=== PATIENT | female | born 1995 | race Caucasian/White ===

== ENCOUNTER 2022-08-26 11:41 | Outpatient (CLI) | payer OTHER, SELFPAY | END 2022-08-26 11:42 | disposition home or self-care (01) | LOC: ANHLAB 11:48 | PROVIDERS: PCP Internal Medicine; Visit Provider Obstetrics & Gynecology | DX: O20.0 Threatened abortion (principal) | CPT/HCPCS: 36415; 84702 ==

== ENCOUNTER 2022-08-27 05:43 | Emergency (ER) | payer OTHER, SELFPAY ==
--- NOTE | ~2022-08-27 | US_ITS ---
Pelvic ultrasound. Clinical History: First trimester , abdominal pain Technique: Realtime transabdominal and transvaginal scanning of the pelvis was performed. Color flow Doppler and Doppler spectral analysis were performed. Findings: The uterus is anteverted. There is an irregular gestational sac. Average sac diameter of 2 cm corresponds to an estimated gestational age of 6 weeks 6 days, but no distinct pole or yolk sac identified. The right ovary measures 2.6 x 3.1 x 2.1 cm. No significant right ovarian or adnexal mass is seen. The left ovary is not visualized. No significant left ovarian or adnexal mass is seen. There is no evidence of free fluid in the cul de sac. Impression: Irregular intrauterine gestational sac with estimated gestational age of 6 weeks 6 days by average sa c diameter, but no visible pole or yolk sac. Findings are suspicious for blighted ovum versus m issed /spontaneous in progress. Reviewed, dictated and finalized at location [facility]. Impression: Irregular intrauterine gestational sac with estimated gestational age of 6 week s 6 days by average sac diameter, but no visible pole or yolk sac. Findin gs are suspicious for blighted ovum versus missed /spontaneous in progress.
[2022-08-27 05:45] VITALS: BP 121/74; PULSE 51; RESP 18; TEMP 36.9; O2SAT 98
--- NOTE | 2022-08-27 06:53 | PC.NURSE ---
Pt states she is 7 weeks . Yesterday morning she had some vaginal bleeding that lessened throughout the day. She called her OB's office and went in and had blood drawn and has an ultrasound scheduled for this morning. She denies any current vaginal bleeding. States she came in this morning because she woke up around 0500 with lower abdominal cramping. States cramping comes in waves. Denies nausea/vomiting.
[2022-08-27 07:12] LABS: Basophils Percent Auto 0.5 % (0.2-1.2); Eosinophils Absolute Auto 0.1 K/mm3 (0-0.3); Eosinophils Percent Auto 0.6 % (0-4.4); Hematocrit 45.7 % (37.0-47.0); Hemoglobin 15.4 g/dL (12.0-15.0); Immature Granulocyte Absolute 0.03 K/mm3 (0.00-0.031); Immature Granulocyte Percent A 0.4 % (0-0.5); Lymphocytes Absolute Auto 2.47 K/mm3 (0.9-3.2); Lymphocytes Percent Auto 28.9 % (18.3-44.2); Mean Corpuscular HGB Conc 33.7 g/dl (32-36); Mean Corpuscular Hemoglobin 30.2 pg (26-34); Mean Corpuscular Volume 89.6 fl (80-100); Mean Platelet Volume 9.2 fl (7.4-10.4); Monocytes Absolute Auto 0.7 K/mm3 (0.1-0.6); Monocytes Percent Auto 8.2 % (2.6-8.5); Neutrophils Absolute Auto 5.3 K/mm3 (1.3-6.7); Neutrophils Percent Auto 61.4 % (45.5-73.1); Platelet Count Result 327 k/mm3 (150-375); Red Cell Distribution Width 13.8 % (11.5-14.5); White Blood Count 8.6 K/mm3 (4.5-10.0)
[2022-08-27 07:22] LABS: Lipase 43 U/L (23-300)
[2022-08-27 07:23] LABS: Alanine Aminotransferase 22 U/L (6-35); Albumin Level 3.9 g/dL (3.5-5.1); Alkaline Phosphatase 51 U/L (38-126); Anion Gap 7 mmol/L (8-16); Aspartate Amino Transferase 20 U/L (14-36); Bilirubin,Total 0.7 mg/dL (0.2-1.3); Blood Urea Nitrogen 12 mg/dL (7-17); Calcium 8.9 mg/dL (8.4-10.2); Carbon Dioxide 23 mmol/L (22-30); Chloride 107 mmol/L (98-107); Estimated CRCL calculation 112 ml/min; Estimated Glomerular Filt Rate > 60; Glucose 87 mg/dL (65-110); Potassium 3.8 mmol/L (3.4-5.0); Sodium 137 mmol/L (137-145)
--- NOTE | 2022-08-27 07:39 | ED.ABDPAIN ---
HPI - Abdominal Pain General Chief Complaint: Abdominal Pain Stated Complaint: abd pain Time Seen by Provider: 08/27/22 07:39 Source: patient and family Mode of arrival: ambulatory Limitations: no limitations History of Present Illness HPI narrative: Patient is 6, para 0, 3 presented to the ED with lower abdominal cramps that started at 5 AM. Intermittent. Patient been having vaginal spotting for over 1 week, was seen by her family physician 4 days ago for vaginal spotting, had pelvic ultrasound at that time. Patient believes that she is 7 weeks . She denies any fever, chills, nausea, vomiting. Review of Systems Review of Systems: All systems reviewed & are unremarkable except as noted in HPI and below Exam Narrative: General appearance: Well-developed, well-nourished Skin: Normal color Head: Normocephalic, nontraumatic Eyes: Clear conjunctiva ENT: Oropharynx normal, ears normal, nose normal Neck: Supple, nontender Chest and respiratory: Airway patent, no respiratory distress, no accessory muscle use Heart: Regular rate/rhythm Abdomen: Soft, nontender, no organomegaly, quiet bowel sounds Vascular: Normal peripheral pulses, normal capillary refill. Musculoskeletal: Normal range of motion, nontender back Neurologic: Alert and oriented ?3, CLINICAL UNIT COORDINATOR is normal as tested, no gross motor deficit Course Vital Signs Vital signs: Vital Signs Temperature 36.9 C 08/27/22 05:45 Pulse Rate 51 L 08/27/22 05:45 Respiratory Rate 18 08/27/22 05:45 Blood Pressure 121/74 08/27/22 05:45 Pulse Oximetry 98 08/27/22 05:45 Oxygen Delivery Room Air 08/27/22 05:45 Temperature 36.9 C 08/27/22 05:45 Pulse Rate 51 L 08/27/22 05:45 Respiratory Rate 18 08/27/22 05:45 Blood Pressure 121/74 08/27/22 05:45 Pulse Oximetry 98 08/27/22 05:45 Oxygen Delivery Room Air 08/27/22 05:45 MDM - Abdominal Pain Lab Data 08/27/22 07:05 08/27/22 07:05 Labs: Lab Results 08/27/22 08/27/22 Range/Units 07:05 08:25 WBC 8.6 (4.5-10.0) K/mm3 RBC 5.10 (4.2-5.4) M/mm3 Hgb 15.4 H (12.0-15.0) g/dL Hct 45.7 (37.0-47.0) % MCV 89.6 (80-100) fl MCH 30.2 (26-34) pg MCHC 33.7 (32-36) g/dl RDW 13.8 (11.5-14.5) % Plt Count 327 (150-375) k/mm3 MPV 9.2 (7.4-10.4) fl Immature Gran % (Auto) 0.4 (0-0.5) % Neut % (Auto) 61.4 (45.5-73.1) % Lymph % (Auto) 28.9 (18.3-44.2) % Hale % (Auto) 8.2 (2.6-8.5) % Eos % (Auto) 0.6 (0-4.4) % Baso % (Auto) 0.5 (0.2-1.2) % Lymph # (Auto) 2.47 (0.9-3.2) K/mm3 Hale # (Auto) 0.7 H (0.1-0.6) K/mm3 Eos # (Auto) 0.1 (0-0.3) K/mm3 Baso # (Auto) 0.0 (0.0-0.1) K/mm3 Abs Immat Gran (auto) 0.03 (0.00-0.031) K/mm3 Absolute Neuts (auto) 5.3 (1.3-6.7) K/mm3 Absolute Nucleated RBC 0.0 (0.0-0.012) K/mm3 Nucleated RBC % 0.0 (0.0-0.2) % Sodium 137 (137-145) mmol/L Potassium 3.8 (3.4-5.0) mmol/L Chloride 107 (98-107) mmol/L Carbon Dioxide 23 (22-30) mmol/L Anion Gap 7 L (8-16) mmol/L BUN 12 (7-17) mg/dL Creatinine 0.70 (0.7-1.0) mg/dL Estim Creat Clear Calc 112 ml/min Estimated GFR > 60 (59 - ) Glucose 87 (65-110) mg/dL Calcium 8.9 (8.4-10.2) mg/dL Total Bilirubin 0.7 (0.2-1.3) mg/dL AST 20 (14-36) U/L ALT 22 (6-35) U/L Alkaline Phosphatase 51 (38-126) U/L Total Protein 7.0 (6.3-8.2) g/dL Albumin 3.9 (3.5-5.1) g/dL Lipase 43 (23-300) U/L Beta HCG, Quant 92529.00 mIU/ML Urine Color Pending Urine Appearance Pending Urine pH Pending Ur Specific Honeydew Pending Urine Protein Pending Urine
[2022-08-27 08:55] VITALS: BP 118/84; PULSE 80; RESP 16; O2SAT 100
[2022-08-27 08:56] LABS: Bacteria Urine 4+ /hpf; Bilirubin Urine Negative (Negative); Blood Urine Trace (Negative); Color Urine Yellow (Yellow); Glucose Urine UA Negative (Negative); Ketones Urine Negative (Negative); Leukocyte Esterase Ur Trace LEU/UL (Negative); Nitrate Urine Positive (Negative); Non Pathogenic Casts 0-2; Protein Urine Negative (Negative); RBC Urine 0-2 /hpf (0-2); Specific Grav Ur 1.012 (1.001-1.035); Squamous Epithelial Cell Urine Few /hpf (Few); Urobilinogen Urine 0.2 mg/dL (<2.0); pH Urine 7.5 (5.0-9.0)
[2022-08-27 09:01] LABS: Add Urine Microscopic? YES; Appearance Urine Clear (Clear)
== END 2022-08-27 08:55 | disposition home or self-care (01) ==
PROVIDERS: Emergency Medicine; Emergency Provider Emergency Medicine; PCP Internal Medicine
DX: O20.0 Threatened abortion (principal); Z3A.01 Less than 8 weeks gestation of pregnancy
CPT/HCPCS: 36415; 76801; 76817; 80053; 81001; 83690; 84702; 85025; 85461; 86850; 86900; 86901; 87077; 87086; 87186; 99284

== ENCOUNTER 2022-10-01 02:19 | Day surgery (SDC) | payer OTHER, SELFPAY ==
[2022-09-28 09:13] VITALS: BMI 41.0
--- NOTE | 2022-09-28 09:16 | PC.NURSE ---
Report to the Outpatient Waiting Room, entrance under the green pavilion located off [facility], at time 0700 on date 10/01/22. Planned Procedure Time: 0900. Time changes happen often and if your time is changed the preop area will call you the afternoon before. - You and your visitor will be asked to self-screen and do not enter if you have any COVID symptoms. - A mask is optional within the hospital at this time. Patients may have clear liquids (water, carbonated beverages, clear teas, apple juice) until 3 hours prior to surgery with a maximum of 20 ounces. - No food from midnight until time of surgery Take the following medications with a SIP of water the morning of surgery: N/A DO NOT STOP ANY OF YOUR OTHER PRESCRIPTION MEDICATIONS PRIOR TO SURGERY ?EXCEPT THE FOLLOWING Medications to discontinue per physician: N/A Date to take last dose: N/A Please no make-up, nail armenian, hairspray, perfume, deodorant, or body powder the day of surgery. No jewelry (including any body piercings) or valuables the day of surgery, leave them at home. Please take a shower or bath the night before, or the morning of, surgery with an antibacterial soap. Wear comfortable, loose fitting clothing. - Jewelry must be removed prior to entering the operating room. Rings and piercings that are not removed may be cut off. - The hospital will not accept responsibility for valuables. - Please leave all valuables, including medications, at home the day of surgery. If you are going home after surgery, a licensed double bottom driver must drive you home. - NO public transportation without another adult if you receive anesthesia. - We recommend that an adult stay with you for 24 hours following discharge. - We also recommend that you do not drive, make important decision, drink alcoholic beverages, or take any drugs that were not prescribed by your health care provider for at least 24 hours after your discharge time. Follow any additional instructions given to you from your surgeon. If you or anyone in your household have experienced Covid symptoms in the past week, please notify your surgeon or the nurse liaison at the phone number below for possible testing. Telephone instructions given to PT - ENRIQUE MI and asked if any additional questions and then verbalized understanding. Patient advised to call surgeon office or pre surgery nurse liaison [phone] if any additional questions.
[2022-10-01] MEDS: LACTATED RINGERS 1,000 ML 30 ML IV CONT ×2 (07:26→10:06)
[2022-10-01] MEDS: ONDANSETRON INJ 4 MG/2 ML VIAL IV PUSH (07:32)
[2022-10-01] MEDS: FAMOTIDINE 20 MG/2 ML VIAL IV PUSH (07:32)
[2022-10-01] MEDS: ACETAMINOPHEN 500 MG TABLET 1000 MG PO (07:33)
--- NOTE | 2022-10-01 07:39 | WPDANESEPPF ---
Anes - Initial Pre Proc Eval Procedure: Operation Date: 10/01/22 09:00 Proposed Procedures p Suction Dilation and Curettage - Pamela Rosales MD Date/Time: 10/01/22 07:39 Surgeon: Pamela Rosales MD Pre Op Diagnosis: Missed Ab Patient Data Age: 26 Gender: F Height: 1.52 m Weight: 95.25 kg Allergies Allergy/AdvReac Type Severity Reaction Status Date / Time No Known Allergies Allergy Verified 10/01/22 07:39 Home Medications Medication Instructions Recorded Confirmed Type No Home Medications 09/28/22 09/28/22 History Patient hx anesthesia problems: none Family hx anesthesia problems: none Results Review: All pre-operative results and documents have been reviewed as part of the pre-operative evaluation. FORMERLY [facility], [facility] Past Medical History Medical History (Updated 10/01/22 @ 07:39 by Marcio Garcia MD) Morbid obesity Social History Social History Smoking status: Never smoker Alcohol intake: current Drinks per week: 3 Alcohol use details: WHEN NOT Substance use: never Substance use type: does not use Living arrangements: with family Spiritual care concerns: No Anes - Eval Final PreProcedure Day of Procedure 10/01/22 07:39 Patient weight: morbidly obese Heart: regular rate and rhythm Lungs: clear to auscultation Airway: Mallampati scale class II Neurological: alert and oriented Last oral intake: >/= 8 hours ASA classification: II Emergent: no Anesthetic plan: proceed Anesthesia type and monitoring: general GIVS Results Review: All pre-operative results and documents have been reviewed as part of the pre-operative evaluation. Informed Consent: The patient's anesthetic plan and its attendant risks and benefits were discussed with the patient/family/POA. Questions were solicited and answers provided to the satisfaction of the patient/family/POA.
[2022-10-01 07:41] VITALS: BP 114/72; PULSE 75; RESP 18; TEMP 36.6; O2SAT 100
--- NOTE | 2022-10-01 09:17 | WPDHPUPDATE1 ---
History and Physical Update Update Date/Time: 10/01/22 09:17 History and Physical has been reviewed, including an updated exam of the patient. There are NO changes in the patient's condition. Risks, benefits, and alternatives have been discussed and questions answered. Patient agrees to proceed with procedure.
[2022-10-01] MEDS: LIDOCAINE HCL 1% LOCAL INJ 20 ML VIAL INFILTRATE (09:57)
[2022-10-01] MEDS: KETOROLAC 30 MG/ML VIAL (*BKC) IV PUSH (09:57)
--- NOTE | 2022-10-01 10:00 | SUR.OPER ---
x2 specimens sent One specimen was labeled products of conception for chromosomal analysis and another specimen was labeled products of conception and placed formalin for possible molar . Surgeon out specimen himself. Formalin specimen placed in path room per circulating nurse and chromosome analysis specimen sent to lab per PCT.
[2022-10-01 10:06] VITALS: BP 99/64; PULSE 95; RESP 16; O2SAT 96
--- NOTE | 2022-10-01 10:18 | W.PM.PROC2 ---
Procedure Note - Detailed Date of Procedure 10/01/22 Pre-op Diagnosis Missed Ab Post-op Diagnosis Same Procedure Performed Suction D&C Surgeon Pamela Rosales MD Anesthesia MAC Indications missed Findings normal-appearing vulva vagina and cervix to. Moderate amount of products conception within the uterus. 8 cm uterus Description of Procedure the patient was taken the operating room. She was prepped and draped in dorsal lithotomy position after induction of mac anesthesia. A speculum was placed in the vagina. Cervix grasped with tenaculum. The cervix was dilated to about 1 cm Using Bain dilators. A 8. Hebrew curved curette was used to perform suction D&C. The curette was introduced and vacuum was applied. The curette was removed over all surfaces of the intrauterine cavity multiple times. This was done until all the surfaces were clear and had the familiar grainy texture they can be felt through the instrument. A sharp curette was then used to curettage all the surfaces. The suction cup was then reapplied 1 more time to remove any debris. The instruments were removed. The speculum and tenaculum were removed. The patient tolerated the procedure well. She was taken recovery room stable condition. Estimated Blood Loss -200.0 Drains No Packing No Pathology Yes Complications No immediate complications Condition Stable Disposition PACU
[2022-10-01 10:30] VITALS: BP 108/69; PULSE 69; RESP 16; O2SAT 100
[2022-10-01 11:00] VITALS: BP 121/71; PULSE 68; RESP 16
== END 2022-10-01 11:10 | disposition home or self-care (01) ==
PROVIDERS: PCP Internal Medicine; Visit Provider Obstetrics & Gynecology
PROC: (CPT 59820; principal; 2022-10-01 09:00)
DX: O02.1 Missed abortion (principal)
CPT/HCPCS: 59820; 88264; 88305; A9270; J1100; J1885; J2250; J2405; J2704; J3010; J7120

== ENCOUNTER 2022-11-10 12:59 | Outpatient (CLI) | payer OTHER, SELFPAY ==
[2022-11-10 14:01] LABS: Beta HCG Quantitative 13.22 mIU/ML
== END 2022-11-10 13:00 | disposition home or self-care (01) ==
PROVIDERS: PCP Internal Medicine; Visit Provider Obstetrics & Gynecology
DX: N91.2 Amenorrhea, unspecified (principal)
CPT/HCPCS: 36415; 84702

== ENCOUNTER 2022-11-16 12:22 | Outpatient (CLI) | payer OTHER, SELFPAY ==
[2022-11-16 14:43] LABS: Beta HCG Quantitative 6.92 mIU/ML
== END 2022-11-16 12:23 | disposition home or self-care (01) ==
PROVIDERS: PCP Internal Medicine; Visit Provider Obstetrics & Gynecology
DX: O03.9 Complete or unspecified spontaneous abortion without complication (principal)
CPT/HCPCS: 36415; 84702

== ENCOUNTER 2022-12-16 12:32 | Outpatient (RCR) | payer OTHER, SELFPAY ==
[2022-12-19 10:25] LABS: Progesterone 26.1 ng/mL (***)
== END 2023-03-16 23:59 | disposition home or self-care (01) ==
LOC: ANHLAB 12:32
PROVIDERS: PCP Internal Medicine; Visit Provider Obstetrics & Gynecology
DX: Z87.59 Personal history of other complications of pregnancy, childbirth and the puerperium (principal)
CPT/HCPCS: 36415; 84144; 84702

== ENCOUNTER 2022-12-18 12:23 | Outpatient (RCR) | payer OTHER, SELFPAY ==
[2022-11-08 17:58] LABS: Beta HCG Quantitative 22.87 mIU/ML
[2022-11-26 13:17] LABS: Basophils Percent Auto 0.5 % (0.2-1.2); Eosinophils Absolute Auto 0.1 K/mm3 (0-0.3); Eosinophils Percent Auto 1.1 % (0-4.4); Hematocrit 46.7 % (37.0-47.0); Hemoglobin 15.5 g/dL (12.0-15.0); Immature Granulocyte Absolute 0.01 K/mm3 (0.00-0.031); Immature Granulocyte Percent A 0.1 % (0-0.5); Lymphocytes Absolute Auto 2.81 K/mm3 (0.9-3.2); Mean Corpuscular HGB Conc 33.2 g/dl (32-36); Mean Corpuscular Hemoglobin 30.5 pg (26-34); Mean Corpuscular Volume 91.9 fl (80-100); Mean Platelet Volume 9.3 fl (7.4-10.4); Monocytes Absolute Auto 0.6 K/mm3 (0.1-0.6); Monocytes Percent Auto 6.9 % (2.6-8.5); Neutrophils Percent Auto 58.4 % (45.5-73.1); Platelet Count Result 328 k/mm3 (150-375); Red Blood Count 5.08 M/mm3 (4.2-5.4); Red Cell Distribution Width 13.5 % (11.5-14.5); White Blood Count 8.5 K/mm3 (4.5-10.0)
[2022-11-26 13:41] LABS: Alanine Aminotransferase 24 U/L (6-35); Albumin Level 4.2 g/dL (3.5-5.1); Alkaline Phosphatase 59 U/L (38-126); Anion Gap 10 mmol/L (8-16); Aspartate Amino Transferase 25 U/L (14-36); Bilirubin,Total 0.8 mg/dL (0.2-1.3); Blood Urea Nitrogen 14 mg/dL (7-17); Calcium 8.8 mg/dL (8.4-10.2); Carbon Dioxide 22 mmol/L (22-30); Chloride 104 mmol/L (98-107); Cholesterol 180 mg/dL (0-200); Estimated Glomerular Filt Rate > 60; Glucose 87 mg/dL (65-110); HDL Direct 46 mg/dL; Potassium 4.4 mmol/L (3.4-5.0); Sodium 136 mmol/L (137-145); Triglycerides 120 mg/dL (<150)
[2022-11-26 13:52] LABS: LDL Cholesterol Direct 103 mg/dL
[2022-11-26 13:56] LABS: Beta HCG Quantitative < 2.39 mIU/ML
[2022-11-26 18:00] LABS: Vitamin D 25 Hydroxy 37.8 ng/mL
== END 2023-02-04 23:59 | disposition home or self-care (01) ==
LOC: ANHLAB 12:23
PROVIDERS: PCP Internal Medicine; Visit Provider Obstetrics & Gynecology
DX: Z32.01 Encounter for pregnancy test, result positive (principal); E55.9 Vitamin D deficiency, unspecified
CPT/HCPCS: 36415; 80053; 80061; 82306; 84702; 85025

== ENCOUNTER 2023-02-08 16:14 | Emergency (ER) | payer OTHER, SELFPAY ==
[2023-02-08 16:50] VITALS: BP 104/75; PULSE 89; RESP 16; TEMP 36.8; O2SAT 96
--- NOTE | 2023-02-08 17:25 | ED.URI ---
HPI - URI/Sore Throat General Chief Complaint: Upper Respiratory Infection Stated Complaint: Sinus Pressure Time Seen by Provider: 02/08/23 17:25 Source: patient Mode of arrival: ambulatory Limitations: no limitations History of Present Illness HPI Narrative: 27-year-old female presents with complaint of left-sided sinus pressure, postnasal drainage, nasal congestion for 5 days. Afebrile. Taking OTC mucinex, nasal spray, antihistamine and sudafed. Pt is 13 wks . Taking . Checked with soda fountain clerk before starting OTC meds. All systems reviewed and negative except as noted above. Related Data Home Medications Medication Instructions Recorded Confirmed ondansetron 4 mg disintegrating 4 mg PO Q8-10H PRN Nausea 02/08/23 02/08/23 tablet progesterone micronized 200 mg 200 mg PO DAILY 02/08/23 02/08/23 capsule Allergies Allergy/AdvReac Type Severity Reaction Status Date / Time No Known Allergies Allergy Verified 02/08/23 16:56 Review of Systems Review of Systems: CONSTITUTIONAL: Denies fever, chills, or sweats. Reports fatigue. EYES: Denies visual changes, redness, or discharge. ENT: Reports rhinorrhea, congestion, sinus pressure. Denies sore throat, or otalgia. CARDIOVASCULAR: Denies chest pain, palpitations, or edema. RESPIRATORY: Denies cough or dyspnea. GASTROINTESTINAL: Denies abdominal pain, nausea, vomiting, or diarrhea. GENITOURINARY: Denies dysuria or hematuria. SKIN: Denies rash or itching. MUSCULOSKELETAL: Denies back pain, joint pain, or myalgia. NEUROLOGIC: Denies headache, numbness, or weakness. PSYCHIATRIC: Denies anxiety or depression. All other systems reviewed are negative, except as documented in HPI. [facility] Past Medical History Medical History (Updated 02/08/23 @ 17:32 by Stephany Anderson NP) Morbid obesity Social History Social History Smoking status: Never smoker Alcohol intake: current Drinks per week: 3 Alcohol use details: WHEN NOT Substance use: never Substance use type: does not use Living arrangements: with family Spiritual care concerns: No Comments At time of signature, agree with nursing past medical, surgical, social and family history. There is no relevant family history pertinent to the presenting complaint. Exam Narrative: GENERAL: This is a well-nourished, well-developed patient, in no apparent distress. HEAD: normocephalic, atraumatic. EYES: PERRL. Sclera clear/white. Vision is grossly intact. EARS: External ears normal, auditory canals clear and without drainage, erythema, purulence fluid, retracted to left TM without perforation. Right TM is normal. Hearing grossly intact. NOSE: External nose normal with purulent nasal drainage, erythema and swelling to bilateral nares. Left-sided frontal and maxillary sinus tenderness on palpation. THROAT: Mucous membranes moist, clear postnasal drainage. NECK: Neck supple, non-tender without lymphadenopathy, masses or thyromegaly. CARDIOVASCULAR: Regular rate and rhythm without murmurs, gallops, or rubs. RESPIRATORY: Clear to auscultation. Breath sounds equal bilaterally. No wheezes, rales, or rhonchi. SKIN: warm, Dry, intact with no suspicious lesions or rash, good texture and turgor. NEURO: awake, alert, and oriented to person, place and time. There were no obvious focal neurologic abnormalities. EXTREMITIES: No joint tenderness, effusion, or edema noted. Course Course Level of Care: Express Care Visit Vital Signs Vital signs: Vital Signs Temperature 36.8 C 02/08/23 16:50 Pulse Rate 89 02/08/23 16:50 Respiratory Rate 16 02/08/23 16:50 Blood Pressure 104/75 02/08/23 16:50 Pulse Oximetry 96 02/08/23 16:50 Oxygen Delivery Room Air 02/08/23 16:50 Temperature 36.8 C 02/08/23 16:50 Pulse Rate 89 02/08/23 16:50 Respiratory Rate 16 02/08/23 16:50 Blood Pressure 104/75 02/08/23 16
== END 2023-02-08 17:40 | disposition home or self-care (01) ==
PROVIDERS: Emergency Provider Nurse Practitioner Family; PCP Internal Medicine
DX: H66.92 Otitis media, unspecified, left ear (principal); J01.90 Acute sinusitis, unspecified; Z79.899 Other long term (current) drug therapy
CPT/HCPCS: 99213; G0463

== ENCOUNTER 2023-06-26 06:15 | Observation (INO) | payer OTHER, SELFPAY ==
[2023-06-26] VITALS (25 sets, daily range): BP systolic 109–121; BP diastolic 66–72; PULSE 82–116; O2SAT 96–99
--- NOTE | ~2023-06-26 | US_ITS ---
US OB limited, US OB transvaginal DATE: 06/26/2023 08:01 (accession [id number]), 06/26/2023 08:02 (accession [id number]) INDICATION: Vaginal bleeding TECHNIQUE: Real-time imaging via transabdominal and transvaginal approaches COMPARISON: 08/27/2022 obstetrical ultrasound FINDINGS: Live bailey intrauterine gestation, fetus in longitudinal lie, vertex presentation with heart rate of 129 bpm. The placenta is situated posteriorly on the left. Amniotic fluid index measures 19.7 cm, normal. (5th percentile CARLOS: 8.6 cm; 95th percentile CARLOS: 24.2 cm The cervix measures approximately 3 cm length, with mild funneling and mild fluid in the cervical can al. IMPRESSION: Uterine cervix measures approximately 3 cm length, with mild funneling Vertex presentation Amniotic fluid index measures 19.7 cm, normal Reviewed, dictated and finalized at [facility]. Reviewed, dictated and finalized at location A. IMPRESSION: Uterine cervix measures approximately 3 cm length, with mild funnel ing Vertex presentation Amniotic fluid index measures 19.7 cm, normal
[2023-06-26 07:13] LABS: Basophils Percent Auto 0.3 % (0.2-1.2); Eosinophils Absolute Auto 0.1 K/mm3 (0-0.3); Eosinophils Percent Auto 0.8 % (0-4.4); Hematocrit 36.2 % (37.0-47.0); Hemoglobin 12.1 g/dL (12.0-15.0); Immature Granulocyte Absolute 0.05 K/mm3 (0.00-0.031); Immature Granulocyte Percent A 0.4 % (0-0.5); Lymphocytes Absolute Auto 1.79 K/mm3 (0.9-3.2); Lymphocytes Percent Auto 15.2 % (18.3-44.2); Mean Corpuscular HGB Conc 33.4 g/dl (32-36); Mean Corpuscular Hemoglobin 29.9 pg (26-34); Mean Corpuscular Volume 89.4 fl (80-100); Mean Platelet Volume 10.1 fl (7.4-10.4); Monocytes Absolute Auto 0.8 K/mm3 (0.1-0.6); Monocytes Percent Auto 6.9 % (2.6-8.5); Neutrophils Percent Auto 76.4 % (45.5-73.1); Platelet Count Result 309 k/mm3 (150-375); Red Blood Count 4.05 M/mm3 (4.2-5.4); Red Cell Distribution Width 13.4 % (11.5-14.5); White Blood Count 11.8 K/mm3 (4.5-10.0)
[2023-06-26 07:23] LABS: Alanine Aminotransferase 13 U/L (6-35); Albumin Level 3.5 g/dL (3.5-5.1); Alkaline Phosphatase 90 U/L (38-126); Anion Gap 7 mmol/L (4-12); Aspartate Amino Transferase 15 U/L (14-36); Bilirubin,Total 0.5 mg/dL (0.2-1.3); Blood Urea Nitrogen 7 mg/dL (7-17); Calcium 10.3 mg/dL (8.4-10.2); Carbon Dioxide 21 mmol/L (22-30); Chloride 107 mmol/L (98-107); Estimated Glomerular Filt Rate > 60; Glucose 103 mg/dL (65-110); Potassium 3.5 mmol/L (3.4-5.0); Sodium 135 mmol/L (137-145)
[2023-06-26] MEDS: NIFEdipine 10 MG CAPSULE PO ×3 (07:29→08:29)
[2023-06-26] MEDS: TERBUTALINE SULFATE 1 MG/ML VIAL 0.25 MG SUB-Q (08:53)
--- NOTE | 2023-06-26 10:50 | PM.IMHP ---
H&P: HPI History of Present Illness Date/Time: 06/26/23 10:50 Chief Complaint: vaginal bleeding Narrative: 27-year-old multipara at 31 weeks who presented with vaginal bleeding. She denies any contractions or loss of fluid. She reports good movement. She denies any nausea, vomiting, fever, chills. She denies any chest pain shortness of breath. She denies any headache, blurry vision, epigastric pain. Patient was evaluated. Speculum exam revealed a closed cervix. Additional spot cervical exam with a closed cervix. Cervical length on ultrasound was 3 cm. No evidence of abruption on ultrasound. Small amount of bright red blood initially turned dark blood. She was observed and given tocolytics for contractions that she could not feel. She is given nifedipine than terbutaline. Really resolved her contractions. She had reassuring heart rate tracing for gestational age. We agreed to discharge. She was given strict , detailed precautions. Review of Systems Review of Systems: All systems reviewed & are unremarkable except as noted in HPI and below Constitutional: Constitutional: Denies chills, Denies fatigue, Denies fever(s) and Denies weakness Eyes: Eyes: Denies blurry vision, Denies change in vision, Denies loss of peripheral vision, Denies loss of vision, Denies other visual disturbances and Denies eye pain ENT: Denies vertigo, Denies dizziness, Denies hearing loss, Denies mouth pain, Denies nasal obstruction, Denies neck mass and Denies neck pain Cardiovascular: Cardiovascular: Denies chest pain, Denies diaphoresis, Denies syncope, Denies leg edema and Denies dyspnea Respiratory: Respiratory: Denies chest congestion, Denies cough, Denies hemoptysis, Denies dyspnea and Denies wheezing Gastrointestinal: Gastrointestinal: Denies abdominal pain, Denies constipation, Denies diarrhea, Denies nausea and Denies vomiting Genitourinary: Genitourinary: Denies hematuria, Denies change in libido, Denies nocturia, Denies genital lesions, Denies flank pain and Denies urinary urgency Musculoskeletal: Musculoskeletal: Denies abnormal gait, Denies back pain, Denies myalgias, Denies arthralgias, Denies joint swelling, Denies muscle weakness and Denies neck pain Integumentary/Breasts: Skin/Breast: Denies swelling, Denies breast pain, Denies breast mass, Denies dry skin, Denies nipple discharge, Denies unusual bruising and Denies jaundice Neurologic: Denies Neuro-related abnormal movements, Denies Abnormal speech present, Denies abnormal gait, Denies behavioral changes, Denies confusion, Denies vertigo, Denies dizziness, Denies syncope, Denies loss of vision, Denies memory loss, Denies convulsions and Denies weakness Psychiatric: Psychiatric: Denies abnormal sleep pattern, Denies behavioral changes, Denies change in libido, Denies confusion, Denies depression, Denies anhedonia and Denies memory loss Endocrine: Endocrine: Reports no additional endocrine complaints, Denies change in libido and Denies fatigue Hematologic/Lymphatic: Hematologic/Lymphatic: Reports no additional hematologic/lymphatic complaints Allergic/Immunologic: Allergic/Immunologic: Reports no additional allergic/immunologic complaints and Denies wheezing PMFSH Past Medical History Medical History (Updated 06/26/23 @ 10:53 by Pamela Rosales MD) Morbid obesity Social History Social History Smoking status: Never smoker Alcohol intake: current Drinks per week: 3 Alcohol use details: WHEN NOT Substance use: never Substance use type: does not use Living arrangements: with family Spiritual care concerns: No Meds Home Medications and Allergies Home Medications Medication Instructions Recorded Confirmed Type ondansetron 4 mg disintegrating 4 mg PO Q8-10H PRN Nausea 02/08/23 06/26/23 History tablet vit no.133-ferrous 1 tablet PO DAILY 06/26/23 06/26/23 History fum
--- NOTE | 2023-07-20 07:42 | PM.OBTRLD ---
OB - Triage/Final Diagnosis Visit Information Comments/Additional reasons for admission: I have assessed the risk for this patient, Edilma Moon, and determined that she would benefit from observation care. Evaluation Laboratory results: Laboratory Tests 06/26/23 07:04 WBC 11.8 H RBC 4.05 L Hgb 12.1 D Hct 36.2 L MCV 89.4 MCH 29.9 MCHC 33.4 RDW 13.4 Plt Count 309 MPV 10.1 Immature Gran % (Auto) 0.4 Neut % (Auto) 76.4 H Lymph % (Auto) 15.2 L [place] % (Auto) 6.9 Eos % (Auto) 0.8 Baso % (Auto) 0.3 Lymph # (Auto) 1.79 [place] # (Auto) 0.8 H Eos # (Auto) 0.1 Baso # (Auto) 0.0 Abs Immat Gran (auto) 0.05 H Absolute Neuts (auto) 9.0 H Absolute Nucleated RBC 0.000 Nucleated RBC % 0.0 Sodium 135 L Potassium 3.5 Chloride 107 Carbon Dioxide 21 L Anion Gap 7 BUN 7 D Creatinine 0.70 Estim Creat Clear Calc Not Reportable Estimated GFR > 60 Glucose 103 Calcium 10.3 H Total Bilirubin 0.5 AST 15 ALT 13 Alkaline Phosphatase 90 Total Protein 7.0 Albumin 3.5 Blood Type O Positive Antibody Screen Negative Final Diagnosis (1) Other antepartum hemorrhage, third trimester: Code(s): O46.8X3 - Other antepartum hemorrhage, third trimester Status: Acute
--- NOTE | 2023-07-20 08:10 | PM.OBTRLD ---
OB - Triage/Final Diagnosis Visit Information Comments/Additional reasons for admission: I have assessed the risk for this patient, Edilma Moon, and determined that she would benefit from observation care. Evaluation Laboratory results: Laboratory Tests 06/26/23 07:04 WBC 11.8 H RBC 4.05 L Hgb 12.1 D Hct 36.2 L MCV 89.4 MCH 29.9 MCHC 33.4 RDW 13.4 Plt Count 309 MPV 10.1 Immature Gran % (Auto) 0.4 Neut % (Auto) 76.4 H Lymph % (Auto) 15.2 L [place] % (Auto) 6.9 Eos % (Auto) 0.8 Baso % (Auto) 0.3 Lymph # (Auto) 1.79 [place] # (Auto) 0.8 H Eos # (Auto) 0.1 Baso # (Auto) 0.0 Abs Immat Gran (auto) 0.05 H Absolute Neuts (auto) 9.0 H Absolute Nucleated RBC 0.000 Nucleated RBC % 0.0 Sodium 135 L Potassium 3.5 Chloride 107 Carbon Dioxide 21 L Anion Gap 7 BUN 7 D Creatinine 0.70 Estim Creat Clear Calc Not Reportable Estimated GFR > 60 Glucose 103 Calcium 10.3 H Total Bilirubin 0.5 AST 15 ALT 13 Alkaline Phosphatase 90 Total Protein 7.0 Albumin 3.5 Blood Type O Positive Antibody Screen Negative Final Diagnosis (1) Other antepartum hemorrhage, third trimester: Code(s): O46.8X3 - Other antepartum hemorrhage, third trimester Status: Acute
== END 2023-06-26 10:30 | disposition home or self-care (01) ==
PROVIDERS: Admitting Provider Obstetrics & Gynecology; PCP Internal Medicine; Visit Provider Obstetrics & Gynecology
DX: O46.93 Antepartum hemorrhage, unspecified, third trimester (principal); Z3A.31 31 weeks gestation of pregnancy; Z79.899 Other long term (current) drug therapy
CPT/HCPCS: 36415; 76815; 76817; 80053; 85025; 86850; 86900; 86901; 96372; A9270; G0378; G0379; J3105

== ENCOUNTER 2023-06-27 23:42 | Observation (INO) | payer OTHER, SELFPAY ==
--- NOTE | 2023-06-27 23:42 | OBADM ---
This patient, Edilma Moon, admitted to the OB room OB Post 116 for observation. Patient/family oriented to hospital policies and general routines including ID bracelet, bed and alarms, visiting hours, pain management, procedures, bathroom and other care routines, personal items, smoking policy, room service/diet, and visiting hours. Patient/Family are encouraged to report perceived risks to care and to ask questions if they do not understand what they are told or what they should do.
[2023-06-27 23:50] VITALS: BMI 41.8
[2023-06-28] VITALS (31 sets, daily range): BP systolic 101–121; BP diastolic 49–73; PULSE 79–117; RESP 16–18; TEMP 36.6–36.8; O2SAT 97–100
--- NOTE | 2023-06-28 00:15 | PC.NURSE ---
Notified Dr. Rosales of patient arrival to OB unit with complaint of abdominal pain and vaginal bleeding. Patient tomasz q1-2minutes with complaint of increased lower abdominal pain with palpation. Patient reports increased bright right vaginal bleeding noted 30minutes ago. Vaginal bleeding was noted upon evaluation. Orders recieved for d5LR IV 1000ml bolus now and terbutaline subq up to 3 doses.
[2023-06-28] MEDS: DEXTROSE 5%/LACTATED RINGERS 1,000 ML 999 ML IV CONT (00:45)
[2023-06-28] MEDS: TERBUTALINE SULFATE 1 MG/ML VIAL 0.25 MG SUB-Q ×2 (00:46→01:13)
[2023-06-28 01:10] LABS: Bacteria Urine None Seen /hpf; Non Pathogenic Casts 0-2; RBC Urine >100 /hpf (0-2); Squamous Epithelial Cell Urine Occasional /hpf (Few)
[2023-06-28 01:20] LABS: Appearance Urine Cloudy (Clear); Bilirubin Urine 1+ (Negative); Blood Urine 3+ (Negative); Color Urine Red (Yellow); Glucose Urine UA Negative (Negative); Ketones Urine Negative (Negative); Leukocyte Esterase Ur 1+ LEU/UL (Negative); Nitrate Urine Negative (Negative); Protein Urine 2+ mg/dL (Negative); Specific Grav Ur 1.012 (1.001-1.035)
[2023-06-28 01:22] LABS: Add Urine Microscopic? YES
--- NOTE | 2023-06-28 02:22 | PC.NURSE ---
Notified Dr. Rosales of UA results and patient continued contractions after fluid bolus and terbutaline. Patient HR >100 at this time. Patient states she is no longer feeling contractions. Orders recieved for procardia 10mg [id number] x3 doses.
[2023-06-28] MEDS: NIFEdipine 10 MG CAPSULE PO ×3 (02:33→03:35)
--- NOTE | 2023-06-28 04:38 | PC.NURSE ---
Updated Dr. Rosales on maternal and assessments. Contractions have resolved and patient denies any cramping or pain at this time. FHT appropriate for gestational age. Patient still having bright red vaginal bleeding, small amounts of vaginal bleeding noted on chux pads when patient ambulates to restroom. No additional orders at this time.
--- NOTE | 2023-06-28 08:08 | PC.NURSE ---
Dr. Rosales at the bedside discussing POC with the pt. Pt and Dr. Rosales agree to discharge to be seen in the OB office immediately after discharge from hospital for additional ultrasound and decide further POC.
--- NOTE | 2023-06-28 08:19 | PM.IMHP ---
H&P: HPI History of Present Illness Date/Time: 06/28/23 08:19 Chief Complaint: Vaginal bleeding narrative: This patient is a 27-year-old multiparous female at 31 weeks gestation who presented for a 2nd time in 2 days with vaginal bleeding. Initially the vaginal bleeding quickly resolved and became dark. This episode has shown persistent bright red bleeding that was modest and then taper down to a very small amount. Patient denies any contractions, loss of fluid. she reports good movement. She denies any nausea, vomiting, fever, chills. Review of Systems Review of Systems: All systems reviewed & are unremarkable except as noted in HPI and below Constitutional: Constitutional: Denies chills, Denies fatigue, Denies fever(s) and Denies weakness Eyes: Eyes: Denies blurry vision, Denies change in vision, Denies loss of peripheral vision, Denies loss of vision, Denies other visual disturbances and Denies eye pain ENT: Denies vertigo, Denies dizziness, Denies hearing loss, Denies mouth pain, Denies nasal obstruction, Denies neck mass and Denies neck pain Cardiovascular: Cardiovascular: Denies chest pain, Denies diaphoresis, Denies syncope, Denies leg edema and Denies dyspnea Respiratory: Respiratory: Denies chest congestion, Denies cough, Denies hemoptysis, Denies dyspnea and Denies wheezing Gastrointestinal: Gastrointestinal: Denies abdominal pain, Denies constipation, Denies diarrhea, Denies nausea and Denies vomiting Genitourinary: Genitourinary: Denies hematuria, Denies change in libido, Denies nocturia, Denies genital lesions, Denies flank pain and Denies urinary urgency Musculoskeletal: Musculoskeletal: Denies abnormal gait, Denies back pain, Denies myalgias, Denies arthralgias, Denies joint swelling, Denies muscle weakness and Denies neck pain Integumentary/Breasts: Skin/Breast: Denies swelling, Denies breast pain, Denies breast mass, Denies dry skin, Denies nipple discharge, Denies unusual bruising and Denies jaundice Neurologic: Denies Neuro-related abnormal movements, Denies Abnormal speech present, Denies abnormal gait, Denies behavioral changes, Denies confusion, Denies vertigo, Denies dizziness, Denies syncope, Denies loss of vision, Denies memory loss, Denies convulsions and Denies weakness Psychiatric: Psychiatric: Denies abnormal sleep pattern, Denies behavioral changes, Denies change in libido, Denies confusion, Denies depression, Denies anhedonia and Denies memory loss Endocrine: Endocrine: Reports no additional endocrine complaints, Denies change in libido and Denies fatigue Hematologic/Lymphatic: Hematologic/Lymphatic: Reports no additional hematologic/lymphatic complaints Allergic/Immunologic: Allergic/Immunologic: Reports no additional allergic/immunologic complaints and Denies wheezing PMFSH Past Medical History Medical History (Updated 06/26/23 @ 10:53 by Pamela Rosales MD) Morbid obesity Social History Social History Smoking status: Never smoker Alcohol intake: current Drinks per week: 3 Alcohol use details: WHEN NOT Substance use: never Substance use type: does not use Living arrangements: with family Spiritual care concerns: No Meds Home Medications and Allergies Home Medications Medication Instructions Recorded Confirmed Type vit no.133-ferrous 1 tablet PO DAILY 06/26/23 06/28/23 History fumarate 28 mg-folic acid 800 mcg tablet () Allergies Allergy/AdvReac Type Severity Reaction Status Date / Time No Known Allergies Allergy Verified 06/28/23 04:11 Vital Signs Vital Signs - 24 hr 06/28/23 00:05 06/28/23 00:06 06/28/23 00:10 Temperature 97.9 F Pulse Rate 79 Respiratory Rate 18 Blood Pressure 119/73 Pulse Oximetry 99 99 Oxygen Delivery 06/28/23 00:15 06/28/23 00:20 06/28/23 00:45 Temperature Pulse Rate 84 Respiratory Rate Blood
[2023-06-28] MEDS: NIFEdipine 30 MG TAB.ER.24 PO (08:24)
== END 2023-06-28 08:37 | disposition home or self-care (01) ==
PROVIDERS: Admitting Provider Obstetrics & Gynecology; PCP Internal Medicine; Visit Provider Obstetrics & Gynecology
DX: O46.8X3 Other antepartum hemorrhage, third trimester (principal); Z3A.32 32 weeks gestation of pregnancy; Z79.899 Other long term (current) drug therapy
CPT/HCPCS: 81001; 87086; 96372; A9270; G0378; G0379; J3105; J7121

== ENCOUNTER 2023-07-03 23:29 | Observation (INO) | payer OTHER, SELFPAY ==
[2023-07-04 00:18] LABS: Appearance Urine Clear (Clear); Bacteria Urine None Seen /hpf; Bilirubin Urine Negative (Negative); Blood Urine 3+ (Negative); Color Urine Yellow (Yellow); Glucose Urine UA Negative (Negative); Ketones Urine Negative (Negative); Leukocyte Esterase Ur 1+ LEU/UL (Negative); Nitrate Urine Negative (Negative); Non Pathogenic Casts 0-2; Protein Urine Negative (Negative); RBC Urine 0-2 /hpf (0-2); Specific Grav Ur 1.008 (1.001-1.035); Squamous Epithelial Cell Urine Occasional /hpf (Few); Urobilinogen Urine 0.2 mg/dL (<2.0); pH Urine 6.5 (5.0-9.0)
[2023-07-04 00:23] LABS: Add Urine Microscopic? YES
[2023-07-04] MEDS: LACTATED RINGERS 1,000 ML 999 ML IV CONT (00:53)
[2023-07-04 00:54] VITALS: BMI 41.8
--- NOTE | 2023-07-04 00:54 | OBADM ---
This patient, Edilma Moon, admitted to the OB room Labor/Delivery/Recovery 106 for observation. Patient/family oriented to hospital policies and general routines including ID bracelet, bed and alarms, visiting hours, pain management, procedures, bathroom and other care routines, personal items, smoking policy, room service/diet, and visiting hours. Patient/Family are encouraged to report perceived risks to care and to ask questions if they do not understand what they are told or what they should do.
[2023-07-04 02:03] VITALS: TEMP 36.4
[2023-07-04] MEDS: NITROFURANTOIN MONOHYD MACROCR 100 MG CAP PO (02:13)
--- NOTE | 2023-07-29 21:15 | PM.OBTRLD ---
OB - Triage/Final Diagnosis Visit Information Comments/Additional reasons for admission: I have assessed the risk for this patient, Edilma Moon, and determined that she would benefit from observation care. Evaluation Laboratory results: Laboratory Tests 07/04/23 00:07 Urine Color Yellow Urine Appearance Clear Urine pH 6.5 Ur Specific [place] 1.008 Urine Protein Negative Urine Glucose (UA) Negative Urine Ketones Negative Ur Blood (Man) 3+ H Urine Nitrate Negative Urine Bilirubin Negative Urine Urobilinogen 0.2 Leukocyte Esterase Rfl 1+ H Urine RBC 0-2 Urine WBC 6-10 H Ur Squamous Epith Cells Occasional Urine Bacteria None seen Urine Casts 0-2 Final Diagnosis (1) False labor: Code(s): O47.9 - False labor, unspecified Status: Acute
== END 2023-07-04 02:17 ==
PROVIDERS: Admitting Provider Obstetrics & Gynecology; PCP Internal Medicine; Visit Provider Obstetrics & Gynecology
DX: O47.03 False labor before 37 completed weeks of gestation, third trimester (principal); Z3A.33 33 weeks gestation of pregnancy
CPT/HCPCS: 81001; 87086; 87088; A9270; G0378; G0379; J7120

== ENCOUNTER 2023-07-06 03:36 | Inpatient (IN) | payer OTHER, SELFPAY ==
[2023-07-06] VITALS (133 sets, daily range): BP systolic 99–129; BP diastolic 53–82; PULSE 73–123; RESP 16–20; TEMP 36.5–37.6; O2SAT 95–100; BMI 35.9
[2023-07-06] MEDS: LACTATED RINGERS 1,000 ML 75 ML IV CONT (04:46)
[2023-07-06] MEDS: MAGNESIUM SULF 6 GM/WATER150ML 6 GM/150 ML BAG IVPB (04:46)
[2023-07-06] MEDS: MAGNESIUM SULF 20GM/WATER500ML 500 ML 50 MG IV CONT (05:24)
[2023-07-06] MEDS: AMPICILLIN 2 GM/NS 100 ML 2 GM/100 ML BAG IVPB (05:24)
[2023-07-06 05:30] LABS: Basophils Percent Auto 0.1 % (0.2-1.2); Eosinophils Percent Auto 0.2 % (0-4.4); Hematocrit 39.9 % (37.0-47.0); Hemoglobin 13.1 g/dL (12.0-15.0); Immature Granulocyte Absolute 0.11 K/mm3 (0.00-0.031); Immature Granulocyte Percent A 0.7 % (0-0.5); Lymphocytes Absolute Auto 1.03 K/mm3 (0.9-3.2); Lymphocytes Percent Auto 6.1 % (18.3-44.2); Mean Corpuscular HGB Conc 32.8 g/dl (32-36); Mean Corpuscular Hemoglobin 29.7 pg (26-34); Mean Corpuscular Volume 90.5 fl (80-100); Mean Platelet Volume 10.7 fl (7.4-10.4); Monocytes Percent Auto 5.7 % (2.6-8.5); Neutrophils Absolute Auto 14.7 K/mm3 (1.3-6.7); Neutrophils Percent Auto 87.2 % (45.5-73.1); Platelet Count Result 341 k/mm3 (150-375); Red Blood Count 4.41 M/mm3 (4.2-5.4); Red Cell Distribution Width 13.4 % (11.5-14.5); White Blood Count 16.9 K/mm3 (4.5-10.0)
[2023-07-06] MEDS: BETAMETHASONE SOD PHOS/ACETATE 30 MG/5 ML VIAL 12 MG IM (05:55)
--- NOTE | 2023-07-06 05:55 | LDADM ---
This patient, Edilma Moon, was admitted to OB Post 115 on 07/06/23 at 03:37. Plans for labor, pain management and were discussed with patient. Patient/family oriented to hospital policies and general routines including ID bracelet, bed and alarms, visiting hours, pain management, procedures, bathroom and other care routines, personal items, smoking policy, room service/diet and guest tray routines, infant security routines, and visiting hours. Patient/Family are encouraged to report perceived risks to care and to ask questions if they do not understand what they are told or what they should do. See [facility] for further documentation.
--- NOTE | 2023-07-06 06:23 | P.HP_ITS ---
H&P: [facility] History of Present Illness Date/Time: 07/06/23 06:23 Chief Complaint: G 5 P 0 at 33.6 weeks gestation arrived in LD with complaints of contractions and spotting. Pt was found to be [address] Campo notified and magnesium sulfate and antibiotics initiated. Pt has been complicated by now resolved placenta previa. pt was admitted to [facility] week after a bleeding episode, GBS negative at that time and pt released with treatment for UTI. 07/04 pt didn't think UTI meds were working still frequency and some pain switched to keflex and sent in for a dose of steroids. Hx covid during , obesity, GERD. surgical history consists of d& c and tonsillectomy. Review of Systems Review of Systems: All systems reviewed & are unremarkable except as noted in HPI and below Constitutional: Constitutional: Reports as per HPI [facility] Past Medical History Medical History (Updated 07/06/23 @ 06:[address] CNM) Morbid obesity Social History Social History Smoking status: Never smoker Alcohol intake: current Drinks per week: 3 Alcohol use details: WHEN NOT Substance use: never Substance use type: does not use Living arrangements: with family Spiritual care concerns: No Meds Home Medications and Allergies Home Medications Medication Instructions Recorded Confirmed Type vit no.133-ferrous 1 tablet PO DAILY 06/26/23 06/28/23 History fumarate 28 mg-folic acid 800 mcg tablet () nitrofurantoin 100 mg PO Q12H #10 caps 07/04/23 Rx monohydrate/macrocrystals 100 mg capsule (Macrobid) Allergies Allergy/AdvReac Type Severity Reaction Status Date / Time No Known Allergies Allergy Verified 06/28/23 04:11 Vital Signs Vital Signs - 24 hr 07/06/23 03:48 07/06/23 04:00 07/06/23 04:02 Temperature Pulse Rate 73 78 Respiratory Rate Blood Pressure 119/58 L 125/70 Pulse Oximetry 98 Oxygen Delivery 07/06/23 04:07 07/06/23 04:12 07/06/23 04:15 Temperature Pulse Rate 84 Respiratory Rate Blood Pressure 112/67 Pulse Oximetry 97 98 Oxygen Delivery 07/06/23 04:17 07/06/23 04:56 04/16/24 04:58 Temperature Pulse Rate 84 Respiratory Rate Blood Pressure 110/63 Pulse Oximetry 96 96 Oxygen Delivery 07/06/23 05:00 07/06/23 05:01 07/06/23 05:09 Temperature Pulse Rate 83 Respiratory Rate Blood Pressure 105/62 Pulse Oximetry 99 97 Oxygen Delivery 07/06/23 05:14 07/06/23 05:15 07/06/23 05:16 Temperature Pulse Rate 101 H 99 Respiratory Rate Blood Pressure 124/65 120/66 Pulse Oximetry 97 Oxygen Delivery 07/06/23 05:19 07/06/23 05:24 07/06/23 05:29 Temperature Pulse Rate Respiratory Rate Blood Pressure Pulse Oximetry 97 95 97 Oxygen Delivery 07/06/23 05:34 07/06/23 05:39 07/06/23 05:44 Temperature Pulse Rate Respiratory Rate Blood Pressure Pulse Oximetry 97 100 97 Oxygen Delivery 07/06/23 05:45 07/06/23 05:49 07/06/23 05:54 Temperature Pulse Rate 92 Respiratory Rate Blood Pressure 122/64 Pulse Oximetry 98 97 Oxygen Delivery 07/06/23 05:59 07/06/23 06:00 07/06/23 06:04 Temperature Pulse Rate 90 Respiratory Rate Blood Pressure 121/65 Pulse Oximetry 97 96 Oxygen Delivery 07/06/23 06:09 07/06/23 06:14 07/06/23 06:15 Temperature Pulse Rate 93 Respiratory Rate Blood Pressure 115/69 Pulse Oximetry 96 96 Oxygen Delivery 07/06/23 06:19 07/06/23 04:31 07/06/23 05:54 Temperature Pulse Rate 81 Respiratory Rate 20 Blood Pressure 112/67 Pulse Oximetry 100 96 Oxygen Delivery Room Air 07/06/23 05:15 Temperature 37.6 C H Pulse Rate 97 Respiratory Rate 20 Blood Pressure 122/64 Pulse Oximetry 98 Oxygen Delivery Exam Const: General: cooperative, healthy appearing and comfortable Resp: Effort & Inspection: normal respiratory effort Cardio: Rate: regular rate Rhythm: regular rhythm GI: Other: soft, gravid Skin: General skin exam: normal color Neuro: General: patient oriented x3 Extrem: Right lower extremity: normal to inspection Left lower extremity: normal to inspection H&P: Results Labs Labs: Short CBC 07/06/23 Range/Units 05:21 WBC 16.9 H (4.5-10.0) K/mm3 Hgb 13.1 (12.0-15.0) g/dL Hct 39.9 (37.0-47.0) % Plt Count 341 (150-375) k/mm3 Assessment and Plan Assessment and plan (1) labor: Code(s): O60.00 - labor without delivery, unspecified trimester Status: Acute Assessment and Plan: dr. campo co-managing care continue magnesium sulfate, antibiotics plan epidural continue to observe heart rate category 1 contractions q 1-7 minutes (2) Urinary tract infection: Code(s): N39.0 - Urinary tract infection, site not specified Status: Acute
--- NOTE | 2023-07-06 07:01 | WPDANESEPPF ---
Anes - Initial Pre Proc Eval Procedure: Labor epidural Date/Time: 07/06/23 07:01 Surgeon: Pamela Rosales MD Pre Op Diagnosis: labor pain Pre Op Diagnosis: Bleeding,Cramping Patient Data Age: 27 Gender: F Height: 1.65 m Weight: 98 kg Last Vital Signs Temp 37.6 C H 07/06/23 05:15 Pulse 102 H 07/06/23 06:51 Resp 20 07/06/23 05:15 BP 112/61 07/06/23 06:51 Pulse Ox 100 07/06/23 06:59 O2 Del Method Room Air 07/06/23 05:54 Allergies Allergy/AdvReac Type Severity Reaction Status Date / Time No Known Allergies Allergy Verified 06/28/23 04:11 Home Medications Medication Instructions Recorded Confirmed Type vit no.133-ferrous 1 tablet PO DAILY 06/26/23 06/28/23 History fumarate 28 mg-folic acid 800 mcg tablet () nitrofurantoin 100 mg PO Q12H #10 caps 07/04/23 Rx monohydrate/macrocrystals 100 mg capsule (Macrobid) Laboratory Tests 07/06/23 05:21 WBC 16.9 H K/mm3 (4.5-10.0) RBC 4.41 M/mm3 (4.2-5.4) Hgb 13.1 g/dL (12.0-15.0) Hct 39.9 % (37.0-47.0) MCV 90.5 fl (80-100) MCH 29.7 pg (26-34) MCHC 32.8 g/dl (32-36) RDW 13.4 % (11.5-14.5) Plt Count 341 k/mm3 (150-375) MPV 10.7 H fl (7.4-10.4) Immature Gran % (Auto) 0.7 H % (0-0.5) Neut % (Auto) 87.2 H % (45.5-73.1) Lymph % (Auto) 6.1 L % (18.3-44.2) [place] % (Auto) 5.7 % (2.6-8.5) Eos % (Auto) 0.2 % (0-4.4) Baso % (Auto) 0.1 L % (0.2-1.2) Lymph # (Auto) 1.03 K/mm3 (0.9-3.2) [place] # (Auto) 1.0 H K/mm3 (0.1-0.6) Eos # (Auto) 0.0 K/mm3 (0-0.3) Baso # (Auto) 0.0 K/mm3 (0.0-0.1) Abs Immat Gran (auto) 0.11 H K/mm3 (0.00-0.031) Absolute Neuts (auto) 14.7 H K/mm3 (1.3-6.7) Absolute Nucleated RBC 0.000 K/mm3 (0.0-0.012) Nucleated RBC % 0.0 % (0.0-0.2) RPR Pending Blood Type O Positive Antibody Screen Pending Patient hx anesthesia problems: none Family hx anesthesia problems: none Results Review: All pre-operative results and documents have been reviewed as part of the pre-operative evaluation. [facility] Past Medical History Medical History Morbid obesity Social History Social History Smoking status: Never smoker Alcohol intake: current Drinks per week: 3 Alcohol use details: WHEN NOT Substance use: never Substance use type: does not use Living arrangements: with family Spiritual care concerns: No Anes - Eval Final PreProcedure Day of Procedure 07/06/23 07:01 Patient weight: morbidly obese Heart: regular rate and rhythm Lungs: clear to auscultation Airway: Mallampati scale class II ASA classification: III Anesthesia type and monitoring: regional epidural and standard monitoring Results Review: All pre-operative results and documents have been reviewed as part of the pre-operative evaluation. Informed Consent: The patient's anesthetic plan and its attendant risks and benefits were discussed with the patient/family/POA. Questions were solicited and answers provided to the satisfaction of the patient/family/POA.
--- NOTE | 2023-07-06 07:06 | WPDANESEPN ---
Anes - Epidural Procedure Note Date/Time: 07/06/23 07:06 Consent: I have discussed with the patient/family/POA, the placement of an epidural catheter and the use of epidural narcotic/local anesthetic for labor analgesia and/or postoperative pain management, including associated potential risks, benefits, complications and side effects. I have discussed alternative methods of labor analgesia and/or postoperative pain management. The patient/family/POA, understand(s) and wish(es) to proceed with epidural narcotic/local anesthetic for labor analgesia and/or postoperative pain management. Time-Out: A pre-procedural Time-Out was completed immediately before starting the procedure and confirmed: Patient Identification, Site, Procedure, Patient Position and the Availability of Requisite Equipment. Clinical Indications: labor pain Epidural Insertion Note Patient position: sitting Skin prep: chlorhexidine and sterile drape Needle: 18g Tuohy-Schliff Catheter: 20g Unstyleted Technique: Loss of resistance. Level of insertion: L4/5 Catheter skin amanda (cm): 12 Length in epidural space (cm): 7 Skin anesthesia: lidocaine 1% Test dose: 1.5% Lidocaine with 1:[id number] Epi, negative for subarachnoid Inj and negative for intravascular Inj Time of test dose: 06:44 Observations: tolerated well Complications: none
[2023-07-06] MEDS: LACTATED RINGERS 1,000 ML 125 ML IV CONT (07:07)
[2023-07-06] MEDS: AMPICILLIN 1 GM/NS 50 ML 1 GM/50 ML BAG IVPB (09:40)
--- NOTE | 2023-07-06 09:43 | P.PNOB_ITS ---
OB - PN: Subj Subjective Date/time seen: 07/06/23 09:43 Interval history: SVE 7-8 cm/90/0 station, discussed plan of care with dr. campo and pt. pt aware baby will need immediate evaluation at bs and may need transfer. second dose of antibiotics administered and AROM large amount of bloody fluid, moderate blood also in vaginal vault. FHR category 1 contractions irregular OB - PN: Obj Data Labs 07/06/23 05:21 Labs: Laboratory Results - last 24 hr 07/06/23 05:21 WBC 16.9 H RBC 4.41 Hgb 13.1 Hct 39.9 MCV 90.5 MCH 29.7 MCHC 32.8 RDW 13.4 Plt Count 341 MPV 10.7 H Immature Gran % (Auto) 0.7 H Neut % (Auto) 87.2 H Lymph % (Auto) 6.1 L [place] % (Auto) 5.7 Eos % (Auto) 0.2 Baso % (Auto) 0.1 L Lymph # (Auto) 1.03 [place] # (Auto) 1.0 H Eos # (Auto) 0.0 Baso # (Auto) 0.0 Abs Immat Gran (auto) 0.11 H Absolute Neuts (auto) 14.7 H Absolute Nucleated RBC 0.000 Nucleated RBC % 0.0 Blood Type O Positive Antibody Screen Negative OB - PN A/P Time Spent With Patient Time: Total time spent is greater than 50% in coordination of care (as documented) at patient's floor/unit and/or counseling patient:
[2023-07-06 13:16] LABS: Rapid Plasma Reagin Non-Reactive (NonReactive)
--- NOTE | 2023-07-06 13:26 | PM.OBPRVD ---
OB - Vaginal Delivery Note Procedure Delivery date: 07/06/23 Events: Other (bleeding, labor) Delivery augmentation: Rupture of Membranes and Pitocin Delivery monitor: External FHT and External Uterine Route of delivery: Episiotomy description: None Laceration Description: None Specimen: Yes Quantitative Blood Loss (ml): 125 Anesthesia type: Epidural Disposition: Floor Complications: No immediate complications Baby Date of : 07/06/23 Time of : 13:16 Weeks of gestation at delivery: 33 gender: Female presentation: vertex position: Left Occiput Posterior Placenta delivery description: Spontaneous Cord Vessel Description: 3 Vessels Narrative: baby delivered and to warmer for evaluation by health communications specialist
[2023-07-06] MEDS: OXYTOCIN 30 UNITS/NS 500 ML 30 UNITS/500 ML BAG 125 UNITS IV CONT (13:49)
[2023-07-06] MEDS: FAMOTIDINE 20 MG/2 ML VIAL (13:54)
--- NOTE | 2023-07-06 16:25 | PC.NURSE ---
Patient transferred to post room #[id number] via wheelchair. Support person present. Oriented to unit, room, information board, rooming in, admission packet and security measures. Patient verbalizes understanding.
[2023-07-07 04:15] VITALS: BP 114/77; PULSE 107; RESP 16; TEMP 37.2; O2SAT 99
[2023-07-07] MEDS: ACETAMINOPHEN 325 MG TABLET 650 MG PO (05:13)
[2023-07-07] MEDS: IBUPROFEN 600 MG TABLET PO (05:14)
[2023-07-07 05:44] LABS: Hematocrit 32.1 % (37.0-47.0); Hemoglobin 10.4 g/dL (12.0-15.0)
--- NOTE | 2023-07-07 07:43 | PM.OBPNVD ---
OB - PN: Subj Subjective Date/time seen: 07/07/23 07:43 Interval history: pp day 1 doing well baby doing great! OB - PN: Obj Data Labs 07/07/23 04:08 Labs: Laboratory Results - last 24 hr 07/06/23 07/07/23 07:08 04:08 Hgb 10.4 L Hct 32.1 L RPR Non-reactive OB - PN A/P Plan day: 1 Plan: routine care Time Spent With Patient Time: Total time spent is greater than 50% in coordination of care (as documented) at patient's floor/unit and/or counseling patient: Review of Systems Review of Systems: All systems reviewed & are unremarkable except as noted in HPI and below Exam Const: General: cooperative and healthy appearing Chest: Chest palpation & inspection: normal inspection of the chest Resp: Effort & Inspection: normal respiratory effort GI: Inspection: normal to inspection Skin: General skin exam: normal color
--- NOTE | 2023-07-07 07:47 | WPDANLDPN2 ---
Anes-Prog Note L&D Date/Time: 07/07/23 07:47 Comfortable throughout: labor and delivery Neuraxial method: epidural Epidural/Spinal procedure site: clean & non-tender Neuro status: Neuro function grossly intact. Cardiovascular status: normal Respiratory status: normal Airway patency: baseline Mental status: baseline Post-Op hydration status: normal Vital Signs: Last Vital Signs Temp 99 F 07/07/23 04:15 Pulse 107 H 07/07/23 04:15 Resp 16 07/07/23 04:15 BP 114/77 07/07/23 04:15 Pulse Ox 99 07/07/23 04:15 O2 Del Method Room Air 07/06/23 05:54 Pain score (VAS): 0/10 I/O: Intake & Output 07/06/23 07/06/23 07/07/23 15:59 23:59 07:59 Intake Total 340 Output Total 500 Balance -160 Post-procedural complaints: none Patient feedback: Patient satisfied with anesthetic care.
[2023-07-07 07:51] VITALS: BP 104/54; PULSE 69; RESP 18; TEMP 36.6; O2SAT 98
[2023-07-07] MEDS: DOCUSATE SODIUM 100 MG CAPSULE PO ×2 (07:58→16:57)
[2023-07-07] MEDS: MULTIVIT/MIN/PREN/FOL AC/IRON TABLET 1 TAB PO (07:59)
--- NOTE | 2023-07-07 09:37 | PC.NURSE ---
On 07/07/23, the student, Flora Lovett, provided care and completed [facility] documentation on this patient. I have reviewed the student's documentation and agree with the findings.
--- NOTE | 2023-07-07 13:10 | PC.NURSE ---
[id number] Introductions were made. is in the bassinet with IVF's infusing. Mother is on the phone and addresses RN, however; remains on the phone. Introductions were briefly made. Mother shared the her 33 6/7 infant is not latching and she is pumping without pain to protect her milk supply (pumping hand out provided). Resources provided and name written on the communication board for assistance. Mother voiced understanding of the information.
[2023-07-07 20:00] VITALS: BP 119/74; PULSE 61; RESP 18; TEMP 36.5
[2023-07-08] MEDS: IBUPROFEN 600 MG TABLET PO ×2 (00:11→07:34)
[2023-07-08] MEDS: DOCUSATE SODIUM 100 MG CAPSULE PO (07:34)
--- NOTE | 2023-07-08 08:11 | P.PNOB_ITS ---
OB - PN: Subj Subjective Date/time seen: 07/08/23 08:11 Interval history: pp day 1 doing well baby doing great! Patient comments: no complaints, pain well controlled and tolerating diet OB - PN: Obj Data Labs 07/07/23 04:08 OB - PN A/P Plan day: 2 Plan: routine care and discharge home Time Spent With Patient Time: Total time spent is greater than 50% in coordination of care (as documented) at patient's floor/unit and/or counseling patient: Exam Const: General: comfortable and no acute distress Resp: Effort & Inspection: normal respiratory effort Auscultation: no ra les, no rhonchi and no wheezes Cardio: Rate: regular rate Heart sounds: no click, no murmurs and no rubs GI: GI Palp: Yes Soft to palpation and No Tenderness to palpation present (GI) Auscultation: normal bowel sounds Extrem: General: normal to inspection, no pedal edema and no calf tenderness
--- NOTE | 2023-07-08 08:13 | PM.OBDSVD ---
DS: Admitting Diagnosis Discharge Date July 08, 2023 Admitting Diagnosis Term OB - DS: Summary OB Procedures : None OB Procedures Intrapartum: Spontaneous Vag Delivery OB Procedures: : None Peripartum Data Laceration Description: None Episiotomy description: None Time Spent with Patient Time attestation: Total time spent providing and/or coordinating discharge services: DS: Data Data Completed and Pending Pending studies at discharge: Pending at discharge 07/06/23 13:18 Surgical [PTH] Routine Discharge Plan Discharge Discharging Clinician: Pamela Rosales Patient Disposition: Home, Self-Care Activity: pelvic rest Diet: regular Patient Instructions: Antibiotic Form Stand Alone Forms: General Discharge Information Follow-up/Referrals: Pamela Rosales MD [Physician] - Discharge Medications: Continued 28-800 mg-mcg Tablet 1 tablet PO DAILY nitrofurantoin monohyd/m-cryst [Macrobid] 100 mg Capsule 100 mg PO Q12H Qty: 10 0RF Rx Instructions: must administer with a meal/food Date of admission: 07/06/23 03:37 Primary Care Provider: BruceJace Admitting Provider: Pamela Rosales Attending physician on admission: Pamela Rosales Condition: Stable
[2023-07-08 08:15] VITALS: BP 124/81; PULSE 63; RESP 16; TEMP 37; O2SAT 100
--- NOTE | 2023-07-08 13:12 | PC.NURSE ---
Patient viewed the discharge video Mother & Baby Care, The First Two Weeks . Patient was given the opportunity and encouraged to ask questions. Patient verbalized understanding of information shared and has been given the mother/baby guide for home reference.
[2023-07-08] MEDS: MULTIVIT/MIN/PREN/FOL AC/IRON TABLET 1 TAB PO (14:55)
--- NOTE | 2023-07-08 15:00 | PC.NURSE ---
1500 Patient discharged to a No Care Bed , dietary called an updated. Pt given supplies and offered pain medication.
[2023-07-09 15:15] VITALS: BP 136/87; PULSE 58; RESP 18; TEMP 36.9; O2SAT 100
--- NOTE | 2023-07-29 21:40 | PM.OBTRLD ---
OB - Triage/Final Diagnosis Visit Information Comments/Additional reasons for admission: I have assessed the risk for this patient, Edilma Moon, and determined that she would benefit from observation care. Evaluation Laboratory results: Laboratory Tests 07/06/23 07/06/23 07/07/23 05:21 07:08 04:08 WBC 16.9 H RBC 4.41 Hgb 13.1 10.4 L Hct 39.9 32.1 L MCV 90.5 MCH 29.7 MCHC 32.8 RDW 13.4 Plt Count 341 MPV 10.7 H Immature Gran % (Auto) 0.7 H Neut % (Auto) 87.2 H Lymph % (Auto) 6.1 L [place] % (Auto) 5.7 Eos % (Auto) 0.2 Baso % (Auto) 0.1 L Lymph # (Auto) 1.03 [place] # (Auto) 1.0 H Eos # (Auto) 0.0 Baso # (Auto) 0.0 Abs Immat Gran (auto) 0.11 H Absolute Neuts (auto) 14.7 H Absolute Nucleated RBC 0.000 Nucleated RBC % 0.0 RPR Non-reactive Blood Type O Positive Antibody Screen Negative Final Diagnosis (1) labor: Code(s): O60.00 - labor without delivery, unspecified trimester Status: Acute
== END 2023-07-08 15:00 | disposition home or self-care (01) | DRG 805 ==
LOC: ANHOBPP 05:16 → ANHLDR 06:14 → ANHOB2 16:27
PROVIDERS: Advanced Practice Midwife; Admitting Provider Obstetrics & Gynecology; PCP Internal Medicine; Visit Provider Obstetrics & Gynecology
DX: O60.14X0 Preterm labor third trimester with preterm delivery third trimester, not applicable or unspecified (principal); O75.3 Other infection during labor; Z37.0 Single live birth; N39.0 Urinary tract infection, site not specified; O99.214 Obesity complicating childbirth; E66.01 Morbid (severe) obesity due to excess calories; Z3A.33 33 weeks gestation of pregnancy; O99.62 Diseases of the digestive system complicating childbirth; K21.9 Gastro-esophageal reflux disease without esophagitis
CPT/HCPCS: 36415; 81001; 85014; 85018; 85025; 86592; 86850; 86900; 86901; 87086; 87088; 88307; 96372; A9270; G0378; G0379; J0290; J0702; J2590; J2795; J3475; J7120

== ENCOUNTER 2024-01-28 15:29 | Emergency (ER) | payer OTHER, SELFPAY ==
--- NOTE | ~2024-01-28 | US_ITS ---
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 FINDINGS: 6 para 1 Estimated date of delivery by last menstrual period is 09/08/2024 The uterus measures 13 x 4.6 x 8.7 cm. Two gestational sacs are identified within the uterus, primarily to the left of midline. Baby A: cardiac activity is identified at a rate of 167 bpm period A pole is identified with a crown-rump length measuring 16.7 mm corresponding to an approximate gestational age of 8 weeks and 0 days. A yolk sac is present, measuring 2.8 mm. Baby B: cardiac activity is identified at a rate of 148 bpm. A yolk sac is present measuring 3.7 mm. A pole is identified, with a crown-rump length that measures 18.5 mm, corresponding to an appro ximate gestational age of 8 weeks and 2 days. The right ovary measures 5.1 x 2.4 x 3.4 cm. Arterial and venous flow are demonstrated. The left ovary measures 3.2 x 1.4 x 2.5 cm. Arterial and venous flow are demonstrated. Estimated date of delivery by ultrasound is 09/06/2024 IMPRESSION: Twin intrauterine gestation with an approximate gestational age of 8 weeks and 0 days (twin A) and 8 weeks and 2 days (twin B), with cardiac activity identified. Reviewed, dictated and finalized at location A. NG INSPECTOR IMPRESSION: Twin intrauterine gestation with an approximate gestational age of 8 weeks and 0 days (twin A) and 8 weeks and 2 days (twin B), with cardiac activity id entified.
[2024-01-28 15:30] VITALS: BP 133/76; PULSE 82; RESP 18; TEMP 36.3; O2SAT 100
[2024-01-28 17:48] LABS: BEDSIDEPREGUCG Positive (Negative)
[2024-01-28 17:53] LABS: Basophils Percent Auto 0.3 % (0.2-1.2); Eosinophils Percent Auto 0.3 % (0-4.4); Hematocrit 47.6 % (37.0-47.0); Hemoglobin 15.7 g/dL (12.0-15.0); Immature Granulocyte Absolute 0.03 K/mm3 (0.00-0.031); Immature Granulocyte Percent A 0.2 % (0-0.5); Lymphocytes Absolute Auto 2.57 K/mm3 (0.9-3.2); Lymphocytes Percent Auto 21.3 % (18.3-44.2); Mean Corpuscular Hemoglobin 28.6 pg (26-34); Mean Corpuscular Volume 86.7 fl (80-100); Mean Platelet Volume 9.4 fl (7.4-10.4); Monocytes Absolute Auto 0.8 K/mm3 (0.1-0.6); Monocytes Percent Auto 6.2 % (2.6-8.5); Neutrophils Absolute Auto 8.6 K/mm3 (1.3-6.7); Neutrophils Percent Auto 71.7 % (45.5-73.1); Platelet Count Result 364 k/mm3 (150-375); Red Blood Count 5.49 M/mm3 (4.2-5.4); Red Cell Distribution Width 15.4 % (11.5-14.5); White Blood Count 12.1 K/mm3 (4.5-10.0)
[2024-01-28 18:05] LABS: Prothrombin Time 13.2 Seconds (11.1-14.7)
[2024-01-28 18:06] LABS: Partial Thromboplastin Time 27.9 Seconds (22.3-36.8)
[2024-01-28 18:07] LABS: Add Urine Microscopic? YES; Alanine Aminotransferase 27 U/L (6-35); Albumin Level 4.5 g/dL (3.5-5.1); Alkaline Phosphatase 71 U/L (38-126); Anion Gap 11 mmol/L (4-12); Appearance Urine Clear (Clear); Aspartate Amino Transferase 20 U/L (14-36); Bacteria Urine 2+ /hpf; Bilirubin Urine Negative (Negative); Bilirubin,Total 0.6 mg/dL (0.2-1.3); Blood Urea Nitrogen 10 mg/dL (7-17); Blood Urine 2+ (Negative); Calcium 9.5 mg/dL (8.4-10.2); Carbon Dioxide 20 mmol/L (22-30); Chloride 103 mmol/L (98-107); Color Urine Yellow (Yellow); Estimated CRCL calculation 124 ml/min; Estimated Glomerular Filt Rate > 60; Glucose 84 mg/dL (65-110); Glucose Urine UA Negative (Negative); Ketones Urine 1+ mg/dL (Negative); Leukocyte Esterase Ur 1+ LEU/UL (Negative); Need Manual Microscopic Reviewed; Nitrate Urine Negative (Negative); Non Pathogenic Casts 0-2; Potassium 3.7 mmol/L (3.4-5.0); Protein Urine Negative (Negative); Sodium 134 mmol/L (137-145); Specific Grav Ur 1.009 (1.001-1.035); Squamous Epithelial Cell Urine Few /hpf (Few); Urobilinogen Urine 0.2 mg/dL (<2.0)
--- NOTE | 2024-01-28 18:10 | ED.PREGNANCY ---
HPI - General Chief complaint: Vaginal Bleeding Stated complaint: 8 weeks preg, spotting Time Seen by Provider: 01/28/24 16:56 Source: patient Mode of arrival: ambulatory Limitations: no limitations History of Present Illness HPI Narrative: Patient is a 28-year-old female who presents the ED with report of vaginal spotting. Patient is with history of multiple previous miscarriages. She is currently 8 weeks gestation with twins. Has had confirmatory ultrasound. Currently seeing Dr. Rosales. Beta hCG drawn on 01/10 was >00309. Patient reports around 3:00 p.m. this afternoon she use the restroom and noticed some dark red vaginal spotting. She called her OB and was referred to the ED for further evaluation. Patient does still feel that bleeding is ongoing. She denies abdominal cramping. Denies dizziness, lightheadedness, fevers. Related Data Home Medications Medication Instructions Recorded Confirmed vit no.133-ferrous 1 tablet PO DAILY 06/26/23 06/28/23 fumarate 28 mg-folic acid 800 mcg tablet () Allergies Allergy/AdvReac Type Severity Reaction Status Date / Time No Known Allergies Allergy Verified 06/28/23 04:11 Review of Systems Review of Systems: All systems reviewed & are unremarkable except as noted in HPI. All systems reviewed & are unremarkable except as noted in HPI and below PMFSH Past Medical History Medical History Morbid obesity Social History Social History Smoking status: Never smoker Alcohol intake: current Drinks per week: 3 Alcohol use details: WHEN NOT Substance use: never Substance use type: does not use Living arrangements: with family Spiritual care concerns: No Exam Narrative: GENERAL: Well appearing, morbidly obese with BMI of 40.5, non-toxic, in no acute distress. HEAD: Normocephalic, atraumatic. RESPIRATORY: Airway patent, respirations nonlabored. Clear to auscultation bilaterally, no rales, rhonchi, wheezing. CARDIOVASCULAR: Regular rate and rhythm without murmurs, rubs, or gallops. ABDOMINAL: Soft, no significant tenderness throughout abdomen, nondistended. Normoactive BS. MUSCULOSKELETAL: Moves all extremities. No gross deformities. SKIN: Warm, dry, normal color. NEURO: A&O X3. Speech clear. Cranial nerves II-XII grossly intact. Steady gait. No ataxic movements. PSYCHIATRIC: Appropriate mood and affect. Normal interaction. Course Vital Signs Vital signs: Vital Signs Temperature 97.4 F L 01/28/24 15:30 Pulse Rate 82 01/28/24 15:30 Respiratory Rate 18 01/28/24 15:30 Blood Pressure 133/76 01/28/24 15:30 Pulse Oximetry 100 01/28/24 15:30 Oxygen Delivery Room Air 01/28/24 15:30 Temperature 97.6 F 01/28/24 18:24 Pulse Rate 66 01/28/24 18:24 Respiratory Rate 20 01/28/24 18:24 Blood Pressure 144/83 H 01/28/24 18:24 Pulse Oximetry 100 01/28/24 18:24 Oxygen Delivery Room Air 01/28/24 15:30 MDM - OB/Uterine Contractions MDM Narrative Medical decision making narrative: Patient presented to ED with vaginal spotting, currently 8 weeks gestation w/ twins, history of multiple previous miscarriages. . Sees Dr. Rosales. Confirmed IUP. Vital signs are stable upon arrival. Patient is in no acute distress. CBC with minimal leukocytosis of 12.1. Stable H& H. CMP is unremarkable. Urinalysis with some evidence of blood, small amount of white blood cells. Sent for culture. Will Tx given status. Beta quant today >300K. Patient reports beta quant drawn on 01/10 was >09053. Blood type is O+, no indication for rhogam. OB US obtained and thankfully showing live twin gestation, both with good heart tones. No abnormalities noted. No subchorionic hematoma. Discussed case with Dr. Rosales, advised to have patient f/u in office for further eval. No further recs at this time. Patient in agreement with this plan. Given strict return precautions. Discussed pelvic rest, abx for asymptomatic bacteriuria. D/C in stable condition. Medical Records Attestation: I reviewed the patient's medical records. Lab Data Attestation: I reviewed the patient's lab results. 01/28/24 17:44 01/28/24 17:44 Labs: Lab Results 01/28/24 01/28/24 Range/Units 17:44 17:45 WBC 12.1 H (4.5-10.0) K/mm3 RBC 5.49 H (4.2-5.4) M/mm3 Hgb 15.7 H D (12.0-15.0) g/dL Hct 47.6 H (37.0-47.0) % MCV 86.7 (80-100) fl MCH 28.6 (26-34) pg MCHC 33.0 (32-36) g/dl RDW 15.4 H (11.5-14.5) % Plt Count 364 (150-375) k/mm3 MPV 9.4 (7.4-10.4) fl Immature Gran % (Auto) 0.2 (0-0.5) % Neut % (Auto) 71.7 (45.5-73.1) % Lymph % (Auto) 21.3 (18.3-44.2) % [place] % (Auto) 6.2 (2.6-8.5) % Eos % (Auto) 0.3 (0-4.4) % Baso % (Auto) 0.3 (0.2-1.2) % Lymph # (Auto) 2.57 (0.9-3.2) K/mm3 [place] # (Auto) 0.8 H (0.1-0.6) K/mm3 Eos # (Auto) 0.0 (0-0.3) K/mm3 Baso # (Auto) 0.0 (0.0-0.1) K/mm3 Abs Immat Gran (auto) 0.03 (0.00-0.031) K/mm3 Absolute Neuts (auto) 8.6 H (1.3-6.7) K/mm3 Absolute Nucleated RBC 0.000 (0.0-0.012) K/mm3 Nucleated RBC % 0.0 (0.0-0.2) % PT 13.2 (11.1-14.7) Seconds INR 1.0 APTT 27.9 (22.3-36.8) Seconds Sodium 134 L (137-145) mmol/L Potassium 3.7 (3.4-5.0) mmol/L Chloride 103 (98-107) mmol/L Carbon Dioxide 20 L (22-30) mmol/L Anion Gap 11 (4-12) mmol/L BUN 10 (7-17) mg/dL Creatinine 0.60 L (0.7-1.0) mg/dL Estim Creat Clear Calc 124 ml/min Estimated GFR > 60 (59 - ) Glucose 84 (65-110) mg/dL Calcium 9.5 (8.4-10.2) mg/dL Total Bilirubin 0.6 (0.2-1.3) mg/dL AST 20 (14-36) U/L ALT 27 (6-35) U/L Alkaline Phosphatase 71 (38-126) U/L Total Protein 8.0 (6.3-8.2) g/dL Albumin 4.5 (3.5-5.1) g/dL Beta HCG, Quant > 552704.00 mIU/ML Urine Color Yellow (Yellow) Urine Appearance Clear (Clear) Urine pH 6.0 (5.0-9.0) Ur Specific [employer] 1.009 (1.001-1.035) Urine Protein Negative (Negative) mg/dL Urine Glucose (UA) Negative (Negative) mg/dL Urine Ketones 1+ H (Negative) mg/dL Ur Blood (Man) 2+ H (Negative) Urine Nitrate Negative (Negative) Urine Bilirubin Negative (Negative) Urine Urobilinogen 0.2 (<2.0) mg/dL Add Ur Microanalysis Reviewed Leukocyte Esterase Rfl 1+ H (Negative) VIK/UL Urine RBC 3-5 H (0-2) /hpf Urine WBC 6-10 H (0-3) /hpf Ur Squamous Epith Cells Few (Few) /hpf Urine Bacteria 2+ H /hpf Urine Casts 0-2 POC Urine HCG, Qual Positive (Negative) Blood Type O Positive Antibody Screen Negative Screen TNP Baby's Blood Type TNP Baby's ALBERTA Not Reportable Doses of RhIg Required 0 Imaging Data Attestation: I personally reviewed and interpreted this imaging study as follows: Radiologist's impression: ITS Impressions Ultrasound 01/28/24 18:28 IMPRESSION: Twin intrauterine gestation with an approximate gestational age of 8 weeks and 0 days (twin A) and 8 weeks and 2 days (twin B), with cardiac activity identified. Ultrasound 01/28/24 18:28 IMPRESSION: Twin intrauterine gestation with an approximate gestational age of 8 weeks and 0 days (twin A) and 8 weeks and 2 days (twin B), with cardiac activity identified. Discharge Plan Discharge Clinical Impression: Threatened , 8 weeks gestation of , Asymptomatic bacteriuria during Twin gestation in first trimester Qualifiers: Multiple gestation type: unspecified Qualified Code(s): O30.001 - Twin , unspecified number of placenta and unspecified number of amniotic sacs, first trimester Patient Disposition: Home, Self-Care Condition: Stable Instructions: Antibiotic Form, Threatened Miscarriage (ED), Abnormal (Dysfunctional) Uterine Bleeding (ED), at 7 to 10 Weeks (ED) Additional Instructions: Your workup here was reassuring. Continue to monitor bleeding. Recommend pelvic rest until seen by OBGYN, no intercourse, heavy lifting, strenuous activity. Call OBGYN office to make follow up appointment for further evaluation. He was made aware of your ED visit. Return to the ED if you experience worsening or severe bleeding, severe pain, unable to keep down food or drink, fevers, passing out, or any other symptoms of concern. Your urine sample here showed signs of possible infection. Take antibiotics as prescribed. Follow up with OBGYN for urine culture results. Prescriptions: New nitrofurantoin monohyd/m-cryst 100 mg capsule 100 mg PO Q12H 5 Days Qty: 10 0RF Rx Instructions: must administer with a meal/food No Action 28-800 mg-mcg Tablet 1 tablet PO DAILY nitrofurantoin monohyd/m-cryst [Macrobid] 100 mg Capsule 100 mg PO Q12H Qty: 10 0RF Rx Instructions: must administer with a meal/food Follow-up/Referrals: Ralph Rosales MD [Physician] - (OBGYN) UNKNOWN,DOCTOR [Primary Care Provider] - Time of Disposition: 19:26
[2024-01-28 18:24] VITALS: BP 144/83; PULSE 66; RESP 20; TEMP 36.4; O2SAT 100
[2024-01-28 18:49] LABS: Beta HCG Quantitative > 300000.00 mIU/ML
== END 2024-01-28 19:36 | disposition home or self-care (01) ==
PROVIDERS: Emergency Provider Physician Assistant
DX: O20.0 Threatened abortion (principal); Z3A.08 8 weeks gestation of pregnancy; O30.001 Twin pregnancy, unspecified number of placenta and unspecified number of amniotic sacs, first trimester; O28.8 Other abnormal findings on antenatal screening of mother; O99.211 Obesity complicating pregnancy, first trimester; E66.01 Morbid (severe) obesity due to excess calories
CPT/HCPCS: 36415; 76801; 76802; 80053; 81001; 81025; 84702; 85025; 85461; 85610; 85730; 86850; 86900; 86901; 87086; 99284

== ENCOUNTER 2024-07-14 15:49 | Outpatient (RCR) | payer OTHER, SELFPAY ==
[2024-07-14 16:37] VITALS: BP 114/63; PULSE 92
== END 2024-08-14 08:34 | disposition home or self-care (01) ==
LOC: ANHOBOP 15:49
PROVIDERS: Visit Provider Advanced Practice Midwife
DX: Z36.89 Encounter for other specified antenatal screening (principal); O30.003 Twin pregnancy, unspecified number of placenta and unspecified number of amniotic sacs, third trimester; Z3A.32 32 weeks gestation of pregnancy
CPT/HCPCS: 59025

== ENCOUNTER 2024-07-21 12:17 | Outpatient (RCR) | payer OTHER, SELFPAY ==
[2024-07-21] MEDS: BETAMETHASONE SOD PHOS/ACETATE 30 MG/5 ML VIAL 12 MG IM (12:42)
[2024-07-26] MEDS: NIFEdipine 10 MG CAPSULE PO (18:00)
--- OUTSIDE RECORDS SUMMARY | 2024-07-26 19:01 | XMS_ITS | Clinical Summary ---
Author Organization [facility] Address [address] [place] [address] Care Team Providers Care International Coordinator Name Role Phone Jace Barrera MD Primary Care Provider [phone] Allergies No known active allergies Medications cholecalciferol , vitamin D3, 1,000 unit tablet,chewable Take 1 tablet/chew tab by mouth daily Active lrdwuuqt21-oofv --qf-ktt 1.5 mg iron- 8.73 mg-6.4 mg capsule,IR [...] 11/20 Assessment & Plan (01/24/2023 11:17 PM PRECISION STRUCTURAL METAL FITTER): Patient is encouraged to lose weight with a combination of caloric reduction and increased exercise. Various strategies discussed. The long-term risks associated with continued morbid obesity discussed. Fatigue 06/21/2020 Assessment & Plan (10/14/2020 10:56 PM CDT): Increase vitamin-D supplementation and check level in 4 months. B12 and TSH normal Vitamin D deficiency 06/21/2020 Assessment & Plan (01/24/2023 11:17 PM PRECISION STRUCTURAL METAL FITTER): Continue vitamin-D supplementation check level in 1 [...] 10/21/2018 Assessment & Plan (04/18/2019 8:46 AM PRECISION STRUCTURAL METAL FITTER): Currently resolved and restart PPI as needed. Assessment & Plan (10/21/2018 2:45 PM CDT): Increase Ranitidine to 300 mg at bedtime every day. Recommend Tonsillectomy Recurrent tonsillitis 10/04/2018 Assessment & Plan (10/05/2018 3:53 PM CDT): Take Augmentin with a meal, have a Probiotic at a different meal (4 hours in between) [place] screen - call with results Follow up in 4-6 weeks If no improvement, consider Tonsillectomy Good hydration Adequate sleep 7-8 hours Idiopathic scoliosis 04/12/2018 Overview (04/12/2018): 2015 Healthcare maintenance 04/12/2018 Assessment & Plan (01/24/2023 11:16 PM PRECISION STRUCTURAL METAL FITTER): Flu shot each December. Tetanus booster every 10 years. Follow-up the chef de cuisine for breast exam and pelvic exam as [...] needed. Assessment & Plan (04/18/2019 8:46 AM PRECISION STRUCTURAL METAL FITTER): Flu shot each December. Tetanus booster every 10 years. Follow-up with the chef de cuisine for breast exam and pelvic exam as they direct. Diet exercise for weight loss discussed. Will see her back in 1 year for physical and fasting lab sooner if needed. Assessment & Plan (04/12/2018 9:02 AM PRECISION STRUCTURAL METAL FITTER): Flu shot each December. Update her tetanus booster today. She should see her chef de cuisine yearly for breast exam and pelvic exam [...] on file Legal Sex Female 6:13 PM PRECISION STRUCTURAL METAL FITTER Gender Identity Female 01/15/2021 8:48 PM CDT Sexual Orientation Not on file Obstetrics History Para Term AB IAB SAB Ectopic Multiple Livin g Live Births 4 0 0 0 4 0 4 0 0 0 0 Date Outcome GA Total Labor Labor/2nd/3rd Weight Sex Type Anes PTL [place] A1 A5 Name Clin SAB SAB SAB [...] patient's age to complete this topic Insurance [facility] H[facility]PP[facility] Address: [facility] [address] [place] [address] [facility] [employer] PLANS Address: [facility] [id number] [place] [address] [facility] CHOICE PLUS [facility]PPO Address: [place] [address] CHOICE [facility] Address[place] [address] CHO[facility] Address: [facility] [id number] [place] [address] Care Teams International Coordinator Relationship Specialty Start Date End Date Jace Barrera MD [address] [address] PCP - General Internal Medicine 02/01/24
--- OUTSIDE RECORDS SUMMARY | 2024-07-26 19:01 | XMS_ITS | Referral Summary ---
Author Organization [facility] Address [address] [place] [address] Care Team Providers Care Wirer Maintenance Name Role Phone Jace Barrera MD Primary Care Provider [phone] Allergies No known active allergies Medications cholecalciferol , vitamin D3, 1,000 unit tablet,chewable Take 1 tablet/chew tab by mouth daily Active wgoizeus37-lumi -ijetif3-xp-jwo 1.5 mg iron- 8.73 mg-6.4 mg capsule,IR [...] 11/20 Assessment & Plan (01/24/2023 11:17 PM EXTRUDING DEPARTMENT SUPERVISOR): Patient is encouraged to lose weight with a combination of caloric reduction and increased exercise. Various strategies discussed. The long-term risks associated with continued morbid obesity discussed. Fatigue 06/21/2020 Assessment & Plan (10/14/2020 10:56 PM CDT): Increase vitamin-D supplementation and check level in 4 months. B12 and TSH normal Vitamin D deficiency 06/21/2020 Assessment & Plan (01/24/2023 11:17 PM EXTRUDING DEPARTMENT SUPERVISOR): Continue vitamin-D supplementation check level in 1 [...] 10/21/2018 Assessment & Plan (04/18/2019 8:46 AM EXTRUDING DEPARTMENT SUPERVISOR): Currently resolved and restart PPI as needed. Assessment & Plan (10/21/2018 2:45 PM CDT): Increase Ranitidine to 300 mg at bedtime every day. Recommend Tonsillectomy Recurrent tonsillitis 10/04/2018 Assessment & Plan (10/05/2018 3:53 PM CDT): Take Augmentin with a meal, have a Probiotic at a different meal (4 hours in between) Humphreys screen - call with results Follow up in 4-6 weeks If no improvement, consider Tonsillectomy Good hydration Adequate sleep 7-8 hours Idiopathic scoliosis 04/12/2018 Overview (04/12/2018): 2015 Healthcare maintenance 04/12/2018 Assessment & Plan (01/24/2023 11:16 PM EXTRUDING DEPARTMENT SUPERVISOR): Flu shot each December. Tetanus booster every 10 years. Follow-up the fiber glass worker for breast exam and pelvic exam as [...] needed. Assessment & Plan (04/18/2019 8:46 AM EXTRUDING DEPARTMENT SUPERVISOR): Flu shot each December. Tetanus booster every 10 years. Follow-up with the fiber glass worker for breast exam and pelvic exam as they direct. Diet exercise for weight loss discussed. Will see her back in 1 year for physical and fasting lab sooner if needed. Assessment & Plan (04/12/2018 9:02 AM EXTRUDING DEPARTMENT SUPERVISOR): Flu shot each December. Update her tetanus booster today. She should see her fiber glass worker yearly for breast exam and pelvic exam [...] on file Legal Sex Female 6:13 PM EXTRUDING DEPARTMENT SUPERVISOR Gender Identity Female 01/15/2021 8:48 PM CDT [...] Plan of Treatment Not on file Insurance [employer] Address: [facility] [id number] [place] [address] [facility] CHOICE PLUS CHOICE PLUS CHOICE PLUS Care Teams Wirer Maintenance Relationship Specialty Start Date End Date Jace Barrera MD [address] [address] PCP - General Internal Medicine 02/01/24
--- OUTSIDE RECORDS SUMMARY | 2024-07-26 19:01 | XMS_ITS | Clinical Summary ---
Author Organization [facility] Address [address] [place] [address] Phone Care Team Providers Care Grades 7 And 8 Teacher Name Role Phone Unavailable Primary Care Provider Unavailabl e Allergies No known active allergies Medications vits15/iron/fol ic/dss ( VIT 46-KMNX-DBMER-D SS ORAL) Take by mouth. Active aspirin (ECOTRIN EC) 81 mg Tablet, Delayed Release (E.C.) Take 1 Tablet (81 mg) by mouth daily. 60 Tablet 3 03/07/2024 Active indomethacin (INDOCIN) 25 mg capsule Take 1 Capsule (25 mg) by mouth every 4 hours. 6 Capsule 05/05/2024 10:10 AM FRONT OFFICE SUPERVISOR 05/05/2024 Active ferrous fumarate (FERRETTS) 325 mg [...] Description 06/28/2024 11:30 AM CDT Video Visit [facility] Maternal Medicine [address] [place] [address] Sofia Goddard MD Obesity affecting [...] STL ABSTRACTION Provider, Abstract 05/05/2024 8:14 AM FRONT OFFICE SUPERVISOR Anesthesia Event [facility] Labor & [address] [place] [address] Lona Sidhu MD Ojeda, Anne, JOHNNA 05/05/2024 8:00 AM FRONT OFFICE SUPERVISOR - 05/05/2024 9:00 AM FRONT OFFICE SUPERVISOR Surgery [facility] Labor & [address] [place] [address] Rena Dubose MD CERVICAL CERCLAGE 05/04/2024 12:35 PM FRONT OFFICE SUPERVISOR - 05/05/2024 1:09 PM FRONT OFFICE SUPERVISOR Hospital Encounter [facility] Labor & [address] [place] [address] Rena Dubose MD High risk , antepartum Discharge Disposition: Home or Self Care 05/04/2024 11:15 AM FRONT OFFICE SUPERVISOR visit [facility] Maternal and Medicine [place] [address] [facility] [address] [place] [address] Rena Dubose MD High risk , antepartum (Primary Dx); History of delivery; Obesity affecting in second trimester, unspecified obesity type; Short cervix during in second trimester; Dichorionic diamniotic twin in second trimester; 21 weeks gestation of 05/04/2024 10:41 AM FRONT OFFICE SUPERVISOR - 05/04/2024 11:59 PM FRONT OFFICE SUPERVISOR Hospital Encounter [facility] Maternal and Ground Floor [facility] [address] [place] [address] Marcio Crocker MD Discharge Disposition: Home or Self Care 05/04/2024 Travel 04/28/2024 Telephone [facility] Maternal and Ground [facility] [address] [place] [address] Lorrie Hdez RN Question from Last 3 Months Social History Tobacco [...] Sex Assigned at Female 02/07/2024 7:23 PM FRONT OFFICE SUPERVISOR Legal Sex Female 2:26 PM FRONT OFFICE SUPERVISOR Gender Identity Female 02/07/2024 7:23 PM FRONT OFFICE SUPERVISOR Sexual Orientation Not on file Last Filed Vital Signs Vital Sign Reading Time Taken Comments Blood Pressure 112/61 05/05/2024 12:30 PM FRONT OFFICE SUPERVISOR Pulse 88 05/05/2024 11:15 AM FRONT OFFICE SUPERVISOR Temperature 36.6 C (97.9 F) 05/05/2024 12:30 PM FRONT OFFICE SUPERVISOR Respiratory Rate 18 05/05/2024 12:30 PM FRONT OFFICE SUPERVISOR Oxygen Saturation 100% 05/05/2024 11:15 AM FRONT OFFICE SUPERVISOR Inhaled Oxygen Concentration - - Weight 95.7 kg (211 lb) 06/28/2024 11:25 AM CDT Height 152.4 cm (5') 06/28/2024 11:25 AM CDT Body Mass Index 41.21 06/28/2024 11:25 AM CDT Plan of Treatment Upcoming Encounters Date Type Department Care Team (Late st Contact Info) Description 09/08/2024 Hospital Encounter [facility] Labor & [address] [place] [address] Rena Dubose MD [address] [place] [address] Health Maintenance Due Date Last Done Comments [...] Diagnosis Comments TELEMETRY REPORT 05/10/2024 2:20 PM FRONT OFFICE SUPERVISOR LA ANESTHESIA BLOCK PB PLACEHOLDER CHARGE Routine 05/05/2024 8:31 AM FRONT OFFICE SUPERVISOR LA CERCLAGE CERVIX VAGINAL 05/05/2024 8:00 AM FRONT OFFICE SUPERVISOR VERIFICATION BLOOD GROUP Stat 05/04/2024 4:47 PM FRONT OFFICE SUPERVISOR Encounter for blood typing CBC WITHOUT DIFFERENTIAL Stat 05/04/2024 4:47 PM FRONT OFFICE SUPERVISOR GC/CHLAMYDIA, UROGENITAL Routine 05/04/2024 4:47 PM FRONT OFFICE SUPERVISOR VAGINOSIS/VAGINITIS PANEL BASIC Routine 05/04/2024 4:47 PM FRONT OFFICE SUPERVISOR TYPE AND SCREEN Stat 05/04/2024 3:40 PM FRONT OFFICE SUPERVISOR US OB LTD 1 OR MORE FETUS + TV Routine 05/04/2024 11:55 AM FRONT OFFICE SUPERVISOR Cervical incompetence from Last 3 Months Results * TELEMETRY REPORT (05/10/2024 2:20 PM FRONT OFFICE SUPERVISOR) us Provider Scanning ECG ORDERABLES Final Result * LA ANESTHESIA BLOCK PB PLACEHOLDER CHARGE (05/05/2024 8:31 AM FRONT OFFICE SUPERVISOR) Narrative Josie Godfrey CRNA - 05/05/2024 8:31 AM FRONT OFFICE SUPERVISOR Josie Godfery CRNA 05/05/2024 8:33 AM Spinal Block Patient location during procedure: OB Reason for block: primary anesthetic Staffing Performed: BILINGUAL RESEARCH INTERVIEWER/CAA Authorized by: Conor Bob MD Performed by: [...] Spinal needle location: Lumbar. Injection Technique: Single-shot Katherine Identification: palpation technique Number of Attempts: 2 Spinal Needle Needle type: Pencil-tip Needle gauge: 25 G Needle length: 10 cmCSF visualized Assessment Events: easy and well tolerated Conor Bob MD PROCEDURE/MINOR NAKUL GICAL ORDERABLES Final Result * GC/CHLAMYDIA, UROGENITAL (05/04/2024 4:47 PM FRONT OFFICE SUPERVISOR) CHLAMYDIA DNA AMPLIFICATION NOT DETECTED Not Detected 05/04/2024 7:22 PM FRONT OFFICE SUPERVISOR [facility] GC DNA AMPLIFICATION NOT DETECTED Not Detected 05/04/2024 7:22 PM FRONT OFFICE SUPERVISOR [facility] Genital SPECIMEN FROM VAGINA / Unknown Collection / Unknown 05/04/2024 4:47 PM FRONT OFFICE SUPERVISOR 05/04/2024 5:09 PM FRONT OFFICE SUPERVISOR Narrative [facility] SERVICES - [facility] - 05/04/2024 7:22 PM FRONT OFFICE SUPERVISOR Results should not be used for the evaluation of suspected sexual abuse or for other medico-legal indications. The only legally accepted results are from culture. Results cannot be used to assess therapeutic success or failure since nucleic acids may persist following antimicrobial therapy. Rena Dubose MD MICROBIOLOGY - GENERAL ORDERABLE S Final Result Performing Organization Address City/[facility]/ZIP Co de Phone Number [facility]# [id number] [address] [place] [address] * VERIFICATION BLOOD GROUP (05/04/2024 4:47 PM FRONT OFFICE SUPERVISOR) Pathologist [facility] ABO GROUP O 05/04/2024 7:08 PM FRONT OFFICE SUPERVISOR [facility] RH (D) TYPE Positive 05/04/2024 7:08 PM FRONT OFFICE SUPERVISOR [facility] -- [facility] Blood Venipuncture / Unknown 05/04/2024 4:47 PM FRONT OFFICE SUPERVISOR 05/04/2024 4:54 PM FRONT OFFICE SUPERVISOR Magaly Romero MD BLOOD BANK ORDERABLES Final Result Performing Organization Address [facility] Co de Phone Number [facility]# [id number] [facility] [place] [address] * VAGINOSIS/VAGINITIS PANEL BASIC (05/04/2024 4:47 PM FRONT OFFICE SUPERVISOR) Pathologist [facility] TRICHOMONAS VAGINALIS BY PCR Not Detected Not Detected 05/04/2024 6:53 PM FRONT OFFICE SUPERVISOR [facility] - [facility] BACTERIAL VAGINOSIS BY PCR Not Detected Not Detected 05/04/2024 6:53 PM FRONT OFFICE SUPERVISOR [facility] Nakaseomyces glabrata/Pichia kudriavzevii by PCR Not Detected Not Detected 05/04/2024 6:53 PM FRONT OFFICE SUPERVISOR [facility] - [facility] Comment:Nakaseomyces glabrat a formerly Keshia glabrata and Pichia kudriavzevii formerly Keshia krusei KESHIA SPECIES Not Detected Not Detected 05/04/2024 6:53 PM FRONT OFFICE SUPERVISOR [facility]ORAT[facility] Comment:Keshia species incl udes: C albicans, C tropicalis, C parapsilosis and C dubliniensis Genital SPECIMEN FROM VAGINA / Unknown Collection / Unknown 05/04/2024 4:47 PM FRONT OFFICE SUPERVISOR 05/04/2024 5:09 PM FRONT OFFICE SUPERVISOR Fara Butts MD MICROBIOLOGY - GENERAL ORDERA BLES Final Result [facility] CLIA# [id number] [address] [facility] [place] [address] * (ABNORMAL) CBC WITHOUT DIFFERENTIAL (05/04/2024 4:47 PM FRONT OFFICE SUPERVISOR) WBC 13.6(H) 4.0 - 9.8 K/uL 05/04/2024 5:00 PM FRONT OFFICE SUPERVISOR [facility] LABORATORY SERVICES [facility] RBC 4.55 3.90 - 4.90 M/uL 05/04/2024 5:00 PM [facility] LABORATORY SERVICES [facility] HEMOGLOBIN 13.3 11.8 - 14.8 g/dL 05/04/2024 5:00 PM [facility] HEMATOCRIT 40.4 35.5 - 44.0 % 05/04/2024 5:00 PM [facility] LABORATORY [facility] MCV 88.8 82.0 - 99.0 fL 05/04/2024 5:00 PM FRONT OFFICE SUPERVISOR [facility] LABORATORY SERVICES [facility] MCH 29.2 27.2 - 32.6 pg 05/04/2024 5:00 PM FRONT OFFICE SUPERVISOR [facility] LABORATORY SERVICES [facility] MCHC 32.9 31.5 - 35.5 g/dL 05/04/2024 5:00 PM FRONT OFFICE SUPERVISOR [facility] PLATELETS 325 140 - 350 K/uL 05/04/2024 5:00 PM [facility] LABORATORY SERVICES [facility] MPV 9.8 9.3 - 12.4 fL 05/04/2024 5:00 PM FRONT OFFICE SUPERVISOR [facility] LABORATORY SERVICES [facility] RDW 14.6(H) 11.5 - 14.5 % 05/04/2024 5:00 PM FRONT OFFICE SUPERVISOR [facility] RDW-STDEV 47.6 37.1 - 48.7 fL 05/04/2024 5:00 PM [facility] Blood Venipuncture / Unknown 05/04/2024 4:47 PM FRONT OFFICE SUPERVISOR 05/04/2024 4:54 PM FRONT OFFICE SUPERVISOR Fara Butts MD HEMATOLOGY ORDERABLES Final R esult [facility] CLIA# [id number] [address] [place] [address] * TYPE AND SCREEN (05/04/2024 3:40 PM FRONT OFFICE SUPERVISOR) ABO GROUP O 05/04/2024 5:10 PM [facility] RH (D) TYPE Positive 05/04/2024 5:10 PM [facility] ANTIBODY SCREEN Negative 05/04/2024 5:10 PM [facility] Blood Venipuncture / Unknown 05/04/2024 3:40 PM FRONT OFFICE SUPERVISOR 05/04/2024 3:52 PM FRONT OFFICE SUPERVISOR Fara Butts MD BLOOD BANK ORDERABLES Edited Result - Final [facility] CLIA# [id number] [address] [place] [address] * US OB LTD 1 OR MORE FETUS + TV (05/04/2024 11:55 AM FRONT OFFICE SUPERVISOR) Anatomical Region Laterality Modality Pelvis Ultrasound 05/04/2024 11:2 4 AM FRONT OFFICE SUPERVISOR Narrative 05/04/2024 12:45 PM FRONT OFFICE SUPERVISOR STL LIMITED ----- Pat. Name: ENRIQUE MOON Study Date: 05/04/2024 11:24am Pat. NO: [id number] Referring MD: Pamela ANDRADE MD Site: [facility] Medical Assistant Ob Gyn: Ozzie Wu RDMS : 1995 Age: 28 ----- INDICATION ----- Twin , Dichorionic/Diamniotic (Di/Di) History of PTL/PTD in Previous , Currently Maternal Obesity (BMI>40) Complicating CODING ----- Diagnoses Z3A.21: Weeks of gestation O09.212: Supervision of with history of pre-term labor O30.042: Twin , dichorionic/diamniotic Z36.3: Encounter for screening for malformations O99.212: Obesity complicating Procedures 49225: Ultrasound, uterus, real time with image documentation, limited one or more fetuses 15782: Ultrasound, uterus, real time with image documentation [...] and date of were verified by the remote encoding center manager prior to the exam. Jewels sanchez RDMS was present for the transvaginal ultrasound and served as a utility bagger. IMPRESSION ----- 1. Dichorionic Diamniotic twin living [...] Pat. Name:Michael MOON Date:05/04/2024 11:24am Pat. NO: [id number] MD:Pamela ANDRADE [facility] Wu RDMS :1995Age:28 ----- INDICATION ----- Twin , Dichorionic/Diamniotic (Di/Di) History of PTL/PTD in Previous , Currently Maternal Obesity (BMI>40) Complicating CODING ----- Diagnoses Z3A.21: Weeks of gestation O09.212: Supervision of with history ofpre-term labor O30.042: Twin , dichorionic/diamniotic Z36.3: Encounter for screening formalformations O99.212: Obesity complicating Procedures 43482: Ultrasound, uterus, real time withimage documentation, limited one or more fetuses 83209: Ultrasound, uterus, real time withimage documentation HISTORY [...] dating:based on stated JULIO GA by prior [id number] w + 6 d JULIO by prior [...] and date of were verified by the remote encoding center manager prior tothe exam. Jewels sanchez RDMS was [...] Re sult from Last 3 Months Insurance [employer] [id number] Member Subscriber Plan / Payer ( fective 2024-Present) Name:Enrique Moon Relation to Subscriber:Self Name:Enrique Moon Payer ID:[id number] (NAIC) Type:[employer] Address: [facility] [id number] [place] [address] RX [employer] RX Member Subscriber Plan / Payer (Ef fective 2024-Present) Name:Enrique Moon Relation to Subscriber:Not on file Name:Enrique Moon Subscriber ID:Not on file Date of :1995 Payer ID:Not on file Group ID:[id number] Type:RX Commercial Address: [address] [place] Advance Directives For more information, please contact: [phone] * Full Code (Latest Code Status on File) Date Activated Date Inactivated Comments 05/04/2024 4:49 PM 05/05/2024 3:09 PM
--- OUTSIDE RECORDS SUMMARY | 2024-07-26 19:01 | XMS_ITS | Clinical Summary ---
Author Organization [facility] [employer] Address [address] [place] [address] Care Team Providers Care Interactive Digital Media Specialist Name Role Phone Unavailable Primary Care Provider Unavailabl e Source Comments [facility],non-owned Affiliates and Associated Physician Practices is amultiple site organization consisting of ambulatory clinics and hospital sitesin [place], [place], [place] and [place]. This disclosure is being madepursuant to the Care Everywhere program and may not contain all information available regarding this patient. Last updated 17.[facility] [employer] Allergies No known active allergies Medications * [...] and heating? Not hard at all 06/28/2023 [facility] [place] [facility] Occup[facility] ional [facility] - Occupational Stress [...] place to sleep or slept in a group home (including now)? No 06/28/2023 Comments No Sex [...] Group B GREG 07/02/2023 1:07 PM CDT [facility] MICROBIOLOGY Microbiology MISCELLANEOUS SAMPLES / Unknown Collection / Unknown 06/28/2023 5:07 PM CDT 06/28/2023 5:11 PM CDT us Nissa Kebede MD LAB - MICROBIOLOGY ORDERABL ES Final Result [facility] MICROBIOLOGY [address] [place] [address], [facility] [phone] from Last 3 Months or Most Recently Relevant to Health Maintenance Insurance [employer] Member Subscriber Plan / Payer (Ef fective 2022-Present) Name:Enrique Dietz Relation to Subscriber:Self Name:Enrique Dietz Payer ID:[id number] (NAIC) Type:Commercial Address: [place] [id number] [facility] SELF PAY NO INSURANCE Member Subscriber Plan / Payer (Ef fective for All Dates) Name:Enrique Dietz Member ID:Not on file Relation to Subscriber:Not on file Name:ENRIQUE DIETZ Subscriber ID:Not on file Address: [address] Payer ID:Not on file Group ID:Not on file Type:Self Pay Address: [place], [place] SELF PAY NO INSURANCE Member Subscriber Plan / Payer (Ef fective for All Dates) Name:Enrique Dietz Member ID:Not on file Relation to Subscriber:Not on file Name:RUMAJUAN PABLOENRIQUE JIMENEZ Subscriber ID:Not on file Address: [address] [place] [id number] Payer ID:Not on file Group ID:Not on file Type:Self Pay Address: [place], [place] [facility] SELF PAY NO INSURANCE Member Subscriber Plan / Payer (Ef fective for All Dates) Name:Enrique Dietz Member ID:Not on file Relation to Subscriber:Not on file Name:RUMAJUAN PABLOENRIQUE JIMENEZ Subscriber ID:Not on file Address: [address] [place] [id number] Payer ID:Not on file Group ID:Not on file Type:Self Pay Address: [place], [place] Advance Directives * Full Code (Latest Code Status on File) Date Activated Date Inactivated Comments 06/28/2023 3:55 PM 06/30/2023 2:32 PM
== END 2024-08-14 08:33 | disposition home or self-care (01) ==
LOC: ANHOBOP 12:17
PROVIDERS: Visit Provider Advanced Practice Midwife
DX: O36.8990 Maternal care for other specified fetal problems, unspecified trimester, not applicable or unspecified (principal); Z3A.00 Weeks of gestation of pregnancy not specified
CPT/HCPCS: 96372; A9270; J0702

== ENCOUNTER 2024-07-22 11:58 | Outpatient (CLI) | payer OTHER, SELFPAY ==
[2024-07-22] MEDS: BETAMETHASONE SOD PHOS/ACETATE 30 MG/5 ML VIAL 12 MG IM (12:07)
--- OUTSIDE RECORDS SUMMARY | 2024-07-22 16:32 | XMS_ITS | Clinical Summary ---
Author Organization [facility] Address [address] [place] [address] Phone Care Team Providers [employer] Workflow Consultant Name Role Phone Unavailable Primary Care Provider Unavailabl e Allergies No known active allergies Medications vits15/iron/fol ic/dss ( VIT 86-TRKN-NRYNI-D SS ORAL) Take by mouth. Active aspirin (ECOTRIN EC) 81 mg Tablet, Delayed Release (E.C.) Take 1 Tablet (81 mg) by mouth daily. 60 Tablet 3 03/07/2024 Active indomethacin (INDOCIN) 25 mg capsule Take 1 Capsule (25 mg) by mouth every 4 hours. 6 Capsule 05/05/2024 10:10 AM PLATEN PRESS OPERATOR 05/05/2024 Active ferrous fumarate (FERRETTS) 325 mg (106 mg iron) Tablet Take 325 mg by mouth daily. Active ascorbic acid (VITAMIN C ORAL) Take by mouth. Active Active Problems Problem Noted Date Diagnosed Date 22 weeks gestation of 05/05/2024 High risk , antepartum 05/04/2024 History of delivery 05/04/2024 Obesity affecting in second trimester 05/04/2024 Short cervix during in second trimeste r 05/04/2024 Dichorionic diamniotic twin in second trimester 05/04/2024 Estimated Date of Delivery Comme nts Yes 09/08/2024 Date entered eliel or to episode creation Encounters Date Type Department Care Team Description 06/28/2024 11:30 AM CDT Video Visit [facility] Maternal Medicine [address] [place] [address] Sofia Goddard MD Obesity affecting in second trimester, unspecified obesity type (Primary Dx); Supervision of high risk in third trimester; Dichorionic diamniotic twin in second trimester; Short cervix during in second trimester; 29 weeks gestation of 06/28/2024 Travel 06/20/2024 External Device Data ST[facility] ABSTRACTION Provider, Abstract 05/27/2024 External Device Data STL ABSTRACTION Provider, Abstract 05/26/2024 External Device Data STL ABSTRACTION Provider, Abstract 05/23/2024 External Device Data STL ABSTRACTION Provider, Abstract 05/09/2024 External Device Data STL ABSTRACTION Provider, Abstract 05/05/2024 8:14 AM PLATEN PRESS OPERATOR Anesthesia Event [facility] Labor & [address] [place] [address] Lona Sidhu MD Ojeda, Anne, JOHNNA 05/05/2024 8:00 AM PLATEN PRESS OPERATOR - 05/05/2024 9:00 AM PLATEN PRESS OPERATOR Surgery [facility] Labor & [address] [place] [address] Rena Dubose MD CERVICAL CERCLAGE 05/04/2024 12:35 PM PLATEN PRESS OPERATOR - 05/05/2024 1:09 PM PLATEN PRESS OPERATOR Hospital Encounter [facility] Labor & [address] [place] [address] Rena Dubose MD High risk , antepartum Discharge Disposition: Home or Self Care 05/04/2024 11:15 AM PLATEN PRESS OPERATOR visit [facility] Maternal and Medicine [place] [address] [facility] [address] [place] [address] Rena Dubose MD High risk , antepartum (Primary Dx); History of delivery; Obesity affecting in second trimester, unspecified obesity type; Short cervix during in second trimester; Dichorionic diamniotic twin in second trimester; 21 weeks gestation of 05/04/2024 10:41 AM PLATEN PRESS OPERATOR - 05/04/2024 11:59 PM PLATEN PRESS OPERATOR Hospital Encounter [facility] Maternal and Ground Floor [address] [facility] [address] [place] [address] Marcio Crocker MD Discharge Disposition: Home or Self Care 05/04/2024 Travel 04/28/2024 Telephone [facility] Maternal and Ground Floor [address] [facility] [address] [facility] [place] [address] Ketty, Lorrie Rasheed RN Question 04/27/2024 6:56 AM PLATEN PRESS OPERATOR - 04/27/2024 11:59 PM PLATEN PRESS OPERATOR Hospital Encounter [facility] Maternal and Health [facility] [place] [address] [place] [address] Marcio Crocker MD Discharge Disposition: Home or Self Care from Last 3 Months Social History Tobacco Use Types Packs/Day Years Used Date Smoking Tobacco: Never Smokeless Tobacco: Never Tobacco Cessation:Counseling Given: Not Answered Alcohol Use Standard Drinks/Week Comments Not Currently 0 (1 standard drink = 0.6 oz pur e alcohol) Feeling Safe Answer Date Recorded Are you in a relationship wi th someone who hurts you emotionally and/or physically? No 05/04/2024 Food Insecurity Answer Date Recorded Patient needs follow up regardin 07/17/2024 Transportation Needs Answer Date Record ed Patient needs follow up regardin 07/17/2024 Housing Stability Answer Date Recorded Social/Environmental Concerns No concerns Utility Needs Answer Date Recorded Patient needs follow up regardin 07/17/2024 Estimated Date of Delivery Comme nts Yes 09/08/2024 Date entered eliel or to episode creation Sex and Gender Information Value Date Recorded Sex Assigned at Female 02/07/2024 7:23 PM PLATEN PRESS OPERATOR Legal Sex Female 2:26 PM PLATEN PRESS OPERATOR Gender Identity Female 02/07/2024 7:23 PM PLATEN PRESS OPERATOR Sexual Orientation Not on file Last Filed Vital Signs Vital Sign Reading Time Taken Comments Blood Pressure 112/61 05/05/2024 12:30 PM PLATEN PRESS OPERATOR Pulse 88 05/05/2024 11:15 AM PLATEN PRESS OPERATOR Temperature 36.6 C (97.9 F) 05/05/2024 12:30 PM PLATEN PRESS OPERATOR Respiratory Rate 18 05/05/2024 12:30 PM PLATEN PRESS OPERATOR Oxygen Saturation 100% 05/05/2024 11:15 AM PLATEN PRESS OPERATOR Inhaled Oxygen Concentration - - Weight 95.7 kg (211 lb) 06/28/2024 11:25 AM CDT Height 152.4 cm (5') 06/28/2024 11:25 AM CDT Body Mass Index 41.21 06/28/2024 11:25 AM CDT Plan of Treatment Upcoming Encounters Date Type Department Care Team (Late st Contact Info) Description 09/08/2024 Hospital Encounter [facility] Labor & [address] [place] [address] Rena Dubose MD [address] [facility] [address] [place] [address] Health Maintenance Due Date Last Done Comments DTAP/TDAP/TD VACCINES (7 - T d or Tdap) 10/26/2017 10/27/2007, 11/09/2002, 11/09/2002, Additional history exists HPV/Cotest (21-29) 2018 INFLUENZA VACCINE (#1) 2023 , 12/30/2018, 12/16/2017, Additional history exists COVID-19 Vaccine (2023-2 5 season) 2023 08/29/2020 CERVICAL CANCER SCREENING 10/08/2025 PAP SMEAR 10/08/2025 10/08/2022 HEPATITIS B VACCINES Completed 04/22/1998, 1997, 1997 HPV VACCINES Completed 09/14/2011, 12/20, 10/29/2010 RSV VACCINE (60+ or ) (No Doses Required) Completed Procedures Procedure Name Priority Date/Time Associated Diagnosis Comments TELEMETRY REPORT 05/10/2024 2:20 PM PLATEN PRESS OPERATOR IN ANESTHESIA BLOCK PB PLACEHOLDER CHARGE Routine 05/05/2024 8:31 AM PLATEN PRESS OPERATOR IN CERCLAGE CERVIX VAGINAL 05/05/2024 8:00 AM PLATEN PRESS OPERATOR VERIFICATION BLOOD GROUP Stat 05/04/2024 4:47 PM PLATEN PRESS OPERATOR Encounter for blood typing CBC WITHOUT DIFFERENTIAL Stat 05/04/2024 4:47 PM PLATEN PRESS OPERATOR GC/CHLAMYDIA, UROGENITAL Routine 05/04/2024 4:47 PM PLATEN PRESS OPERATOR VAGINOSIS/VAGINITIS PANEL BASIC Routine 05/04/2024 4:47 PM PLATEN PRESS OPERATOR TYPE AND SCREEN Stat 05/04/2024 3:40 PM PLATEN PRESS OPERATOR US OB LTD 1 OR MORE FETUS + TV Routine 05/04/2024 11:55 AM PLATEN PRESS OPERATOR Cervical incompetence US OB LTD 1 OR MORE FETUS + TV Routine 04/27/2024 7:19 AM PLATEN PRESS OPERATOR Cervical incompetence from Last 3 Months Results * TELEMETRY REPORT (05/10/2024 2:20 PM PLATEN PRESS OPERATOR) us Provider Scanning ECG ORDERABLES Final Result * IN ANESTHESIA BLOCK PB PLACEHOLDER CHARGE (05/05/2024 8:31 AM PLATEN PRESS OPERATOR) Narrative Josie Godfrey CRNA - 05/05/2024 8:31 AM PLATEN PRESS OPERATOR Josie Godfrey CRNA 05/05/2024 8:33 AM Spinal Block Patient location during procedure: OB Reason for block: primary anesthetic Staffing Performed: JOHNNA/CAA Authorized by: Conor Bob MD Performed by: Josie Godfrey CRNA Preanesthetic Checklist Completed: patient identified, IV checked, risks and benefits discussed, monitors and equipment checked, pre-op evaluation and timeout performed Spinal Hand hygiene performed prior to procedure Patient was prepped and draped in usual sterile fashion Time out performed Mask worn Patient position: Sitting Prep: ChloraPrep and site prepped and draped Local Anesthetic: Lidocaine 1% without epinephrine Patient monitoring: Continuous pulse oximetry, EKG and Non-invasive blood pressure Approach: Midline Spinal needle location: Lumbar. Injection Technique: Single-shot [place] Identification: palpation technique Number of Attempts: 2 Spinal Needle Needle type: Pencil-tip Needle gauge: 25 G Needle length: 10 cmCSF visualized Assessment Events: easy and well tolerated Conor Bob MD PROCEDURE/MINOR NAKUL GICAL ORDERABLES Final Result * GC/CHLAMYDIA, UROGENITAL (05/04/2024 4:47 PM PLATEN PRESS OPERATOR) [facility] CHLAMYDIA DNA AMPLIFICATION NOT DETECTED Not Detected 05/04/2024 7:22 PM PLATEN PRESS OPERATOR [facility] GC DNA AMPLIFICATION NOT DETECTED Not Detected 05/04/2024 7:22 PM PLATEN PRESS OPERATOR [facility] Genital SPECIMEN FROM VAGINA / Unknown Collection / Unknown 05/04/2024 4:47 PM PLATEN PRESS OPERATOR 05/04/2024 5:09 PM PLATEN PRESS OPERATOR Narrative [facility] - 05/04/2024 7:22 PM PLATEN PRESS OPERATOR Results should not be used for the evaluation of suspected sexual abuse or for other medico-legal indications. The only legally accepted results are from culture. Results cannot be used to assess therapeutic success or failure since nucleic acids may persist following antimicrobial therapy. Rena Dubose MD MICROBIOLOGY - GENERAL ORDERABLE S Final Result Performing Organization Address City/[facility]/ZIP Co de Phone Number [facility]# [id number] [address] [place] [address] * VERIFICATION BLOOD GROUP (05/04/2024 4:47 PM PLATEN PRESS OPERATOR) [facility] ABO GROUP O 05/04/2024 7:08 PM PLATEN PRESS OPERATOR [facility] RH (D) TYPE Positive 05/04/2024 7:08 PM PLATEN PRESS OPERATOR [facility] Blood Venipuncture / Unknown 05/04/2024 4:47 PM PLATEN PRESS OPERATOR 05/04/2024 4:54 PM PLATEN PRESS OPERATOR us Magaly Romero MD BLOOD BANK ORDERABLES Final Result [facility]# [id number] [address] [place] [address] * VAGINOSIS/VAGINITIS PANEL BASIC (05/04/2024 4:47 PM PLATEN PRESS OPERATOR) [facility] TRICHOMONAS VAGINALIS BY PCR Not Detected Not Detected 05/04/2024 6:53 PM PLATEN PRESS OPERATOR [facility] BACTERIAL VAGINOSIS BY PCR Not Detected Not Detected 05/04/2024 6:53 PM PLATEN PRESS OPERATOR [facility] Nakaseomyces glabrata/Pichia kudriavzevii by PCR Not Detected Not Detected 05/04/2024 6:53 PM PLATEN PRESS OPERATOR [facility] Comment:Nakaseomyces glabrat a formerly Keshia glabrata and Pichia kudriavzevii formerly Keshia krusei KESHIA SPECIES Not Detected Not Detected 05/04/2024 6:53 PM PLATEN PRESS OPERATOR [facility] Comment:Keshia species incl udes: C albicans, C tropicalis, C parapsilosis and C dubliniensis Genital SPECIMEN FROM VAGINA / Unknown Collection / Unknown 05/04/2024 4:47 PM PLATEN PRESS OPERATOR 05/04/2024 5:09 PM PLATEN PRESS OPERATOR Fara Butts MD MICROBIOLOGY - GENERAL ORDERA BLES Final Result [facility]# [id number] [address] [place] [address] * (ABNORMAL) CBC WITHOUT DIFFERENTIAL (05/04/2024 4:47 PM PLATEN PRESS OPERATOR) [facility] WBC 13.6(H) 4.0 - 9.8 K/uL 05/04/2024 5:00 PM [facility] RBC 4.55 3.90 - 4.90 M/uL 05/04/2024 5:00 PM [facility] HEMOGLOBIN 13.3 11.8 - 14.8 g/dL 05/04/2024 5:00 PM [facility] HEMATOCRIT 40.4 35.5 - 44.0 % 05/04/2024 5:00 PM [facility] MCV 88.8 82.0 - 99.0 fL 05/04/2024 5:00 PM [facility] MCH 29.2 27.2 - 32.6 pg 05/04/2024 5:00 PM [facility]OR[facility]ORY SERVICES - . [facility] MCHC 32.9 31.5 - 35.5 g/dL 05/04/2024 5:00 PM [facility] SERVICES - . [place] 325 140 - 350 K/uL 05/04/2024 5:00 PM [facility] - [place] MPV 9.8 9.3 - 12.4 fL 05/04/2024 5:00 PM [facility] - [place] RDW 14.6(H) 11.5 - 14.5 % 05/04/2024 5:00 PM [facility]ORATORY SERVICES - . [facility] RDW-STDEV 47.6 37.1 - 48.7 fL 05/04/2024 5:00 PM [facility] LABORATORY SERVICES - [facility] Blood Venipuncture / Unknown 05/04/2024 4:47 PM PLATEN PRESS OPERATOR 05/04/2024 4:54 PM PLATEN PRESS OPERATOR Fara Butts MD HEMATOLOGY ORDERABLES Final R esult [facility] [place] [facility] - [facility] CLIA# [id number] [address] [place] [address] * TYPE AND SCREEN (05/04/2024 3:40 PM PLATEN PRESS OPERATOR) ABO GROUP O 05/04/2024 5:10 PM PLATEN PRESS OPERATOR [facility] SERVICES -- [facility] RH (D) TYPE Positive 05/04/2024 5:10 PM PLATEN PRESS OPERATOR [facility] SERVICES -- .[facility] ANTIBODY SCREEN Negative 05/04/2024 5:10 PM PLATEN PRESS OPERATOR [facility] SERVICES -- .[facility] Blood Venipuncture / Unknown 05/04/2024 3:40 PM PLATEN PRESS OPERATOR 05/04/2024 3:52 PM PLATEN PRESS OPERATOR Result [facility] Fara Butts MD BLOOD BANK ORDERABLES Edited Result - Final [facility] SERVICES -- [facility] CLIA# [id number] [address] [place] [address] * US OB LTD 1 OR MORE FETUS + TV (05/04/2024 11:55 AM PLATEN PRESS OPERATOR) Only the most recent of2 resultswithin the time period is included. Anatomical Region Laterality Modality Pelvis Ultrasound 05/04/2024 11:2 4 AM PLATEN PRESS OPERATOR Narrative 05/04/2024 12:45 PM PLATEN PRESS OPERATOR ST[facility] LIMITED ----- Pat. Name: ENRIQUE MOON Study Date: 05/04/2024 11:24am Pat. NO: [id number] Referring MD: Pamela ANDRADE MD Site: [facility] Worker: Ozzie Wu RDMS : 1995 Age: 28 ----- INDICATION ----- Twin , Dichorionic/Diamniotic (Di/Di) History of PTL/PTD in Previous , Currently Maternal Obesity (BMI>40) Complicating CODING ----- Diagnoses Z3A.21: Weeks of gestation O09.212: Supervision of with history of pre-term labor O30.042: Twin , dichorionic/diamniotic Z36.3: Encounter for screening for malformations O99.212: Obesity complicating Procedures 78854: Ultrasound, uterus, real time with image documentation, limited one or more fetuses 06046: Ultrasound, uterus, real time with image documentation HISTORY ----- OB History 6. Para 1 L1 MATERNAL ASSESSMENT ----- Physical Exam Weight 100 kg. Initial weight 100 kg, 220 lb. BMI 42.97 kg/m . Initial BMI 42.97 kg/m . Weight gain 0 kg, 0 lb METHOD ----- Transabdominal and transvaginal ultrasound examination ----- Twin . Number of fetuses: 2. Dichorionic-diamniotic DATING ----- Cycle: regular cycle Method of dating: based on stated JULIO GA by prior assessment 21 w + 6 d JULIO by prior assessment: 09/08/2024 Assigned: based on stated JULIO, selected on 05/04/2024 Assigned GA 21 w + 6 d Assigned JULIO: 09/08/2024 Fetus 1: GENERAL EVALUATION ----- Cardiac activity present. FHR 148 bpm. movements: present. Presentation: breech right Placenta: Placental site: posterior Umbilical cord: Cord vessels: 3 vessel cord. Amniotic fluid: Amount of AF: normal amount. MVP 3.3 cm Fetus 2: GENERAL EVALUATION ----- Cardiac activity present. FHR 149 bpm. movements: present. Presentation: breech left Placenta: Placental site: anterior Umbilical cord: Cord vessels: 3 vessel cord. Insertion site: normal insertion Amniotic fluid: MVP 2.8 cm Fetus 1: ANATOMY ----- The following structures appear normal: Heart / Thorax Cardiac rhythm. Abdomen Stomach. Bladder. sex: male. Fetus 2: ANATOMY ----- sex: female. MATERNAL STRUCTURES ----- Cervix Normal Approach - Transvaginal: Cervical length 12.8 mm Fetus 1: GROWTH OVERVIEW ----- Exam date GA BPD (mm) HC (mm) AC (mm) FL (mm) HL (mm) EFW (g) 03/30/2024 16w 6d 37.3 74% 142.0 73% 116.5 69% 22.6 42% 24.9 86% 183 62% 04/20/2024 19w 6d 47.5 71% 182.4 77% 155.4 73% 31.1 35% 31.7 79% 343 68% Fetus 2: GROWTH OVERVIEW ----- Exam date GA BPD (mm) HC (mm) AC (mm) FL (mm) HL (mm) EFW (g) 03/30/2024 16w 6d 37.1 72% 137.8 57% 111.3 54% 22.2 37% 22.4 59% 172 43% 04/20/2024 19w 6d 48.1 77% 177.2 59% 147.1 49% 32.3 50% 30.7 66% 330 57% COMMENT ----- Patient's name and date of were verified by the technical operator prior to the exam. Jewels sanchez RDMS was present for the transvaginal ultrasound and served as a triple valve mechanic. IMPRESSION ----- 1. Dichorionic Diamniotic twin living fetuses with a gestational age of 21w 6d based on the reported clinical dates. 2. Limited anatomy appears grossly unremarkable. 3. Cervical length is 12.8 mm, which is SHORT for gestational age, with a U- shaped funnel and debris noted at the level of the internal os. 4. Amniotic fluid volume is normal for gestational age. Comments: I had the pleasure of seeing your patient in follow-up for the above mentioned indications. We reviewed the overall sonographic findings and the limitations associated with ultrasound evaluations Recommendations: - See MFM consult. Thank you for allowing us to participate in the care of this patient. Procedure Note Rena Dubose MD - 05/04/2024 STL LIMITED ----- Pat. Name:Michael MOON Date:05/04/2024 11:24am Pat. NO: [id number] MD:Pamela ANDRADE [facility]Ozzie Wu RDMS :1995Age:28 ----- INDICATION ----- Twin , Dichorionic/Diamniotic (Di/Di) History of PTL/PTD in Previous , Currently Maternal Obesity (BMI>40) Complicating CODING ----- Diagnoses Z3A.21: Weeks of gestation O09.212: Supervision of with history ofpre-term labor O30.042: Twin , dichorionic/diamniotic Z36.3: Encounter for screening formalformations O99.212: Obesity complicating Procedures 29478: Ultrasound, uterus, real time withimage documentation, limited one or more fetuses 74532: Ultrasound, uterus, real time withimage documentation HISTORY ----- OB History 6. Para 1 L1 MATERNAL ASSESSMENT ----- Physical Exam Weight 100 kg. Initial weight 100 kg, 220 lb. BMI42.97 kg/m . Initial BMI 42.97 kg/m . Weight gain 0 kg, 0 lb METHOD ----- Transabdominal and transvaginal ultrasound examination ----- Twin . Number of fetuses: 2. Dichorionic-diamniotic DATING ----- Cycle:regular cycle Method of dating:based on stated JULIO GA by prior [id number] w + 6 d JULIO by prior assessment:09/08/2024 Assigned:based on stated JULIO, selected on 05/04/2024 Assigned GA21 w + 6 d Assigned JULIO:09/08/2024 Fetus 1: GENERAL EVALUATION ----- Cardiac activity present. FHR 148 bpm. movements: present.Presentation: breech right Placenta: Placental site: posterior Umbilical cord: Cord vessels: 3 vessel cord. Amniotic fluid: Amount of AF: normal amount. MVP 3.3 cm Fetus 2: GENERAL EVALUATION ----- Cardiac activity present. FHR 149 bpm. movements: present.Presentation: breech left Placenta: Placental site: anterior Umbilical cord: Cord vessels: 3 vessel cord. Insertion site: normalinsertion Amniotic fluid: MVP 2.8 cm Fetus 1: ANATOMY ----- The following structures appear normal: Heart / Thorax Cardiac rhythm. Abdomen Stomach. Bladder. sex: male. Fetus 2: ANATOMY ----- sex: female. MATERNAL STRUCTURES ----- Cervix Normal Approach - Transvaginal: Cervical length 12.8 mm Fetus 1: GROWTH OVERVIEW ----- Exam date GA BPD (mm) HC (mm) AC (mm) FL(mm) HL (mm) EFW (g) 03/30/2024 16w 6d 37.3 74% 142.0 73% 116.5 69%22.6 42% 24.9 86% 183 62% 04/20/2024 19w 6d 47.5 71% 182.4 77% 155.4 73%31.1 35% 31.7 79% 343 68% Fetus 2: GROWTH OVERVIEW ----- Exam date GA BPD (mm) HC (mm) AC (mm) FL(mm) HL (mm) EFW (g) 03/30/2024 16w 6d 37.1 72% 137.8 57% 111.3 54%22.2 37% 22.4 59% 172 43% 04/20/2024 19w 6d 48.1 77% 177.2 59% 147.1 49%32.3 50% 30.7 66% 330 57% COMMENT ----- Patient's name and date of were verified by the technical operator prior tothe exam. Jewels sanchez RDMS was present for the transvaginal ultrasound and served as achaperone. IMPRESSION ----- 1. Dichorionic Diamniotic twin living fetuses with a gestational age of21w 6d based on the reported clinical dates. 2. Limited anatomy appears grossly unremarkable. 3. Cervical length is 12.8 mm, which is SHORT for gestational age, with aU- shaped funnel and debris noted at the level of the internal os. 4. Amniotic fluid volume is normal for gestational age. Comments: I had the pleasure of seeing your patient in follow-up for theabove mentioned indications. We reviewed the overall sonographic findings and the limitations associated with ultrasoundevaluations Recommendations: - See MFM consult. Thank you for allowing us to participate in the care of this patient. us Marcio Crocker MD ORDERABLES Final Re sult from Last 3 Months Insurance [employer] [facility] [id number] RX [employer] Member Subscriber Plan / Payer (Ef fective 2024-Present) Name:Enrique Moon Relation to Subscriber:Not on file Name:Enrique Moon Subscriber ID:Not on file Date of :1995 Payer ID:Not on file Group ID:[id number] Type:RX Commercial Address: [address] [place] Advance Directives For more information, please contact: [phone] * Full Code (Latest Code Status on File) Date Activated Date Inactivated Comments 05/04/2024 4:49 PM 05/05/2024 3:09 PM
--- OUTSIDE RECORDS SUMMARY | 2024-07-22 16:32 | XMS_ITS | Clinical Summary ---
Author Organization [facility] Address [address] [place] [address] Care Team Providers Care Medical Doctor Name Role Phone Jace Barrera MD Primary Care Provider [phone] Allergies No known active allergies Medications cholecalciferol , vitamin D3, 1,000 unit tablet,chewable Take 1 tablet/chew tab by mouth daily Active hxdvqahy10-zgtz -jtekrq5-lz-qqj 1.5 mg iron- 8.73 mg-6.4 mg capsule,IR & delay rel,biphase 2 Active fluticasone propionate (FLONASE) 50 mcg/actuation nasal spray Administer 2 sprays into each nostril daily 16 g 5 2 Active azithromycin (ZITHROMAX) 250 mg tablet Take 2 tabs (500 mg) by mouth today, than 1 tab (250 mg) daily for 4 days. 6 tablet 4 Active Active Problems Problem Noted Date Diagnosed Date Morbid obesity with BMI of 40.0-44.9, adult 11/20 Assessment & Plan (01/24/2023 11:17 PM RANGE MOUNTER): Patient is encouraged to lose weight with a combination of caloric reduction and increased exercise. Various strategies discussed. The long-term risks associated with continued morbid obesity discussed. Fatigue 06/21/2020 Assessment & Plan (10/14/2020 10:56 PM CDT): Increase vitamin-D supplementation and check level in 4 months. B12 and TSH normal Vitamin D deficiency 06/21/2020 Assessment & Plan (01/24/2023 11:17 PM RANGE MOUNTER): Continue vitamin-D supplementation check level in 1 year Assessment & Plan (06/27/2021 4:52 PM CDT): Continue current supplementation and check level in 1 year. Assessment & Plan (10/14/2020 10:55 PM CDT): Repeat level in 4 months after supplementation. Call back for results. Allergic rhinitis 06/21/2020 Tonsillar hypertrophy 10/21/2018 Assessment & Plan (12/23/2018 10:12 AM CDT): Continue the increased fluid intake Slowly advance diet Continue medication at bedtime Assessment & Plan (10/21/2018 2:47 PM CDT): Increase Ranitidine to 300 mg at bedtime every day. Recommend Tonsillectomy due to assymmetric tonsillar enlargement - Discussed risks, benefits, and alternatives. Reviewed risks, including anesthesia, pain, bleeding, injury to lips, teeth, gums and tongue, dehydration, scarring, velopharyngeal insufficiency, voice changes, regrowth of tissue. - Reviewed postoperative care: 1-2 weeks off school/daycare, and 2 weeks of light activity and soft diet, with emphasis on fluid hydration, red or purple coloring, straws and dairy are fine to drink. - informational paperwork, including description of surgery, risks, and postop care provided All questions were answered and she would like to proceed. Laryngopharyngeal reflux (LPR) 10/21/2018 Assessment & Plan (04/18/2019 8:46 AM RANGE MOUNTER): Currently resolved and restart PPI as needed. Assessment & Plan (10/21/2018 2:45 PM CDT): Increase Ranitidine to 300 mg at bedtime every day. Recommend Tonsillectomy Recurrent tonsillitis 10/04/2018 Assessment & Plan (10/05/2018 3:53 PM CDT): Take Augmentin with a meal, have a Probiotic at a different meal (4 hours in between) [place] screen - call with results Follow up in 4-6 weeks If no improvement, consider Tonsillectomy Good hydration Adequate sleep 7-8 hours Idiopathic scoliosis 04/12/2018 Overview (04/12/2018): 2015 Healthcare maintenance 04/12/2018 Assessment & Plan (01/24/2023 11:16 PM RANGE MOUNTER): Flu shot each December. Tetanus booster every 10 years. Follow-up the service delivery supervisor for breast exam and pelvic exam as they direct. Will see her back in 1 year for physical fasting lab sooner if needed. Assessment & Plan (06/27/2021 4:52 PM CDT): Flu shot each December. Tetanus booster every 10 years. COVID vaccine completed. Will see her back in 1 year for physical fasting lab sooner if needed. Assessment & Plan (10/14/2020 10:55 PM CDT): Flu shot each December. Tetanus booster every 10 years. COVID vaccine recommended. Diet exercise for weight loss discussed. Will see her back in 1 year for physical and lab sooner if needed. Assessment & Plan (04/18/2019 8:46 AM RANGE MOUNTER): Flu shot each December. Tetanus booster every 10 years. Follow-up with the service delivery supervisor for breast exam and pelvic exam as they direct. Diet exercise for weight loss discussed. Will see her back in 1 year for physical and fasting lab sooner if needed. Assessment & Plan (04/12/2018 9:02 AM RANGE MOUNTER): Flu shot each December. Update her tetanus booster today. She should see her service delivery supervisor yearly for breast exam and pelvic exam as they direct. Will plan on seeing her back in 1 year for physical without lab sooner if needed. Immunizations Immunization Administration Dates Next Due DTP 11/09/2002, 9,04/22/1998,02/21,1997 DTaP 11/09/2002, 9,04/22/1998,02/21,1997 HPV, Unspecified 09/14/2011,01/07/2011, 1 Hep A, Pediatric 10/27/2007,04/01/2007 Hep A, Unspecified 10/27/2007,04/01/2007 Hep B, Adolescent or Pediatric 04/22/1998,1997,1997 Hep B, Unspecified 04/22/1998,1997, 998 HiB 01/20/1999, 9,02/21/1998,12/20 IPV 11/09/2002, 9,02/21/1998,12/20 Influenza LAIV (Nasal) 03/27/2014 Influenza Nasal, Unspecified 03/27/2014,12/07/19 13,12/11/2011 Influenza, Live, Intranasal, Quadrivalent 12/26/2014,03/27/2014,12/06/2012 Influenza, Quadrivalent, Spl it, Preservative Free, Intramuscular 12/05/2020,12/30/2018,12/16/2017,02/19 Influenza, Unspecified 12/03/2021,2019,01/07/2011,05/14,04/01/2007 MMR 11/09/2002,11/05/1998 Meningococcal MCV4, Unspecified 10/23/2013,10/29 Meningococcal MCV4P (Menactra) 10/23/2013 Pfizer SARS-CoV-2 Monovalent Vaccination (12+ Yrs) PURPLE 08/29/2020 Polio, Unspecified 11/09/2002, 9,02/21/1998,12/20 Td, adsorbed 04/12/2018 Tdap 10/27/2007 Varicella 04/01/2007,11/05/1998 Surgical History Surgery Date Site/Laterality Comments TONSILLECTOMY 12/14/2018 Bilateral DILATION AND CURETTAGE OF UTERUS 03/22/2022 - 03/21/2023 Medical History Medical History Date Comments Tonsillitis recurrent Genital ulcer, female Kidney stone GERD (gastroesophageal reflux disease) Family History Medical History Relation Name Comments Dwarfism Brother Obesity Brother Hyperlipidemia Father Cali Spaulding Jr Hypertension Father Cali Spaulding Jr Diabetes Maternal Grandmother Diabetes Mother Fara Spaulding Obesity Mother Fara Spaulding Relation Name Status Comments Brother Father Cali Spaulding Jr Maternal Grandmother Mother Fara Spaulding Social History Tobacco Use Types Packs/Day Years Used Date Smoking Tobacco: Never Smokeless Tobacco: Never Tobacco Cessation:Counseling Given: Not Answered Alcohol Use Standard Drinks/Week Comments Yes 0 (1 standard drink = 0.6 oz pur e alcohol) 2-3 occasionally PHQ-2 Answer Date Recorded PHQ-2 Total Score (If total score is 3 or more points, staff should administer the PHQ-9) 0 12/01/2022 Comments No Sex and Gender Information Value Date Recorded Sex Assigned at Not on file Legal Sex Female 6:13 PM RANGE MOUNTER Gender Identity Female 01/15/2021 8:48 PM CDT Sexual Orientation Not on file Obstetrics History Para Term AB IAB SAB Ectopic Multiple Livin g Live Births 4 0 0 0 4 0 4 0 0 0 0 Date Outcome GA Total Labor Labor/2nd/3rd Weight Sex Type Anes PTL [place] A1 A5 Name Clin SAB SAB SAB SAB SAB SAB 021 SAB 6w0d SAB Last Filed Vital Signs Vital Sign Reading Time Taken Comments Blood Pressure 123/85 01/12/2024 2:01 PM CDT Pulse 60 01/12/2024 2:01 PM CDT Temperature 36.8 C (98.2 F) 01/12/2024 2:01 PM CDT Respiratory Rate 16 01/12/2024 2:01 PM CDT Oxygen Saturation 93% 01/12/2024 2:01 PM CDT Inhaled Oxygen Concentration - - Weight 97.5 kg (215 lb) 01/12/2024 2:01 PM CDT Height 152.4 cm (5') 01/12/2024 2:01 PM CDT Body Mass Index 41.99 01/12/2024 2:01 PM CDT Plan of Treatment Health Maintenance Due Date Last Done Comments Cervical Cancer Screening 1997 Hepatitis C Screening 1997 Covid-19 Vaccine ( season) 2023 03/19/2021, 08/29/2020, 08/08/2020 Depression Screening 12/02/2023 12/01/2022, 06/27/2021, 06/21/2020, Additional history exists Regular Well Visit/Exam 18-64 12/02/2023 12/01/2022, 06/27/2021, 06/21/2020, Additional history exists DTaP/Tdap/Td Vaccine (8 - Td or Tdap) 04/12/2028 04/12/2018, 10/27/2007, 11/09/2002, Additional history exists Hepatitis B Screening Completed 04/22/1998 , 04/22/1998, 1997, Additional history exists Varicella Vaccines Completed 04/01/2007, 11/05/1998 HPV Vaccines Completed 09/14/2011, 12/20, 10/29/2010 Influenza Vaccine Completed 12/21/2023, , 12/07/2022, Additional history exists Pneumococcal vaccine <65 Aged Out No longer eligible based on patient's age to complete this topic Insurance [facility] Address: [facility] [address] [place] [address] [employer] [facility] EM[employer]EE [employer] PLANS Address: [facility] [address] [place] [address] [facility] CHOICE PLUS [facility] Address: [place] [address] CHOICE PLUS [facility] [place] [address] CHOICE PLUS [facility] Address: [facility] [id number] [place] [address] Care Teams Medical Doctor Relationship Specialty Start Date End Date Jace Barrera MD [address] [address] PCP - General Internal Medicine 02/01/24
--- OUTSIDE RECORDS SUMMARY | 2024-07-22 16:32 | XMS_ITS | Clinical Summary ---
Author Organization [facility] [employer] Address [address] [place] [address] Care Team Providers Care Electronic News Gathering Editor Name Role Phone Unavailable Primary Care Provider Unavailabl e Source Comments [facility],non-owned Affiliates and Associated Physician Practices is amultiple site organization consisting of ambulatory clinics and hospital sitesin [place], [place], [place] and [place]. This disclosure is being madepursuant to the Care Everywhere program and may not contain all information available regarding this patient. Last updated 17.[facility] [employer] Allergies No known active allergies Medications * Be aware that medications may not be up to date on this document. Alwaysverify current medications with the patient. NIFEdipine (Procardia) 20 MG capsule Take 1 (one) capsule by mouth 3 times daily Active Active Problems Problem Noted Date Diagnosed Date Vaginal bleeding 06/28/2023 Social History Tobacco Use Types Packs/Day Years Used Date Smoking Tobacco: Never Passive Smoke Exposure: Never Smokeless Tobacco: Never Tobacco Cessation:Counseling Given: Not Answered Alcohol Use Standard Drinks/Week Comments Not Currently 0 (1 standard drink = 0.6 oz pur e alcohol) Overall Financial Resource Strain (CARDIA) Answe r Date Recorded How hard is it for you to pa y for the very basics like food, housing, medical care, and heating? Not hard at all 06/28/2023 [facility] - Occupational Stress Questionnaire Answer Date Recorded Do you feel stress - tense, restless, nervous, or anxious, or unable to sleep at night because your mind is troubled all the time - these days? Not at all 06/28/2023 Hunger Vital Sign Answer Date Recorded Within the past 12 months, y ou worried that your food would run out before you got the money to buy more. Never true 06/28/19 24 Within the past 12 months, t he food you bought just didn't last and you didn't have money to get more. Never true 06/28/2023 PRAPARE - Transportation Answer Date Re corded In the past 12 months, has l ack of transportation kept you from medical appointments or from getting medications? No 10/2023 In the past 12 months, has l ack of transportation kept you from meetings, work, or from getting things needed for daily living? No 06/28/2023 Housing Stability Vital Sign Answer Juan Manuel e Recorded In the last 12 months, was t here a time when you were not able to pay the mortgage or rent on time? No 06/28/2023 In the last 12 months, how many places have you lived? 1 06/28/2023 In the last 12 months, was t here a time when you did not have a steady place to sleep or slept in a mcc (including now)? No 06/28/2023 Comments No Sex and Gender Information Value Date Recorded Sex Assigned at Not on file Legal Sex Female 7:08 AM CDT Gender Identity Not on file Sexual Orientation Not on file Last Filed Vital Signs Vital Sign Reading Time Taken Comments Blood Pressure 122/81 06/30/2023 9:15 AM CDT Pulse 85 06/30/2023 9:15 AM CDT Temperature 36.8 C (98.2 F) 06/30/2023 9:15 AM CDT Respiratory Rate 16 06/30/2023 9:15 AM CDT Oxygen Saturation 97% 06/30/2023 9:15 AM CDT Inhaled Oxygen Concentration - - Weight 96.2 kg (212 lb) 06/28/2023 1:10 PM CDT Height 152.4 cm (5') 06/28/2023 1:10 PM CDT Body Mass Index 41.4 06/28/2023 1:10 PM CDT Plan of Treatment Health Maintenance Due Date Last Done Comments PAP SMEAR 1997 HPV VACCINE (1 - 3-dose series) 2012 HEPATITIS C SCREENING 10/16/2015 DTAP/TDAP/TD VACCINES (1 - Tdap) 2016 HEPATITIS B VACCINE (1 of 3 - 19+ 3-dose series) 2016 COVID-19 VACCINE ( season) 2023 03/19/2021, 08/29/2020, 08/08/2020 DEPRESSION SCREENING 03/22/2024 INFLUENZA VACCINE (Season Ended) 2024 12/07/2022, 12/03/2021, 12/05/2020, Additional history exists ZOSTER VACCINE (1 of 2) 10/21/2047 HIV SCREENING Completed 05/26/2023, 02/10/2023 HIB VACCINE Aged Out No longer eligi ble based on patient's age to complete this topic MENINGOCOCCAL (Group B) VACCINE SHARED DECISION-MAKING Aged Out No longer eligible based on patient's age to complete this topic MENINGOCOCCAL GROUPS A/C/Y/W VACCINE Aged Out No longer eligible based on patient's age to complete this topic PNEUMOCOCCAL VACCINE Aged Out No long er eligible based on patient's age to complete this topic Procedures Procedure Name Priority Date/Time Associated Diagnosis Comments CULTURE STREP B Routine 06/28/2023 5:07 PM CDT Vaginal bleeding from Last 3 Months or Most Recently Relevant to Health Maintenance Results * CULTURE STREP B (06/28/2023 5:07 PM CDT) Culture Strep B Negative for beta-hemolytic Streptococcus Group B GREG 07/02/2023 1:07 PM CDT [facility]CRO[facility] Microbiology MISCELLANEOUS SAMPLES / Unknown Collection / Unknown 06/28/2023 5:07 PM CDT 06/28/2023 5:11 PM CDT us Nissa Kebede MD LAB - MICROBIOLOGY ORDERABL ES Final Result [facility] [address] [place] [address], [facility] [phone] from Last 3 Months or Most Recently Relevant to Health Maintenance Insurance [employer] Member Subscriber Plan / Payer (Ef fective 2022-Present) Name:Enrique Dietz Relation to Subscriber:Self Name:Enrique Dietz Payer ID:[id number] (NAIC) Type:Commercial Address: [place] [id number] [facility] SELF PAY NO INSURANCE Member Subscriber Plan / Payer (Ef fective for All Dates) Name:Enrique Dietz Member ID:Not on file Relation to Subscriber:Not on file Name:ENRIQUE DIETZ Subscriber ID:Not on file Address: [address] Payer ID:Not on file Group ID:Not on file Type:Self Pay Address: [place], [place] SELF PAY NO INSURANCE Member Subscriber Plan / Payer (Ef fective for All Dates) Name:Enrique Dietz Member ID:Not on file Relation to Subscriber:Not on file Name:RUMAJUAN PABLOENRIQUE JIMENEZ Subscriber ID:Not on file Address: [address] [place] [id number] Payer ID:Not on file Group ID:Not on file Type:Self Pay Address: [place], [place] [facility] SELF PAY NO INSURANCE Member Subscriber Plan / Payer (Ef fective for All Dates) Name:Enrique Dietz Member ID:Not on file Relation to Subscriber:Not on file Name:RUMAJUAN PABLOENRIQUE JIMENEZ Subscriber ID:Not on file Address: [address] [place] [phone] Payer ID:Not on file Group ID:Not on file Type:Self Pay Address: [place], [place] Advance Directives * Full Code (Latest Code Status on File) Date Activated Date Inactivated Comments 06/28/2023 3:55 PM 06/30/2023 2:32 PM
--- OUTSIDE RECORDS SUMMARY | 2024-07-22 16:32 | XMS_ITS | Referral Summary ---
Author Organization [facility] Address [address] [place] [address] Care Team Providers Care Gi Asst Name Role Phone Jace Barrera MD Primary Care Provider [phone] Allergies No known active allergies Medications cholecalciferol , vitamin D3, 1,000 unit tablet,chewable Take 1 tablet/chew tab by mouth daily Active [id number]-[id number] -[id number]-[id number] 1.5 mg iron- 8.73 mg-6.4 mg capsule,IR [...] 11/20 Assessment & Plan (01/24/2023 11:17 PM AGRICULTURE TEACHER): Patient is encouraged to lose weight with a combination of caloric reduction and increased exercise. Various strategies discussed. The long-term risks associated with continued morbid obesity discussed. Fatigue 06/21/2020 Assessment & Plan (10/14/2020 10:56 PM CDT): Increase vitamin-D supplementation and check level in 4 months. B12 and TSH normal Vitamin D deficiency 06/21/2020 Assessment & Plan (01/24/2023 11:17 PM AGRICULTURE TEACHER): Continue vitamin-D supplementation check level in 1 [...] 10/21/2018 Assessment & Plan (04/18/2019 8:46 AM AGRICULTURE TEACHER): Currently resolved and restart PPI as needed. Assessment & Plan (10/21/2018 2:45 PM CDT): Increase Ranitidine to 300 mg at bedtime every day. Recommend Tonsillectomy Recurrent tonsillitis 10/04/2018 Assessment & Plan (10/05/2018 3:53 PM CDT): Take Augmentin with a meal, have a Probiotic at a different meal (4 hours in between) [place] screen - call with results Follow up in 4-6 weeks If no improvement, consider Tonsillectomy Good hydration Adequate sleep 7-8 hours Idiopathic scoliosis 04/12/2018 Overview (04/12/2018): 2015 Healthcare maintenance 04/12/2018 Assessment & Plan (01/24/2023 11:16 PM AGRICULTURE TEACHER): Flu shot each December. Tetanus booster every 10 years. Follow-up the stoneworking sander for breast exam and pelvic exam as [...] needed. Assessment & Plan (04/18/2019 8:46 AM AGRICULTURE TEACHER): Flu shot each December. Tetanus booster every 10 years. Follow-up with the stoneworking sander for breast exam and pelvic exam as they direct. Diet exercise for weight loss discussed. Will see her back in 1 year for physical and fasting lab sooner if needed. Assessment & Plan (04/12/2018 9:02 AM AGRICULTURE TEACHER): Flu shot each December. Update her tetanus booster today. She should see her stoneworking sander yearly for breast exam and pelvic exam [...] Td, adsorbed 04/12/2018 Tdap 10/27/2007 Varicella 04/01/2007,11/05/1998 Social History Tobacco Use Types Packs/Day Years [...] on file Legal Sex Female 6:13 PM AGRICULTURE TEACHER Gender Identity Female 01/15/2021 8:48 PM CDT Sexual Orientation Not on file Last Filed [...] 01/12/2024 2:01 PM CDT Plan of Treatment Not on file Insurance [facility] H[facility]/PPO Address: [facility] [id number] [place] [address] [employer] [facility] EMPL[employer]EE HEALTH PLANS Address: [facility] [address] [place] [address] [facility] CHOICE PLUS [facility] H[facility]/PP[facility] Address: [place] [address] CHOICE PLUS [facility]/PP[facility] [place]: [place] [address] CHOICE PLUS [facility] H[facility]/PP[facility] Address: [place] [address] Care Teams Gi Asst Relationship Specialty Start Date End Date Jace Barrera MD [address] [address] PCP - General Internal Medicine 02/01/24
== END 2024-07-22 11:59 | disposition home or self-care (01) ==
LOC: ANHOBOP 12:01
PROVIDERS: Visit Provider Advanced Practice Midwife
DX: Z36.84 Encounter for antenatal screening for fetal lung maturity (principal)
CPT/HCPCS: 96372; J0702

== ENCOUNTER 2024-07-26 16:27 | Outpatient (CLI) | payer OTHER, SELFPAY | END 2024-07-26 19:30 | disposition home or self-care (01) | LOC: ANHOBOP 19:14 | PROVIDERS: Visit Provider Advanced Practice Midwife | DX: Z34.90 Encounter for supervision of normal pregnancy, unspecified, unspecified trimester (principal); Z3A.00 Weeks of gestation of pregnancy not specified | CPT/HCPCS: 59025 ==

== ENCOUNTER 2024-08-03 06:03 | Observation (INO) | payer OTHER, SELFPAY ==
[2024-08-03] VITALS (24 sets, daily range): BP systolic 114–132; BP diastolic 59–106; PULSE 73–106; O2SAT 95–100; BMI 40.6
--- OUTSIDE RECORDS SUMMARY | 2024-08-03 06:09 | XMS_ITS | Clinical Summary ---
Author Organization [facility] Address [address] [place] [address] Phone Care Team Providers Care Technician Chemical Cleaning Name Role Phone Unavailable Primary Care Provider Unavailabl e Allergies No known active allergies Medications vits15/iron/fol ic/dss ( VIT 16-SFFM-VAHAY-D SS ORAL) Take by mouth. Active aspirin (ECOTRIN EC) 81 mg Tablet, Delayed Release (E.C.) Take 1 Tablet (81 mg) by mouth daily. 60 Tablet 3 03/07/2024 Active indomethacin (INDOCIN) 25 mg capsule Take 1 Capsule (25 mg) by mouth every 4 hours. 6 Capsule 05/05/2024 10:10 AM DIESEL LOCOMOTIVE FIRER/FIREMAN 05/05/2024 Active ferrous fumarate (FERRETTS) 325 mg [...] 06/28/2024 11:30 AM CDT Video Visit [facility] Maternal Medicine [address] [place] [address] Sofia Goddard MD Obesity affecting [...] External Device Data STL ABSTRACTION Provider, Abstract from Last 3 Months Social History Tobacco [...] Sex Assigned at Female 02/07/2024 7:23 PM DIESEL LOCOMOTIVE FIRER/FIREMAN Legal Sex Female 2:26 PM DIESEL LOCOMOTIVE FIRER/FIREMAN Gender Identity Female 02/07/2024 7:23 PM DIESEL LOCOMOTIVE FIRER/FIREMAN Sexual Orientation Not on file Last Filed Vital Signs Vital Sign Reading Time Taken Comments Blood Pressure 112/61 05/05/2024 12:30 PM DIESEL LOCOMOTIVE FIRER/FIREMAN Pulse 88 05/05/2024 11:15 AM DIESEL LOCOMOTIVE FIRER/FIREMAN Temperature 36.6 C (97.9 F) 05/05/2024 12:30 PM DIESEL LOCOMOTIVE FIRER/FIREMAN Respiratory Rate 18 05/05/2024 12:30 PM DIESEL LOCOMOTIVE FIRER/FIREMAN Oxygen Saturation 100% 05/05/2024 11:15 AM DIESEL LOCOMOTIVE FIRER/FIREMAN Inhaled Oxygen Concentration - - Weight 95.7 kg (211 lb) 06/28/2024 11:25 AM CDT Height 152.4 cm (5') 06/28/2024 11:25 AM CDT Body Mass Index 41.21 06/28/2024 11:25 AM CDT Plan of Treatment Upcoming Encounters Date Type Department Care Team (Late st Contact Info) Description 09/08/2024 Hospital Encounter [facility] Labor & [address] [place] [address] Rena Dubose MD [address] [place] [address] Health Maintenance Due Date Last Done Comments DTAP/TDAP/TD VACCINES (7 - T d or Tdap) 10/26/2017 10/27/2007, 11/09/2002, 11/09/2002, Additional history exists HPV/Cotest (21-29) 2018 INFLUENZA VACCINE (#1) 2023 , 12/30/2018, 12/16/2017, Additional history exists COVID-19 Vaccine (2 - 2023-2 5 season) 2023 08/29/2020 CERVICAL CANCER SCREENING 10/08/2025 PAP SMEAR 10/08/2025 10/08/2022 HEPATITIS B VACCINES Completed 04/22/1998, [birth year] HPV VACCINES Completed 09/14/2011, 12/20, 10/29/2010 RSV VACCINE (60+ or ) (No Doses Required) Completed Procedures Procedure Name Priority Date/Time Associated Diagnosis Comments TELEMETRY REPORT 05/10/2024 2:20 PM DIESEL LOCOMOTIVE FIRER/FIREMAN from Last 3 Months Results * TELEMETRY REPORT (05/10/2024 2:20 PM DIESEL LOCOMOTIVE FIRER/FIREMAN) us Provider Scanning ECG ORDERABLES Final Result from Last 3 Months Insurance [facility] [id number] RX [employer] RX Member Subscriber Plan / Payer (Ef fective 2024-Present) Name:Edilma Moon Relation to Subscriber:Not on file Name:Edilma Moon Subscriber ID:Not on file Date of :1995 Payer ID:Not on file Group ID:[id number] Type:RX Commercial Address: [address] [place] Advance Directives For more information, please contact: [phone] * Full Code (Latest Code Status on File) Date Activated Date Inactivated Comments 05/04/2024 4:49 PM 05/05/2024 3:09 PM
--- OUTSIDE RECORDS SUMMARY | 2024-08-03 06:09 | XMS_ITS | Referral Summary ---
Author Organization [facility] Address [address] [place] [address] Care Team Providers Care Physician Ophthalmologist Name Role Phone Jace Barrera MD Primary Care Provider [phone] Allergies No known active allergies Medications cholecalciferol , vitamin D3, 1,000 unit tablet,chewable Take 1 tablet/chew tab by mouth daily Active [id number]-rpsa -xigpqw3-vz-hpu 1.5 mg iron- 8.73 mg-6.4 mg capsule,IR [...] 11/20 Assessment & Plan (01/24/2023 11:17 PM PRODUCT DEVELOPMENT DIRECTOR): Patient is encouraged to lose weight with a combination of caloric reduction and increased exercise. Various strategies discussed. The long-term risks associated with continued morbid obesity discussed. Fatigue 06/21/2020 Assessment & Plan (10/14/2020 10:56 PM CDT): Increase vitamin-D supplementation and check level in 4 months. B12 and TSH normal Vitamin D deficiency 06/21/2020 Assessment & Plan (01/24/2023 11:17 PM PRODUCT DEVELOPMENT DIRECTOR): Continue vitamin-D supplementation check level in 1 [...] 10/21/2018 Assessment & Plan (04/18/2019 8:46 AM PRODUCT DEVELOPMENT DIRECTOR): Currently resolved and restart PPI as needed. Assessment & Plan (10/21/2018 2:45 PM CDT): Increase Ranitidine to 300 mg at bedtime every day. Recommend Tonsillectomy Recurrent tonsillitis 10/04/2018 Assessment & Plan (10/05/2018 3:53 PM CDT): Take Augmentin with a meal, have a Probiotic at a different meal (4 hours in between) [place] screen - call with results Follow up in 4-6 weeks If no improvement, consider Tonsillectomy Good hydration Adequate sleep 7-8 hours Idiopathic scoliosis 04/12/2018 Overview (04/12/2018): 2015 Healthcare maintenance 04/12/2018 Assessment & Plan (01/24/2023 11:16 PM PRODUCT DEVELOPMENT DIRECTOR): Flu shot each December. Tetanus booster every 10 years. Follow-up the school bus driver/mechanic for breast exam and pelvic exam as [...] needed. Assessment & Plan (04/18/2019 8:46 AM PRODUCT DEVELOPMENT DIRECTOR): Flu shot each December. Tetanus booster every 10 years. Follow-up with the school bus driver/mechanic for breast exam and pelvic exam as they direct. Diet exercise for weight loss discussed. Will see her back in 1 year for physical and fasting lab sooner if needed. Assessment & Plan (04/12/2018 9:02 AM PRODUCT DEVELOPMENT DIRECTOR): Flu shot each December. Update her tetanus booster today. She should see her school bus driver/mechanic yearly for breast exam and pelvic exam [...] on file Legal Sex Female 6:13 PM PRODUCT DEVELOPMENT DIRECTOR Gender Identity Female 01/15/2021 8:48 PM CDT [...] of Treatment Not on file Insurance [employer] Address: [facility] [id number] [place] [address] [facility] CHOICE PLUS CHOICE PLUS CHOICE PLUS Care Teams Physician Ophthalmologist Relationship Specialty Start Date End Date Jace Barrera MD [address] [address] PCP - General Internal Medicine 02/01/24
--- OUTSIDE RECORDS SUMMARY | 2024-08-03 06:09 | XMS_ITS | Clinical Summary ---
Author Organization [facility] Address [address] [place] [address] Care Team Providers Care Master Rigger Name Role Phone Jace Barrera MD Primary Care Provider [phone] Allergies No known active allergies Medications cholecalciferol , vitamin D3, 1,000 unit tablet,chewable Take 1 tablet/chew tab by mouth daily Active [id number]-xhji -xfdaws5-lq-imb 1.5 mg iron- 8.73 mg-6.4 mg capsule,IR [...] 11/20 Assessment & Plan (01/24/2023 11:17 PM ABSTRACT CLERK): Patient is encouraged to lose weight with a combination of caloric reduction and increased exercise. Various strategies discussed. The long-term risks associated with continued morbid obesity discussed. Fatigue 06/21/2020 Assessment & Plan (10/14/2020 10:56 PM CDT): Increase vitamin-D supplementation and check level in 4 months. B12 and TSH normal Vitamin D deficiency 06/21/2020 Assessment & Plan (01/24/2023 11:17 PM ABSTRACT CLERK): Continue vitamin-D supplementation check level in 1 [...] 10/21/2018 Assessment & Plan (04/18/2019 8:46 AM ABSTRACT CLERK): Currently resolved and restart PPI as needed. Assessment & Plan (10/21/2018 2:45 PM CDT): Increase Ranitidine to 300 mg at bedtime every day. Recommend Tonsillectomy Recurrent tonsillitis 10/04/2018 Assessment & Plan (10/05/2018 3:53 PM CDT): Take Augmentin with a meal, have a Probiotic at a different meal (4 hours in between) [place] screen - call with results Follow up in 4-6 weeks If no improvement, consider Tonsillectomy Good hydration Adequate sleep 7-8 hours Idiopathic scoliosis 04/12/2018 Overview (04/12/2018): 2015 Healthcare maintenance 04/12/2018 Assessment & Plan (01/24/2023 11:16 PM ABSTRACT CLERK): Flu shot each December. Tetanus booster every 10 years. Follow-up the relocation coordinator for breast exam and pelvic exam as [...] needed. Assessment & Plan (04/18/2019 8:46 AM ABSTRACT CLERK): Flu shot each December. Tetanus booster every 10 years. Follow-up with the relocation coordinator for breast exam and pelvic exam as they direct. Diet exercise for weight loss discussed. Will see her back in 1 year for physical and fasting lab sooner if needed. Assessment & Plan (04/12/2018 9:02 AM ABSTRACT CLERK): Flu shot each December. Update her tetanus booster today. She should see her relocation coordinator yearly for breast exam and pelvic exam [...] on file Legal Sex Female 6:13 PM ABSTRACT CLERK Gender Identity Female 01/15/2021 8:48 PM CDT [...] patient's age to complete this topic Insurance [address] CHOICE PLUS [facility] CHOICE PLUS CHOICE PLUS CHOICE PLUS Care Teams Master Rigger Relationship Specialty Start Date End Date Jace Barrera MD [address] [address] PCP - General Internal Medicine 02/01/24
--- OUTSIDE RECORDS SUMMARY | 2024-08-03 06:09 | XMS_ITS | Continuity of Care Document ---
Author Organization [facility] Address [address] [place] [address] Assessment No assessment recorded. Plan of Treatment Reminders Order Date Submit Date Provider Last Modified By Organization Details Last Modified Time Details Appointments OB ROUTINE 2024 08:15A M Yamila Street CNM Not available Not available Not available NST 2024 03:00P M NST SCHEDULE Not available Not available Not available U/S OB BPP 2024 04:00P M ULTRASOUND Not available Not available Not available OB ROUTINE 2024 05:00P M Pamela ROSALES MD Not available Not available Not available NST 2024 03:00P M NST SCHEDULE Not available Not available Not available U/S OB BPP 2024 04:00P M ULTRASOUND Not available Not available Not available OB ROUTINE 2024 05:00P M Yamila Street CNM Not available Not available Not available NST 2024 03:00P M NST SCHEDULE Not available Not available Not available U/S OB BPP 2024 04:00P M ULTRASOUND Not available Not available Not available OB ROUTINE 2024 05:00P M Yamila Street CNM Not available Not available Not available NST 2024 03:00P M NST SCHEDULE Not available Not available Not available U/S OB BPP 2024 04:00P M ULTRASOUND Not available Not available Not available OB ROUTINE 2024 05:00P M Yamila Street CNM Not available Not available Not available NST 2024 03:00P M NST SCHEDULE Not available Not available Not available U/S OB BPP 2024 04:00P M ULTRASOUND Not available Not available Not available OB ROUTINE 2024 05:00P M Yamila Street, CNM Not available Not available Not available Lab None recorde d. Referral None recorde d. Procedures None recorde d. Surgeries None recorde d. Imaging US, obstetr ic, biophys ical profile + non-str ess test 2024 025 [address], [address], [place], [address], 08/02/2024 21:18:15 US, obstetr ic, biophys ical profile + non-str ess test 2024 [address], [address], [place], [address], 08/02/2024 21:18:15 Medication Orders None recorde d. Patient TargetsNo targets recorded. Patient InstructionsNo instructions recorded. Reason for Referral None Reported. Results Created Date Observation Date Name Description Value Unit Range Abnormal Flag Note LastModifiedBy Organization Detail LastModifiedTime 02/24/20 24 02/24/2024 US, obste tric, nucha l trans lucen cy No observ ation record ed. [facility] [address], [place], [address], 02/24/2024 17:03:07 02/24/20 24 02/24/2024 US, obste tric, nucha l trans lucen cy, addit ional gesta tion No observ ation record ed. [facility] [address], [place], [address], 02/24/2024 17:03:19 02/24/20 24 02/24/2024 US, obste tric, nucha l trans lucen cy No observ ation record ed. ron Marita [address], [place], [address], 02/24/2024 23:21:41 03/02/20 24 03/02/2024 US, obste tric, follo w-up No observ ation record ed. [address] [facility] [place] [address] [facility] [address], [place], [address], 03/10/2024 08:55:01 03/02/20 24 03/02/2024 US, obste tric, follo w-up No observ ation record ed. [address] [facility] [place] [address], [place], [address], 03/03/2024 16:06:01 03/30/19 25 03/30/2024 US, obste tric, follo w-up No observ ation record ed. [address], [place], [address], 04/04/2024 18:35:23 04/03/19 25 03/30/2024 US, obste tric, follo w-up No observ ation record ed. [address], [place], [address], 04/05/2024 13:01:47 04/13/19 25 04/13/2024 US, obste tric, follo w-up No observ ation record ed. [address], [place], [address], 04/24/2024 23:07:26 04/20/19 25 04/20/2024 US, obste tric, follo w-up No observ ation record ed. [address], [place], [address], 04/28/2024 15:38:52 04/27/19 25 04/27/2024 US, obste tric, follo w-up No observ ation record ed. [email or web address] [facility] [address] [facility] [address], [place], [address], 05/15/2024 13:13:35 04/27/19 25 04/27/2024 US, obste tric, follo w-up No observ ation record ed. [address] [facility] [address], [place], [address], 05/02/2024 10:47:43 05/04/19 25 05/04/2024 US, obste tric, follo w-up No observ ation record ed. [address] [place] [address] [facility] [address], [place], [address], 05/15/2024 10:24:23 05/04/19 25 05/04/2024 US, obste tric, limit ed No observ ation record ed. [email or web address] [facility], [place], [address], 05/08/2024 11:02:29 05/18/19 25 05/18/2024 US, obste tric, follo w-up No observ ation record ed. [email or web address] [place] [address], [place], [address], 05/18/2024 18:38:54 05/18/19 25 05/18/2024 US, obste tric, follo w-up No observ ation record ed. [email or web address] [place] [address], [place], [address], 05/18/2024 18:39:03 05/18/19 25 05/18/2024 US, obste tric, follo w-up No observ ation record ed. [email or web address] [address], [place], [address], 05/18/2024 21:37:42 03/28/20 25 06/16/2024 US, obste tric, follo w-up No observ ation record ed. [facility] [address], [place], [address], 06/16/2024 17:47:44 06/17/19 25 06/16/2024 US, obste tric, follo w-up No observ ation record ed. [email or web address] [place] [address], [place], [address], 07/19/2024 15:43:51 07/15/19 25 07/14/2024 non-s tress test No observ ation record ed. [place] [address], [place], [address], 07/17/2024 13:46:40 07/15/19 25 07/14/2024 non-s tress test No observ ation record ed. [email or web address] [place] [address], [place], [address], 07/14/2024 17:49:59 07/15/1907/14/2024 non-s tress test No observ ation record ed. [email or web address] [place] [address], [place], [address], 07/14/2024 17:54:22 07/20/19 25 06/16/2024 US, obste tric, follo w-up No observ ation record ed. [email or web address] [address], [place], [address], 07/19/2024 22:12:21 07/20/19 25 07/19/2024 US, obste tric, follo w-up No observ ation record ed. [facility] [address], [place], [address], 07/19/2024 18:23:21 07/20/19 25 07/19/2024 US, obste tric, follo w-up No observ ation record ed. [facility] [address], [place], [address], 07/19/2024 18:23:30 07/20/19 25 07/19/2024 US, obste tric, bioph ysica l profi le + non-s tress test No observ ation record ed. [facility] [address], [place], [address], 07/19/2024 18:23:40 07/20/19 25 07/19/2024 US, obste tric, follo w-up No observ ation record ed. [email or web address] [address], [place], [address], 07/21/2024 12:53:44 07/21/19 25 07/19/2024 non-s tress test No observ ation record ed. [email or web address] [place] [address], [place], [address], 07/20/2024 19:59:05 07/27/19 25 07/26/2024 US, obste tric, bioph ysica l profi le + non-s tress test No observ ation record ed. [email or web address] [place] [address], [place], [address], 07/26/2024 17:25:46 07/27/19 25 07/26/2024 US, obste tric, bioph ysica l profi le + non-s tress test No observ ation record ed. [email or web address] [place] [address], [place], [address], 07/26/2024 17:25:56 07/27/19 25 07/26/2024 US, obste tric, follo w-up No observ ation record ed. [email or web address] [address], [place], [address], 07/27/2024 08:51:55 07/27/19 25 07/26/2024 non-s tress test No observ ation record ed. [email or web address] [place] [address], [place], [address], 07/26/2024 20:17:32 07/27/19 25 07/26/2024 non-s tress test No observ ation record ed. [place] [address], [place], [address], 07/26/2024 22:03:57 08/03/19 25 08/02/2024 US, obste tric, bioph ysica l profi le + non-s tress test No observ ation record ed. [email or web address] [place] [address], [place], [address], 08/02/2024 18:16:02 08/03/19 25 08/02/2024 US, obste tric, bioph ysica l profi le + non-s tress test No observ ation record ed. [email or web address] [place] [address], [place], [address], 08/02/2024 18:16:11 08/03/19 25 08/02/2024 US, obste tric, bioph ysica l profi le + non-s tress test No observ ation record ed. [email or web address] [address], [place], [address], 08/02/2024 22:02:42 08/03/19 25 08/02/2024 non-s tress test No observ ation record ed. [email or web address] [place] [address], [place], [address], 08/02/2024 20:19:36 08/03/19 25 08/02/2024 non-s tress test No observ ation record ed. [email or web address] [place] [address], [place], [address], 08/02/2024 20:21:22 08/03/19 25 07/19/2024 non-s tress test No observ ation record ed. Not Available 08/02 20:49:35 Result Notes None recorded. Problems Name Problem SNOMED Code Status Onset Date Resolution Date Notes Provider Name and Address Organization Details Recorded Time Pregnanc y 42751197 Completed 202207/29/2023 Tonja campos, [facility] 15:05:38 Past pregnanc y history of miscarri age 092044141 Completed x 4, start ASA Katheryn Nuñez [facility] 4 11:39:35 Acid reflux 111347775 Completed Katheryn Nuñez [facility] 4 11:39:35 Obesity 077045900 Completed 34 wk antenata l testing Katheryn Nuñez [facility] 4 11:39:34 COVID-19 596703717 Completed 2022 asa , serial growth Katheryn Nuñez [facility] 4 11:39:35 Placenta previa 97017511 Completed resolved [facility] 11:39:35 Low lying placenta 203123217 Completed Katheryn Nuñez [facility] 4 11:39:35 History of SARS-CoV -2 2035956761 32001871 Active 2023 Covid 02/2023 Negrita Ortiz null, [facility] 4 17:48:26 Pregnanc y 81512713 Active 2023 Tonja Mosqueda null, [facility] 4 15:05:38 Dichorio juan diamniot ic twin pregnanc y 804641810 [facility]24 US /CL 04/13 [facility] 04/27 & 05/04 Delivery is recommen ded around 38 weeks for uncompli cated di/di twins Sana Gloria null, [facility] 5 16:27:55 Dichorio juan diamniot ic twin pregnanc y 285794151 [facility] 03/30/24 US /CL 04/13 US only schedule d for CL [facility] 04/27 & 05/04 Delivery is recommen ded around 38 weeks for uncompli cated di/di twins Sana Gloria null, [facility] 5 16:27:55 Past pregnanc y history of placenta l abruptio n 965154774 Active 33W6D Sana Gloria null, [facility] 5 14:02:58 Obesity 135128136 Active BMI >40 weekly testing @34wks Sana Gloria null, [facility] 5 16:26:11 Past pregnanc y history of multiple miscarri ages Active [address], [facility] [address], [place], [address], [place] [facility] 5 17:02:37 Short cervical length in pregnanc y 919853675 Active 05/04 [facility] CL 1.28 admitted for eval & cercalge placemen t 21w6d Per Dr Sedrick Gloria null, [facility] 5 18:01:55 Short cervical length in pregnanc y 340560379 Active 05/04 [facility] CL 1.28 admitted for eval & cercalge placemen t 21w6d Per Dr Sedrick campos, [facility] 5 18:01:55 Gestatio nal diabetes mellitus 21351272 Active BS QID, Serial growth us DT referral faxed to [facility] 06/23 sched 06/28- DT cancelle d no coverage for insuranc kenrick Sana campos, [facility] 5 13:47:58 Gestatio nal diabetes mellitus 28446169 Active BS QID, Serial growth us DT referral faxed to [facility] 06/23 sched 06/28- DT cancelle d no coverage for insuranc kenrick Sana campos, [facility] 5 13:47:58 Problem Notes None recorded. Procedures Surgical History Date Name Laterality Status Provider Name and Address Organization Details Recorded Time 05/05/19 25 cerclage completed Negritakim Ortiz [facility] 05/19/2024 16:58:05 02/04/20 24 Date of Last Pap Smear completed Nergitakim Ortiz [facility] 02/04/2024 12:47:09 10/02/19 23 DILATION & CURETTAGE (SURG) completed Ginger Mistry [facility] 10/02/2022 10:47:21 03/22/19 19 Tonsillectomy completed Negrita Ortiz [facility] 09/10/2022 17:23:24 Imaging Results Imaging Date Name Status LastModified by [email or web address] Details LastModified Time 08/02/2024 US, obstetric, biophysical profile + non-stress test completed [email or web address] [place] [address], [place], [address], 08/02/2024 18:16:02 08/02/2024 US, obstetric, biophysical profile + non-stress test completed [email or web address] [place] [address], [place], [address], 08/02/2024 18:16:11 Procedure Notes None recorded. Medical Equipment None Reported. Allergies No known drug allergies Medications Name Sig Start Date Stop Date Status Note LastModified by Organization Details LastModified Time azithromyci n 250 mg tablet TAKE 2 TABLETS BY MOUTH FOR 1 DAY THEN TAKE 1 TABLET BY MOUTH DAILY FOR 4 DAYS 01/30 completed Not Available Not Available Not Available ondansetron HCl 4 mg tablet TAKE 1 TABLET BY MOUTH EVERY DAY NEEDED 05/19 completed Not Available Not Available Not Available Zyrtec 10 mg tablet 09/10 completed Not Available Not Available Not Available metronidazo le 500 mg tablet TAKE 1 TABLET BY MOUTH EVERY 12 HOURS active Not Available Not Available No t Available amoxicillin 875 mg tablet TAKE 1 TABLET BY MOUTH EVERY 12 HOURS FOR 7 DAYS 03/31 completed Not Available Not Available Not Available cephalexin 500 mg capsule TAKE 1 CAPSULE BY MOUTH TWICE DAILY FOR 7 DAYS 02/03 completed Not Available Not Available Not Available indomethaci n 25 mg capsule 05/19 completed Not Available Not Available Not Available progesteron e micronized 200 mg capsule Take 1 capsule every day by oral route. 04/28 completed Not Available Not Available Not Available Baby Aspirin 81 mg chewable tablet 1 tablet every day by oral route. active Not Available Not Available No t Available iron,carbon yl 100 mg-vitamin C 250 mg tablet 1 tablet every day by oral route. active Not Available Not Available No t Available ondansetron 4 mg disintegrat ing tablet DISSOLVE 1 TABLET ON THE TONGUE EVERY 8 HOURS 07/27 completed Not Available Not Available Not Available fluticasone propionate 50 mcg/actuati on nasal spray,suspe nsion SHAKE LIQUID AND USE 2 SPRAYS IN EACH NOSTRIL DAILY 08/03 completed Not Available Not Available Not Available amoxicillin 875 mg-potassiu m clavulanate 125 mg tablet TAKE 1 TABLET BY MOUTH TWICE DAILY FOR 10 DAYS 03/31 completed Not Available Not Available Not Available Adult Aspirin 81 mg tablet 09/02 completed Not Available Not Available Not Available azithromyci n 500 mg tablet 04/28 completed Not Available Not Available Not Available nitrofurant oin monohydrate /macrocryst als 100 mg capsule TAKE 1 CAPSULE BY MOUTH EVERY 12 HOURS 07/27 completed Not Available Not Available Not Available FIRST-Proge sterone VGS 200 200 mg vaginal suppository 03/31 completed Not Available Not Available Not Available progesteron e 02/10 completed Not Available Not Available Not Available Unisom (doxylamine ) 03/31 completed Not Available Not Available Not Available Vitamin 08/03 completed Not Available Not Available Not Available DHA 200 mg capsule active Not Available Not Available Not Available Daily 10/07 completed Not Available Not Available Not Available OneTouch Verio test strips USE TO MONITOR BLOOD SUGAR LEVELS FOUR TIMES DAILY active Not Available Not Available No t Available OneTouch Verio Flex Meter USE TO MONITOR BLOOD SUGAR LEVELS DIRECTED active Not Available Not Available No t Available OneTouch Delica Plus Lancet 33 gauge USE TO MONITOR BLOOD SUGAR LEVELS FOUR TIMES DAILY active Not Available Not Available No t Available Vitals Date Recorded Body height Body mass index (BMI) Body weight Systolic blood pressure Diastolic blood pressure Provider Name and Address Organization Details Last Updated DateTime 08/02/2024 152.4 cm 40.6 kg/m2 61677.21 g 118 mm[Hg] 77 mm[Hg] Negrita Ortiz [facility] 20:18:04 Social History Question Answer Notes LastModified by Organizat ion Details LastModified Time Tobacco Smoking Status Never Smoker Dipika campos, [facility] 03/31/2023 16:36:40 Do You Have An Advance Directive? No Information n ot available 10/03/2021 If You Are , What Was Your Level Of Alcohol Consumption Prior To ? Occasional [email or web address] Information not available 03/31/2023 How Many Years Have You Consumed Alcohol? 4 Information not available 10/03/2021 Are You Blind Or Do You Have Difficulty Seeing? No Information n ot available 10/03/2021 What Is Your Level Of Caffeine Consumption? Occasional Information not available 10/03/2021 How Much Tobacco Do You Chew? None Information not available 10/03/2021 In The 14 Days Before Symptom Onset, Have You Had Close Contact With A Laboratory-confirm ed COVID-19 While That Case Was Ill? No Information n ot available 10/03/2021 In The 14 Days Before Symptom Onset, Have You Had Close Contact With A Person Who Is Under Investigation For COVID-19 While That Person Was Ill? No Information not available 10/03/2021 Have You Been To An Area Known To Be High Risk For COVID-19? No Information not available 10/03/2021 Are You Deaf Or Do You Have Serious Difficulty Hearing? No Information not available 10/03/2021 What Type Of Diet Are You Following? REGULAR Information n ot available 10/03/2021 What Is The Highest Grade Or Level Of School You Have Completed Or The Highest Degree You Have Received? [id number] Information not available 10/03/2021 Are There Any Guns Present In Your Home? Yes Information not available 10/03/2021 Have You Ever Been Counseled For Unhealthy Alcohol Use? No Information not available 03/31/2023 Do You Use Protection During Sex? No Information not available 10/03/2021 Do You Use Your Seat Belt Or Car Seat Routinely? Yes Information not available 10/03/2021 Do You Have Smoke And Carbon Monoxide Detectors In Your Home? Yes Information not available 10/03/2021 How Much Tobacco Do You Smoke? No Information not available 10/03/2021 Do You Use Sunscreen Routinely? Yes Information not available 10/03/2021 Have You Used IV Drugs? No Information not available 10/03/2021 Do You Have Difficulty Walking Or Climbing Stairs? No [email or web address] Information not available 03/31/2023 Sex: Unknown Functional Status Question Answer Note LastModified by Organizat ion Details LastModified Time Do you use any illicit or recreational drugs? No Information not available 10/03/2021 What is your level of alcohol consumption? None Information not available 02/10/2023 Are you able to walk? YESWOREST Information not available 10/03/2021 Are you able to care for yourself? 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 No Information not available 03/31/2023 What is your exercise level? Moderate Information not available 10/03/2021 Mental Status Question Answer Note LastModified by Organization D etails LastModified Time Do you feel stressed (tense, restless, nervous, or anxious, or unable to sleep at night)? [id number] Information not available 10/03/2021 Family History Relationship Description Onset Age of this Age Resolved Age Notes LastModified by Organization Details LastModified Time Maternal Grandmother Diabetes mellitus Not available 05/25 10:41:48 Father Hypercholest erolemia [email or web address] Not available 05/25 10:41:48 Medical History Condition Response Allergies (Food, seasonal, environmental ) Y Other N Breast Cancer N Drug/Latex Allergies/Reactions N Blood Transfusion N Dermatologic Disorders N Lung Disease N Defects or Inherited Disease N Breast Problem N Gestational Diabetes N Hematologic disorders N Anesthesia Complications N History of STI N Deep Vein Thrombosis N Polycystic ovary syndrome N Anxiety Disorder N Autoimmune disease N Arthritis N Infertility N Polyps N Acid Reflux (GERD) Y History of abnormal pap N Cancer N Stroke N Varicosities N Neurologic/Epilepsy N Endometriosis N High Cholesterol N Headaches N Fibromyalgia N Kidney Disease N Heart Problems N Kidney or Bladder Problems N Thyroid Problems N GI Problems N Eating Disorder N Anemia N Art (IVF or FET) N Psychiatric Illness N Ovarian Cancer N Diabetes N Pulmonary (TB, Asthma) Y Hepatitis/Liver Disease N No Past Medical History N Eczema N Urinary Tract Infection N Abuse/Domestic Violence N Asthma N Trauma/Violence N Depression/ depression N Heart Disease N Pre-Eclampsia N Hypertension N Osteoporosis N Thrombophilias N Gynecological History Statement/Question Response Abnormal Pap N Date of Last Mammogram Flow Moderate Date of LMP 12/03/2023 On BCP's at Conception? N N Was last menstrual period normal Y STIs/STDs N HPV Vaccine N Duration of Flow (days) 3 Current Control Method Frequency of Cycle (Q days) 28 Sexually Active? Y Date of DEXA bone scan Age of first menstrual cycle 16 Date of Last Pap Smear 02/04/2024 Sexual Problems? N Desired Control Method N/A LMP Definite N Obstetrics History GPAL:G 6 P 0 1 4 1 Type Value Spontaneous 4 Premature 1 Living 1 Total 6 Past Encounters Encounter ID Performer Location Encounter Start Date Encounter Closed Date Diagnosis/Indication Diagnosis SNOMED-CT Code Diagnosis ICD10 Code Diagnosis [facility] [id number] [facility] [address] [address] 07/14/2024 15:46:53 07/15/2024 11:32:25 Twin [id number] O30.009 [id number] [facility] [address],[place] [address] 07/14/2024 15:47:40 07/17/2024 00:24:18 Gestation period, 32 weeks 2862887 Z3A.32 Dichorioni c diamniotic twin [id number] O30.043 [id number] Ralph Rosales MD [place] [address],[place] [address] 07/19/2024 14:53:53 07/19/2024 16:07:49 Dichorionic diamniotic twin [id number] O30.043 O24.[id number] [facility] [address],[place] [address] 07/19/2024 14:54:12 07/21/2024 03:55:08 Dichorionic diamniotic twin 155611548 O30.043 [id number]|2024-08-03 06:09:00|2024-08-03 06:09:00|XMS_ITS|CRISTYG ZA|External Medical Summaries|[id number]|" Continuity of Care Document Created on: August 03, 2024 Edilma Moon .[id number] : 1995 Sex: Female Author Organization [facility] [place] Address [address] [place] [address] Assessment No assessment recorded. Plan of Treatment Reminders Order Date Submit Date Provider Last Modified By Organization Details Last Modified Time Details Appointments OB ROUTINE 2024 08:15A M Yamila tSreet CNM Not available Not available Not available NST 2024 03:00P M NST SCHEDULE Not available Not available Not available U/S OB BPP 2024 04:00P M ULTRASOUND Not available Not available Not available OB ROUTINE 2024 05:00P M Pamela ROSALES MD Not available Not available Not available NST 2024 03:00P M NST SCHEDULE Not available Not available Not available U/S OB BPP 2024 04:00P M ULTRASOUND Not available Not available Not available OB ROUTINE 2024 05:00P M [address]ila Street CNM Not available Not available Not available NST 2024 03:00P M NST SCHEDULE Not available Not available Not available U/S OB BPP 2024 04:00P M ULTRASOUND Not available Not available Not available OB ROUTINE 2024 05:00P M [address] Street CNM Not available Not available Not available NST 2024 03:00P M NST SCHEDULE Not available Not available Not available U/S OB BPP 2024 04:00P M ULTRASOUND Not available Not available Not available OB ROUTINE 2024 05:00P M LEWIS HolderM Not available Not available Not available NST 2024 03:00P M NST SCHEDULE Not available Not available Not available U/S OB BPP 2024 04:00P M ULTRASOUND Not available Not available Not available OB ROUTINE 2024 05:00P M Yamila Yenifer, CLARE Not available Not available Not available Lab None recorde d. Referral None recorde d. Procedures None recorde d. Surgeries None recorde d. Imaging non-str ess test 2024 025 [email or web address] [place], [address], [address], [place], [address], 08/03/2024 02:03:15 Medication Orders None recorde d. Patient TargetsNo targets recorded. Patient InstructionsNo instructions recorded. Reason for Referral None Reported. Results Created Date Observation Date Name Description Value Unit Range Abnormal Flag Note LastModifiedBy Organization Detail LastModifiedTime 02/24/2002/24/2024 US, obste tric, nucha l trans lucen cy No observ ation record ed. [facility] [address], [place], [address], 02/24/2024 17:03:07 02/24/20 24 02/24/2024 US, obste tric, nucha l trans lucen cy, addit ional gesta tion No observ ation record ed. [facility] [address], [place], [address], 02/24/2024 17:03:19 02/24/20 24 02/24/2024 US, obste tric, nucha l trans lucen cy No observ ation record ed. ron Kirkland [address], [place], [address], 02/24/2024 23:21:41 03/02/20 24 03/02/2024 US, obste tric, follo w-up No observ ation record ed. [address] [facility] [address] [facility] [address], [place], [address], 03/10/2024 08:55:01 03/02/20 24 03/02/2024 US, obste tric, follo w-up No observ ation record ed. [address] [facility] [address], [place], [address], 03/03/2024 16:06:01 03/30/19 25 03/30/2024 US, obste tric, follo w-up No observ ation record ed. [address] [facility] [place] [address], [place], [address], 04/04/2024 18:35:23 04/03/19 25 03/30/2024 US, obste tric, follo w-up No observ ation record ed. [address] [place] [address] [facility] [address], [place], [address], 04/05/2024 13:01:47 04/13/19 25 04/13/2024 US, obste tric, follo w-up No observ ation record ed. [address] [facility] [address], [place], [address], 04/24/2024 23:07:26 04/20/19 25 04/20/2024 US, obste tric, follo w-up No observ ation record ed. [address] [place] [address] [facility] [address], [place], [address], 04/28/2024 15:38:52 04/27/19 25 04/27/2024 US, obste tric, follo w-up No observ ation record ed. [address] [facility] [address], [place], [address], 05/15/2024 13:13:35 04/27/19 25 04/27/2024 US, obste tric, follo w-up No observ ation record ed. [address] [facility] [place] [address], [place], [address], 05/02/2024 10:47:43 05/04/19 25 05/04/2024 US, obste tric, follo w-up No observ ation record ed. [email or web address] [facility] [address], [place], [address], 05/15/2024 10:24:23 05/04/19 25 05/04/2024 US, obste tric, limit ed No observ ation record ed. [email or web address] [facility] [address] [facility], [place], [address], 05/08/2024 11:02:29 05/18/19 25 05/18/2024 US, obste tric, follo w-up No observ ation record ed. [email or web address] [place] [address], [place], [address], 05/18/2024 18:38:54 05/18/19 25 05/18/2024 US, obste tric, follo w-up No observ ation record ed. [email or web address] [place] [address], [place], [address], 05/18/2024 18:39:03 05/18/19 25 05/18/2024 US, obste tric, follo w-up No observ ation record ed. [email or web address] [address], [place], [address], 05/18/2024 21:37:42 06/17/19 25 06/16/2024 US, obste tric, follo w-up No observ ation record ed. [facility] [address], [place], [address], 06/16/2024 17:47:44 06/17/19 25 06/16/2024 US, obste tric, follo w-up No observ ation record ed. dee Kirkland [address], [place], [address], 07/19/2024 15:43:51 07/15/19 25 07/14/2024 non-s tress test No observ ation record ed. [address], [place], [address], 07/17/2024 13:46:40 07/15/19 25 07/14/2024 non-s tress test No observ ation record ed. [email or web address] [place] [address], [place], [address], 07/14/2024 17:49:59 07/15/1907/14/2024 non-s tress test No observ ation record ed. [address], [place], [address], 07/14/2024 17:54:22 07/20/19 25 06/16/2024 US, obste tric, follo w-up No observ ation record ed. [email or web address] [address] [facility], [place], [address], 07/19/2024 22:12:21 07/20/19 25 07/19/2024 US, obste tric, follo w-up No observ ation record ed. [facility] [address], [place], [address], 07/19/2024 18:23:21 07/20/19 25 07/19/2024 US, obste tric, follo w-up No observ ation record ed. [facility] [address], [place], [address], 07/19/2024 18:23:30 07/20/19 25 07/19/2024 US, obste tric, bioph ysica l profi le + non-s tress test No observ ation record ed. [facility] [address], [place], [address], 07/19/2024 18:23:40 07/20/19 25 07/19/2024 US, obste tric, follo w-up No observ ation record ed. [email or web address] [address], [place], [address], 07/21/2024 12:53:44 07/21/19 25 07/19/2024 non-s tress test No observ ation record ed. [email or web address] [place] [address], [place], [address], 07/20/2024 19:59:05 07/27/19 25 07/26/2024 US, obste tric, bioph ysica l profi le + non-s tress test No observ ation record ed. [email or web address] [place] [address], [place], [address], 07/26/2024 17:25:46 07/27/19 25 07/26/2024 US, obste tric, bioph ysica l profi le + non-s tress test No observ ation record ed. [email or web address] [place] [address], [place], [address], 07/26/2024 17:25:56 07/27/19 25 07/26/2024 US, obste tric, follo w-up No observ ation record ed. [email or web address] [address], [place], [address], 07/27/2024 08:51:55 07/27/19 25 07/26/2024 non-s tress test No observ ation record ed. [email or web address] [place] [address], [place], [address], 07/26/2024 20:17:32 07/27/19 25 07/26/2024 non-s tress test No observ ation record ed. [email or web address] [place] [address], [place], [address], 07/26/2024 22:03:57 08/03/19 25 08/02/2024 US, obste tric, bioph ysica l profi le + non-s tress test No observ ation record ed. [email or web address] [place] [address], [place], [address], 08/02/2024 18:16:02 08/03/19 25 08/02/2024 US, obste tric, bioph ysica l profi le + non-s tress test No observ ation record ed. [email or web address] [place] [address], [place], [address], 08/02/2024 18:16:11 08/03/19 25 08/02/2024 US, obste tric, bioph ysica l profi le + non-s tress test No observ ation record ed. [email or web address] [address] [facility], [place], [address], 08/02/2024 22:02:42 08/03/19 25 08/02/2024 non-s tress test No observ ation record ed. [email or web address] [place] [address], [place], [address], 08/02/2024 20:19:36 08/03/19 25 08/02/2024 non-s tress test No observ ation record ed. [email or web address] [place] [address], [place], [address], 08/02/2024 20:21:22 08/03/19 25 07/19/2024 non-s tress test No observ ation record ed. [email or web address] Not Available 08/02 20:49:35 Result Notes None recorded. Problems Name Problem SNOMED Code Status Onset Date Resolution Date Notes Provider Name and Address Organization Details Recorded Time Pregnanc y 90114641 Completed 202207/29/2023 Tonja Panda [facility], [facility] 4 15:05:38 Past pregnanc y history of miscarri age 633279788 Completed x 4, start ASA Katheryn Nuñez [facility] 4 11:39:35 Acid reflux 173671674 Completed Katheryn Nuñez [facility] 4 11:39:35 Obesity 764465346 Completed 34 wk antenata l testing Katheryn Nuñez [facility] 4 11:39:34 COVID-19 120185819 Completed 2022 asa , serial growth Katheryn Nuñez [facility], [facility] 4 11:39:35 Placenta previa 44207296 Completed resolved 06/30 Katheryn Nuñez [facility] 4 11:39:35 Low lying [facility] 316505606 [facility] 4 11:39:35 History of SARS-CoV -2 1490954984 71062553 Active 2023 Covid 02/2023 Negrita Ortiz null, [facility] 4 17:48:26 Pregnanc y 34367155 Active 2023 Tonja Panda [facility], [facility] 4 15:05:38 Dichorio juan diamniot ic twin pregnanc y 466577281 Active [facility] 03/30/24 US /CL 04/13 [facility]04 Delivery is recommen ded around 38 weeks for uncompli cated di/di twins Sana campos, [facility] 5 16:27:55 Dichorio juan diamniot ic twin pregnanc y 907159209 Active [facility] 03/30/24 US /CL 04/13 US only schedule d for CL us [facility] 04/27 & 05/04 Delivery is recommen ded around 38 weeks for uncompli cated di/di twins Sana Gloria beth, [facility] 5 16:27:55 Past pregnanc y history of placenta l abruptio n 402089722 Active 33W6D Sana Gloria [facility], [facility] 5 14:02:58 Obesity 385862878 Active BMI >40 weekly testing @34wks Sana campos, [facility] 5 16:26:11 Past pregnanc y history of multiple miscarri ages Active [address] [address], [place], [address], , [facility] 5 17:02:37 Short cervical length in pregnanc y 026250693 Active 05/04 [facility] CL 1.28 admitted for eval & cercalge placemen t 21w6d Per Dr Sedrick Gloria [facility], [facility] 5 18:01:55 Short cervical length in pregnanc y 876924172 Active 05/04 [facility] CL 1.28 admitted for eval & cercalge placemen t 21w6d Per Dr Sedrick Gloria [facility], [facility] 5 18:01:55 Gestatio nal diabetes mellitus 42497257 Active BS QID, Serial growth us DT referral faxed to [facility] 06/23 sched 06/28- DT cancelle d no coverage for insuranc Mazin campos, [facility] 5 13:47:58 Gestatio nal diabetes mellitus 42662065 Active BS QID, Serial growth us DT referral faxed to [facility] 06/23 sched 06/28- DT cancelle d no coverage for insuranc Mazin campos, [facility] 13:47:58 Problem Notes None recorded. Procedures Surgical History Date Name Laterality Status Provider Name and Address Organization Details Recorded Time 05/05/19 25 [facility]2024 16:58:05 02/04/20 24 Date of Last Pap Smear completed [facility] 02/04/2024 12:47:09 10/02/19 23 DILATION & CURETTAGE (SURG) completed Ginger Mistry [facility] 10/02/2022 10:47:21 03/22/19 19 [facility] 09/10/2022 17:23:24 Imaging Results Imaging Date Name Status LastModified by Organiz ation Details LastModified Time 08/02/2024 non-stress test completed [email or web address] [place] [address], [place], [address], 08/02/2024 20:19:36 Procedure Notes None recorded. Medical Equipment None Reported. Allergies No known drug allergies Medications Name Sig Start Date Stop Date Status Note LastModified by Organization Details LastModified Time azithromyci n 250 mg tablet TAKE 2 TABLETS BY MOUTH FOR 1 DAY THEN TAKE 1 TABLET BY MOUTH DAILY FOR 4 DAYS 01/30 completed Not Available Not Available Not Available ondansetron HCl 4 mg tablet TAKE 1 TABLET BY MOUTH EVERY DAY NEEDED 05/19 completed Not Available Not Available Not Available Zyrtec 10 mg tablet 09/10 completed Not Available Not Available Not Available metronidazo le 500 mg tablet TAKE 1 TABLET BY MOUTH EVERY 12 HOURS active Not Available Not Available No t Available amoxicillin 875 mg tablet TAKE 1 TABLET BY MOUTH EVERY 12 HOURS FOR 7 DAYS 03/31 completed Not Available Not Available Not Available cephalexin 500 mg capsule TAKE 1 CAPSULE BY MOUTH TWICE DAILY FOR 7 DAYS 02/03 completed Not Available Not Available Not Available indomethaci n 25 mg capsule 05/19 completed Not Available Not Available Not Available progesteron e micronized 200 mg capsule Take 1 capsule every day by oral route. 04/28 completed Not Available Not Available Not Available Baby Aspirin 81 mg chewable tablet 1 tablet every day by oral route. active Not Available Not Available No t Available iron,carbon yl 100 mg-vitamin C 250 mg tablet 1 tablet every day by oral route. active Not Available Not Available No t Available ondansetron 4 mg disintegrat ing tablet DISSOLVE 1 TABLET ON THE TONGUE EVERY 8 HOURS 07/27 completed Not Available Not Available Not Available fluticasone propionate 50 mcg/actuati on nasal spray,suspe nsion SHAKE LIQUID AND USE 2 SPRAYS IN EACH NOSTRIL DAILY 08/03 completed Not Available Not Available Not Available amoxicillin 875 mg-potassiu m clavulanate 125 mg tablet TAKE 1 TABLET BY MOUTH TWICE DAILY FOR 10 DAYS 03/31 completed Not Available Not Available Not Available Adult Aspirin 81 mg tablet 09/02 completed Not Available Not Available Not Available azithromyci n 500 mg tablet 04/28 completed Not Available Not Available Not Available nitrofurant oin monohydrate /macrocryst als 100 mg capsule TAKE 1 CAPSULE BY MOUTH EVERY 12 HOURS 07/27 completed Not Available Not Available Not Available FIRST-Proge sterone VGS 200 200 mg vaginal suppository 03/31 completed Not Available Not Available Not Available progesteron e 02/10 completed Not Available Not Available Not Available Unisom (doxylamine ) 03/31 completed Not Available Not Available Not Available Vitamin 08/03 completed Not Available Not Available Not Available DHA 200 mg capsule active Not Available Not Available Not Available Daily 10/07 completed Not Available Not Available Not Available OneTouch Verio test strips USE TO MONITOR BLOOD SUGAR LEVELS FOUR TIMES DAILY active Not Available Not Available No t Available OneTouch Verio Flex Meter USE TO MONITOR BLOOD SUGAR LEVELS DIRECTED active Not Available Not Available No t Available OneTouch Delica Plus Lancet 33 gauge USE TO MONITOR BLOOD SUGAR LEVELS FOUR TIMES DAILY active Not Available Not Available No t Available Vitals Date Recorded Body height Body mass index (BMI) Body weight Systolic blood pressure Diastolic blood pressure Provider Name and Address Organization Details Last Updated DateTime 08/02/2024 152.4 cm 40.6 kg/m2 67963.21 g 118 mm[Hg] 77 mm[Hg] Negrita Ortiz [facility] 20:18:04 Social History Question Answer Notes LastModified by Organizat ion Details LastModified Time Tobacco Smoking Status Never Smoker Dipika campos, [facility] 03/31/2023 16:36:40 Do You Have An Advance Directive? No Information n ot available 10/03/2021 If You Are , What Was Your Level Of Alcohol Consumption Prior To ? Occasional [email or web address] Information not available 03/31/2023 How Many Years Have You Consumed Alcohol? 4 Information not available 10/03/2021 Are You Blind Or Do You Have Difficulty Seeing? No Information n ot available 10/03/2021 What Is Your Level Of Caffeine Consumption? Occasional Information not available 10/03/2021 How Much Tobacco Do You Chew? None Information not available 10/03/2021 In The 14 Days Before Symptom Onset, Have You Had Close Contact With A Laboratory-confirm ed COVID-19 While That Case Was Ill? No Information n ot available 10/03/2021 In The 14 Days Before Symptom Onset, Have You Had Close Contact With A Person Who Is Under Investigation For COVID-19 While That Person Was Ill? No Information not available 10/03/2021 Have You Been To An Area Known To Be High Risk For COVID-19? No Information not available 10/03/2021 Are You Deaf Or Do You Have Serious Difficulty Hearing? No Information not available 10/03/2021 What Type Of Diet Are You Following? REGULAR Information n ot available 10/03/2021 What Is The Highest Grade Or Level Of School You Have Completed Or The Highest Degree You Have Received? [id number] Information not available 10/03/2021 Are There Any Guns Present In Your Home? Yes Information not available 10/03/2021 Have You Ever Been Counseled For Unhealthy Alcohol Use? No [email or web address] Information not available 03/31/2023 Do You Use Protection During Sex? No Information not available 10/03/2021 Do You Use Your Seat Belt Or Car Seat Routinely? Yes Information not available 10/03/2021 Do You Have Smoke And Carbon Monoxide Detectors In Your Home? Yes Information not available 10/03/2021 How Much Tobacco Do You Smoke? No Information not available 10/03/2021 Do You Use Sunscreen Routinely? Yes Information not available 10/03/2021 Have You Used IV Drugs? No Information not available 10/03/2021 Do You Have Difficulty Walking Or Climbing Stairs? No [email or web address] Information not available 03/31/2023 Sex: Unknown Functional Status Question Answer Note LastModified by Organizat ion Details LastModified Time Do you use any illicit or recreational drugs? No Information not available 10/03/2021 What is your level of alcohol consumption? None [email or web address] Information not available 02/10/2023 Are you able to walk? YESWOREST Information not available 10/03/2021 Are you able to care for yourself? 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 No [email or web address] Information not available 03/31/2023 What is your exercise level? Moderate Information not available 10/03/2021 Mental Status Question Answer Note LastModified by Organization D etails LastModified Time Do you feel stressed (tense, restless, nervous, or anxious, or unable to sleep at night)? [id number] Information not available 10/03/2021 Family History Relationship Description Onset Age of this Age Resolved Age Notes LastModified by Organization Details LastModified Time Maternal Grandmother Diabetes mellitus [email or web address] Not available 05/25 10:41:48 Father Hypercholest [email or web address] Not available 05/25 10:41:48 Medical History Condition Response Allergies (Food, seasonal, environmental ) Y Other N Breast Cancer N Drug/Latex Allergies/Reactions N Blood Transfusion N Lung Disease N Dermatologic Disorders N Defects or Inherited Disease N Breast Problem N Gestational Diabetes N Hematologic disorders N Anesthesia Complications N History of STI N Deep Vein Thrombosis N Polycystic ovary syndrome N Anxiety Disorder N Autoimmune disease N Arthritis N Polyps N Infertility N History of abnormal pap N Acid Reflux (GERD) Y Cancer N Varicosities N Stroke N Neurologic/Epilepsy N Endometriosis N High Cholesterol N Fibromyalgia N Headaches N Kidney Disease N Heart Problems N Kidney or Bladder Problems N Thyroid Problems N GI Problems N Eating Disorder N Anemia N Art (IVF or FET) N Psychiatric Illness N Ovarian Cancer N Diabetes N Pulmonary (TB, Asthma) Y Hepatitis/Liver Disease N No Past Medical History N Eczema N Urinary Tract Infection N Abuse/Domestic Violence N Asthma N Trauma/Violence N Depression/ depression N Heart Disease N Pre-Eclampsia N Hypertension N Osteoporosis N Thrombophilias N Gynecological History Statement/Question Response Abnormal Pap N Date of Last Mammogram Flow Moderate Date of LMP 12/03/2023 On BCP's at Conception? N N Was last menstrual period normal Y STIs/STDs N HPV Vaccine N Duration of Flow (days) 3 Current Control Method Frequency of Cycle (Q days) 28 Sexually Active? Y Date of DEXA bone scan Age of first menstrual cycle 16 Date of Last Pap Smear 02/04/2024 Sexual Problems? N Desired Control Method N/A LMP Definite N Obstetrics History GPAL:G 6 P 0 1 4 1 Type Value Spontaneous 4 Premature 1 Living 1 Total 6 Past Encounters Encounter ID Performer Location Encounter Start Date Encounter Closed Date Diagnosis/Indication Diagnosis SNOMED-CT Code Diagnosis ICD10 Code Diagnosis Note [id number] [facility] [place] [address] [address] 07/14/2024 15:46:53 07/15/2024 11:32:25 Twin [id number] O30.[id number] [facility] [place] [address] [address] 07/14/2024 15:47:40 07/17/2024 00:24:18 Gestation period, 32 weeks 0358381 Z3A.32 Dichorioni c diamniotic twin [id number] O30.043 [id number] Ralph Rosales MD [place] [address],[place] [address] 07/19/2024 14:53:53 07/19/2024 16:07:49 Dichorionic diamniotic twin [id number] O30.043 O24.410 Z3A.32 [id number] [facility] [address],[place] [address] 07/19/2024 14:54:12 07/21/2024 03:55:08 Dichorionic diamniotic twin [id number] O30.043 [id number] [facility] [address],[place] [address] 07/19/2024 14:54:34 07/20/2024 07:38:39 Gestation period, 32 weeks 9302615 Z3A.32 [id number] [facility] [address],[place] [address] 07/26/2024 15:29:41 07/27/2024 11:02:08 Dichorionic diamniotic tw
--- OUTSIDE RECORDS SUMMARY | 2024-08-03 06:09 | XMS_ITS | Data Portability ---
Author Organization [facility] [place] Address [address] [place] [address] Assessment Encounter Date Assessment Date Assessment LastModified by Organization Details LastModified Time 07/26/2024 07/26/2024 Patient is _33__weeks . Discussed plan. Not available 07/26/2024 17:17:11 Plan of Treatment Reminders Order Date Submit [...] available OB ROUTINE 2024 05:00P M Yamila Statongle, CNM Not available Not available Not available Lab None recorde d. Referral None recorde d. Procedures None recorde d. Surgeries None recorde d. Imaging US, obstetr ic, biophys ical profile + non-str ess test 2024 [address], [address], [place], [address], 08/02/2024 21:18:15 US, obstetr ic, biophys ical profile + non-str ess test [address]24 [address], [address], [place], [address], 08/02/2024 21:18:15 non-str ess test 2024 025 [email or web address] [place], [address], [place], [address], 08/03/2024 02:03:15 US, obstetr ic, biophys ical profile + non-str ess test [address]24 [address], [address], [place], [address], 07/26/2024 19:59:23 US, obstetr ic, biophys ical profile + non-str ess test 2024 [address], [address], [place], [address], 07/26/2024 19:59:23 non-str ess test 2024 025 [email or web address] [place], [address], [address], [place], [address], 07/27/2024 11:02:08 Medication Orders metroni dazole 500 mg tablet 2024 025 [id number], [address], [place], [place], [id number], 07/26/2024 17:17:36 Patient TargetsNo targets recorded. Patient InstructionsNo instructions recorded. Reason for Referral None Reported. Results Created Date Observation Date Name Description Value Unit Range Abnormal Flag Note LastModifiedBy Organization Detail LastModifiedTime 07/15/1907/14/2024 non-s tress test No observ ation record ed. [address] [facility], [place], [address], 07/17/2024 13:46:40 07/15/1907/14/2024 non-s tress test No observ ation record ed. [place] [address], [place], [address], 07/14/2024 17:49:59 07/15/19 25 07/14/2024 non-s tress test No observ ation record ed. [place] [address], [place], [address], 07/14/2024 17:54:22 07/20/19 25 06/16/2024 US, obste tric, follo w-up No observ ation record ed. [email or web address] [address], [place], [address], 07/19/2024 22:12:21 07/20/19 25 07/19/2024 US, obste tric, follo w-up No observ ation record ed. [facility] [address], [place], [address], 07/19/2024 18:23:21 07/20/19 25 07/19/2024 US, obste tric, follo w-up No observ ation record ed. [facility] [address], [place], [address], 07/19/2024 18:23:30 07/20/19 25 07/19/2024 US, obste tric, bioph ysica l profi le + non-s tress test No observ ation record ed. [facility] [address], [place], [address], 07/19/2024 18:23:40 07/20/19 25 07/19/2024 US, obste tric, follo w-up No observ ation record ed. [address] [facility], [place], [address], 07/21/2024 12:53:44 07/21/19 25 07/19/2024 non-s tress test No observ ation record ed. [email or web address] [place] [address], [place], [address], 07/20/2024 19:59:05 07/27/19 25 07/26/2024 US, obste tric, bioph ysica l profi le + non-s tress test No observ ation record ed. [email or web address] [place] [address], [place], [address], 07/26/2024 17:25:46 07/27/19 25 07/26/2024 US, obste tric, bioph ysica l profi le + non-s tress test No observ ation record ed. [email or web address] [place] [address], [place], [address], 07/26/2024 17:25:56 07/27/19 25 07/26/2024 US, obste tric, follo w-up No observ ation record ed. [email or web address] [address], [place], [address], 07/27/2024 08:51:55 07/27/19 25 07/26/2024 non-s tress test No observ ation record ed. [email or web address] [place] [address], [place], [address], 07/26/2024 20:17:32 07/27/19 25 07/26/2024 non-s tress test No observ ation record ed. [email or web address] [place] [address], [place], [address], 07/26/2024 22:03:57 08/03/19 25 08/02/2024 US, obste tric, bioph ysica l profi le + non-s tress test No observ ation record ed. [email or web address] [place] [address], [place], [address], 08/02/2024 18:16:02 08/03/19 25 08/02/2024 US, obste tric, bioph ysica l profi le + non-s tress test No observ ation record ed. [email or web address] [place] [address], [place], [address], 08/02/2024 18:16:11 08/03/19 25 08/02/2024 US, obste tric, bioph ysica l profi le + non-s tress test No observ ation record ed. [email or web address] [address], [place], [address], 08/02/2024 22:02:42 08/03/19 25 08/02/2024 non-s tress test No observ ation record ed. [email or web address] [place] [address], [place], [address], 08/02/2024 20:19:36 08/03/19 25 08/02/2024 non-s tress test No observ ation record ed. [email or web address] [place] [address], [place], [address], 08/02/2024 20:21:22 08/03/19 25 07/19/2024 non-s tress test No observ ation record ed. [email or web address] Not Available 08/02 20:49:35 Result Notes None recorded. Problems Name Problem SNOMED Code Status Onset Date Resolution Date Notes Provider Name and Address Organization Details Recorded Time Pregnanc y 04724825 Completed 202207/29/2023 Tonja campos, [facility] 4 15:05:38 Past pregnanc y history of miscarri age 430020761 Completed x 4, start ASA Katheryn Nuñez [facility] 4 11:39:35 Acid reflux 426343223 Completed Katheryn Nuñez [facility] 4 11:39:35 Obesity 991461613 Completed 34 wk antenata l testing Katheryn Nuñez [facility] 4 11:39:34 COVID-19 504681186 Completed 2022 asa , serial growth Katheryn Nuñez [facility] 4 11:39:35 Placenta previa 37648560 Completed resolved 06/30 Katheryn Nueñz [facility] 4 11:39:35 Low lying placenta 230051329 Completed Katheryn Nuñez [facility] 4 11:39:35 History of SARS-CoV -2 6740435312 52691835 Active 2023 Covid 02/2023 Negrita Ortiz null, [facility] 4 17:48:26 Pregnanc y 20216586 Active 2023 Tonja Mosqueda null, [facility] 4 15:05:38 Dichorio juan diamniot ic twin pregnanc y 988398369 Active [facility] 03/30/24 US /CL 04/13 [facility] 04/27 & 05/04 Delivery is recommen ded around 38 weeks for uncompli cated di/di twins Sana Gloria null, [facility] 5 16:27:55 Dichorio juan diamniot ic twin pregnanc y 324202269 Active [facility] 03/30/24 US /CL 04/13 US only schedule d for [facility] 04/27 & 05/04 Delivery is recommen ded around 38 weeks for uncompli cated di/di twins Sana Gloria null, [facility] 5 16:27:55 Past pregnanc y history of placenta l abruptio n 857304846 Active 33W6D Sana Gloria null, [facility] 5 14:02:58 Obesity 360252298 Active BMI >40 weekly testing @34wks Sana Gloria null, [facility] 5 16:26:11 Past pregnanc y history of multiple miscarri ages Active [address] CN[facility] [address], [place], [address], [facility] 5 17:02:37 Short cervical length in pregnanc y 294746792 Active 05/04 [facility] CL 1.28 admitted for eval & cercalge placemen t 21w6d Per Dr Sedrick campos [facility] 5 18:01:55 Short cervical length in pregnanc y 421695410 Active 05/04 [facility] CL 1.28 admitted for eval & cercalge placemen t 21w6d Per Dr Sedrick campos, [facility] 5 18:01:55 Gestatio nal diabetes mellitus 27455698 Active BS QID, Serial growth us DT referral faxed to [facility] 06/23 sched 06/28- DT cancelle d no coverage for insuranc Mazin campos [facility] 5 13:47:58 Gestatio nal diabetes mellitus 38822362 Active BS QID, Serial growth us DT referral faxed to [facility] 06/23 sched 06/28- DT cancelle d no coverage for insuranc Mazin campos, [facility] 5 13:47:58 Problem Notes None recorded. Procedures Surgical History Date Name Laterality Status Provider Name and Address Organization Details Recorded Time 05/05/19 25 cerclage completed Negrita Ortiz [facility] 05/19/2024 16:58:05 02/04/20 24 Date of Last Pap Smear completed Negrita Ortiz [facility] 02/04/2024 12:47:09 10/02/19 23 DILATION & CURETTAGE (SURG) completed Ginger Mistry [facility] 10/02/2022 10:47:21 03/22/19 19 Tonsillectomy completed Negrita Ortiz [facility] 09/10/2022 17:23:24 Imaging Results Imaging Date Name Status LastModified by Organiz ation Details LastModified Time 07/14/2024 non-stress test completed [place] [address], [place], [address], 07/17/2024 13:46:40 07/14/2024 non-stress test completed [email or web address] [place] [address] [address], [place], [address], 07/14/2024 17:49:59 07/14/2024 non-stress test completed [email or web address] [place] [address], [place], [address], 07/14/2024 17:54:22 06/16/2024 US, obstetric, follow-up completed [email or web address] [address], [place], [address], 07/19/2024 22:12:21 07/19/2024 US, obstetric, follow-up completed [facility] [address], [place], [address], 07/19/2024 18:23:21 07/19/2024 US, obstetric, follow-up completed [place] [address], [place], [address], 07/19/2024 18:23:30 07/19/2024 US, obstetric, biophysical profile + non-stress test completed [facility] [address], [place], [address], 07/19/2024 18:23:40 07/19/2024 US, obstetric, follow-up completed [email or web address] [address], [place], [address], 07/21/2024 12:53:44 07/19/2024 non-stress test completed [email or web address] [place] [address] [address], [place], [address], 07/20/2024 19:59:05 07/26/2024 US, obstetric, biophysical profile + non-stress test completed [address], [place], [address], 07/26/2024 17:25:46 07/26/2024 US, obstetric, biophysical profile + non-stress test completed [email or web address] [place] [address], [place], [address], 07/26/2024 17:25:56 07/26/2024 US, obstetric, follow-up completed [email or web address] [address], [place], [address], 07/27/2024 08:51:55 07/26/2024 non-stress test completed [address], [place], [address], 07/26/2024 20:17:32 07/26/2024 non-stress test completed [address], [place], [address], 07/26/2024 22:03:57 08/02/2024 US, obstetric, biophysical profile + non-stress test completed [email or web address] [place] [address], [place], [address], 08/02/2024 18:16:02 08/02/2024 US, obstetric, biophysical profile + non-stress test completed [email or web address] [place] [address], [place], [address], 08/02/2024 18:16:11 08/02/2024 US, obstetric, biophysical profile + non-stress test active [email or web address] [address], [place], [address], 08/02/2024 22:02:42 08/02/2024 non-stress test completed [email or web address] [place] [address], [place], [address], 08/02/2024 20:19:36 08/02/2024 non-stress test completed [email or web address] [place] [address], [place], [address], 08/02/2024 20:21:22 07/19/2024 non-stress test completed [email or web address] Informati on not available 08/02/2024 20:49:35 Procedure Notes None recorded. Medical Equipment None [...] No t Available Vitals Date Recorded Body weight Body mass index (BMI) Body height Body weight Body mass index (BMI) Body height Systolic blood pressure Diastolic blood pressure Systolic blood pressure Diastolic blood pressure Provider Name and Address Organization Details Last Updated DateTime 5 91389.6 2059 g 40.4 kg/m2 152.4 cm 15690.6 2059 g 40.4 kg/m2 152.4 cm 117 mm[Hg] 75 mm[Hg] 117 mm[Hg] 75 mm[Hg] Negrita Ortiz [facility] 5 20:13:28 Date Recorded Body height Body mass index (BMI) Body weight Systolic blood pressure Diastolic blood pressure Provider Name and Address Organization Details Last Updated DateTime 08/02/2024 152.4 cm 40.6 kg/m2 57687.21 g 118 mm[Hg] 77 mm[Hg] Negrita Ortiz [facility] 5 20:18:04 Social History Question Answer Notes LastModified by Organizat ion Details LastModified Time Tobacco Smoking Status Never Smoker Dipika Tierney [facility] 03/31/2023 16:36:40 Do You Have An Advance Directive? No Information n ot available 10/03/2021 If You Are , What Was Your Level Of Alcohol Consumption Prior To ? Occasional Information not available 03/31/2023 How Many Years [...] Or The Highest Degree You Have Received? [id number] Information not available 10/03/2021 Are There Any [...] Have Difficulty Walking Or Climbing Stairs? No [email or web address] Information not available 03/31/2023 Sex: Unknown Functional Status Question Answer Note LastModified by Organizat ion Details LastModified Time Do you use any illicit or recreational drugs? No Information not available 10/03/2021 What is your level of alcohol consumption? None Information not available 02/10/2023 Are you able to walk? YESWOREST Information not available 10/03/2021 Are you able to care for yourself? 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 No Information not available 03/31/2023 What is your exercise level? Moderate Information not available 10/03/2021 Mental Status Question Answer Note LastModified by Organization D etails LastModified Time Do you feel stressed (tense, restless, nervous, or anxious, or unable to sleep at night)? [id number] Information not available 10/03/2021 Family History Relationship Description Onset Age of this Age Resolved Age Notes LastModified by Organization Details LastModified Time Maternal Grandmother Diabetes mellitus [email or web address] Not available 05/25 10:41:48 Father Hypercholest erolemia [email or web address] Not available 05/25 10:41:48 Medical History Condition Response Allergies (Food, seasonal, environmental ) Y Other N Blood Transfusion N Drug/Latex Allergies/Reactions N Breast Cancer N Dermatologic Disorders N Lung Disease N [...] SNOMED-CT Code Diagnosis ICD10 Code Diagnosis Note [id number] Ralph Rosales MD [place] [address] [address] 10/03/2021 10:13:13 10/03/2021 12:15:16 Gynecologic examination 88111515 Z01.419 Annual gynecologi srinivas exam performed. Patient will come back in a year unless there are new symptoms. Suggest Calcium with Vitamin D if not eating in diet. Patient advised to get annual flu shot. Recommend yearly physicals and preform monthly breast exams. Genetic testing is available for patients with family history of cancer. Engage in safe sexual practices, use condoms. Encouraged to have daily exercise. Avoid tobacco and illicit drugs, moderation of alcohol. If BMI greater than 25 dietary consult advised. If you have any questions please call or email. Pap - today Recurrent miscarriage 10 8345402 [id number] [id number] Ralph Rosales MD [place] [address] [address] 10/07/2022 17:47:07 10/07/2022 18:30:59 Missed miscarriage 58456158 O02.1 Gynecologi c examination 75376093 Z01.419 Annual gynecologi srinivas exam performed. Patient will com [id number]|2024-08-03 06:09:00|2024-08-03 06:08:00|XMS_ITS|CJ MENDENHALL|External Medical Summaries|[id number]|" Clinical Summary Created on: August 03, 2024 Enrique Moon : 1995 Sex: Female Author Organization [facility] Address [address] [place] [address] Care Team Providers Care Senior Branch Manager Name Role Phone Unavailable Primary Care Provider Unavailabl e Source Comments [facility],non-owned Affiliates and Associated Physician Practices is amultiple site organization consisting of ambulatory clinics and hospital sitesin [place], [place], [place] and [place]. This disclosure is being madepursuant to the Care Everywhere program and may not contain all information available regarding this patient. Last updated 17.[facility] Allergies No known active allergies Medications * [...] and heating? Not hard at all 06/28/2023 [facility] [place] [facility] Occupat ional Health - Occupational Stress [...] place to sleep or slept in a fpc (including now)? No 06/28/2023 Comments No Sex [...] - 19+ 3-dose series) 2016 COVID-19 VACCINE (4 - season) 2023 03/19/2021, 08/29/2020, 08/08/2020 DEPRESSION SCREENING [...] Group B GREG 07/02/2023 1:07 PM CDT [facility] Microbiology MISCELLANEOUS SAMPLES / Unknown Collection / Unknown 06/28/2023 5:07 PM CDT 06/28/2023 5:11 PM CDT Nissa Kebede MD LAB - MICROBIOLOGY ORDERABL ES Final Result [facility] [address] [place] [address], [facility] [phone] from Last 3 Months or Most Recently Relevant to Health Maintenance Insurance [employer] NO INSURANCE Member Subscriber Plan / Payer (Ef fective for All Dates) Name:Sarai Enrique Member ID:Not on file Relation to Subscriber:Not on file Name:SARAIENRIQUE Subscriber ID:Not on file Address: [address] [place] [address] Payer ID:Not on file Group ID:Not on file Type:Self Pay Address: [place], [place] [employer] S[employer] NO INSURANCE Member Subscriber Plan / Payer (Ef fective for All Dates) Name:Enrique Moon Member ID:Not on file Relation to Subscriber:Not on file Name:ENRIQUE MOON Subscriber ID:Not on file Address: [address] [place] [address] Payer ID:Not on file Group ID:Not on file Type:Self Pay Address: [place], [place] CARE SELF PAY NO INSURANCE Member Subscriber Plan / Payer (Ef fective for All Dates) Name:Enrique Moon Member ID:Not on file Relation to Subscriber:Not on file Name:ERNIQUE MOON Subscriber ID:Not on file Address: [address] [place] [address] Payer ID:Not on file Group ID:Not on file Type:Self Pay Address: [place], [place] Advance Directives * Full Code (Latest Code Status on File) Date Activated Date Inactivated Comments 06/28/2023 3:55 PM 06/30/2023 2:32 PM "
--- NOTE | 2024-08-03 06:39 | LDADM ---
This patient, Edilma Moon, was admitted to Labor/Delivery/Recovery 105 on 08/03/24 at 06:03. Plans for labor, pain management and were discussed with patient. Patient/family oriented to hospital policies and general routines including ID bracelet, bed and alarms, visiting hours, pain management, procedures, bathroom and other care routines, personal items, smoking policy, room service/diet and guest tray routines, infant security routines, and visiting hours. Patient/Family are encouraged to report perceived risks to care and to ask questions if they do not understand what they are told or what they should do. See OBIX for further documentation.
[2024-08-03] MEDS: TERBUTALINE SULFATE 1 MG/ML VIAL 0.25 MG SUB-Q (07:14)
[2024-08-03] MEDS: LACTATED RINGERS 1,000 ML 999 ML IV CONT (07:45)
[2024-08-03 08:02] LABS: Glucose Point of Care 113 mg/dl (65-105)
--- NOTE | 2024-08-03 08:44 | P.HP_ITS ---
H&P: HPI History of Present Illness Date/Time: 08/03/24 08:44 Chief Complaint: pt presents to labor and delivery with increasing contractions. , currently with a di/di twin at 34.6 weeks. has been complicated by shortened cervix with a cerclage placed by [facility], complicated with a history of vaginal delivery at 33.6 weeks with placental abruption, obesity, and hx frequent miscarriage,. FHR category 1 x2, contractions every 2-3 minutes, terbutaline administered. Review of Systems Review of Systems: All systems reviewed & are unremarkable except as noted in HPI and below PMFSH Past Medical History Medical History Morbid obesity Social History Social History Smoking status: Never smoker Alcohol intake: current Drinks per week: 3 Alcohol use details: WHEN NOT Substance use: never Substance use type: does not use Do You Feel Safe in your Home?: Yes Lack of Transportation: No Lack of Food: Never True Current Housing: I Have Housing Concerned About Future Housing: No Difficulty Paying Gas/Electric Bills: No Difficulty Paying for Meds: No Currently Unemployed: No Education: Trade/Vocational Certificate Difficulty w/ Childcare or Family Care: No Living arrangements: with family Spiritual care concerns: No Meds Home Medications and Allergies Home Medications Medication Instructions Recorded Confirmed Type vit no.133-ferrous 1 tablet PO DAILY 06/26/23 06/28/23 History fumarate 28 mg-folic acid 800 mcg tablet () nitrofurantoin 100 mg PO Q12H #10 caps 07/04/23 Rx monohydrate/macrocrystals 100 mg capsule (Macrobid) nitrofurantoin 100 mg PO Q12H 5 days #10 caps 01/28/24 Rx monohydrate/macrocrystals 100 mg capsule Allergies Allergy/AdvReac Type Severity Reaction Status Date / Time No Known Allergies Allergy Verified 06/28/23 04:11 Vital Signs Vital Signs - 24 hr 08/03/24 06:30 08/03/24 06:38 08/03/24 06:44 Pulse Rate 84 73 Blood Pressure 116/72 117/76 Pulse Oximetry Oxygen Delivery Room Air 08/03/24 06:46 08/03/24 07:00 08/03/24 07:15 Pulse Rate 81 76 77 Blood Pressure 118/68 118/68 115/78 Pulse Oximetry Oxygen Delivery 08/03/24 07:31 08/03/24 07:36 08/03/24 07:41 Pulse Rate Blood Pressure Pulse Oximetry 97 97 96 Oxygen Delivery 08/03/24 07:45 08/03/24 07:46 08/03/24 07:51 Pulse Rate Blood Pressure 121/106 H Pulse Oximetry 95 96 Oxygen Delivery 08/03/24 08:00 08/03/24 08:15 08/03/24 08:20 Pulse Rate 97 Blood Pressure 132/71 Pulse Oximetry 100 100 Oxygen Delivery 08/03/24 08:25 08/03/24 08:30 08/03/24 08:35 Pulse Rate 99 Blood Pressure 130/72 Pulse Oximetry 100 100 100 Oxygen Delivery 08/03/24 08:40 Pulse Rate Blood Pressure Pulse Oximetry 100 Oxygen Delivery Exam Const: General: cooperative and healthy appearing Nutritional Appearance: average body habitus Neck: Neck: normal visual inspection Chest: Chest palpation & inspection: normal inspection of the chest Resp: Effort & Inspection: normal respiratory effort Cardio: Rate: regular rate Rhythm: regular rhythm GI: Other: soft/gravid : Other: see procedure note SVE 1/60/-2 Back/Spine/Pelvis: Back: no CVA tenderness Skin: General skin exam: normal color and no rashes or lesions noted Neuro: General: oriented to person, oriented to place, oriented to time and patient oriented x3 Extrem: General: normal to inspection Psych: Appearance: grossly normal Assessment and Plan Assessment and plan (1) Dichorionic diamniotic twin : Code(s): O30.049 - Twin , dichorionic/diamniotic, unspecified trimester Status: Acute Plan di/di twin gestation at 34.6 weeks gestation cerclage removed plan procardia 60mgXL continue to observe
--- NOTE | 2024-08-03 08:52 | P.HP_ITS ---
H&P: HPI History of Present Illness Date/Time: 08/03/24 08:52 Chief Complaint: copy [facility] Past Medical History Medical History Morbid obesity Social History Social History Smoking status: Never smoker Alcohol intake: current Drinks per week: 3 Alcohol use details: WHEN NOT Substance use: never Substance use type: does not use Do You Feel Safe in your Home?: Yes Lack of Transportation: No Lack of Food: Never True Current Housing: I Have Housing Concerned About Future Housing: No Difficulty Paying Gas/Electric Bills: No Difficulty Paying for Meds: No Currently Unemployed: No Education: Trade/Vocational Certificate Difficulty w/ Childcare or Family Care: No Living arrangements: with family Spiritual care concerns: No Meds Home Medications and Allergies Home Medications Medication Instructions Recorded Confirmed Type vit no.133-ferrous 1 tablet PO DAILY 06/26/23 06/28/23 History fumarate 28 mg-folic acid 800 mcg tablet () nitrofurantoin 100 mg PO Q12H #10 caps 07/04/23 Rx monohydrate/macrocrystals 100 mg capsule (Macrobid) nitrofurantoin 100 mg PO Q12H 5 days #10 caps 01/28/24 Rx monohydrate/macrocrystals 100 mg capsule nifedipine 30 mg tablet,extended 30 mg PO DAILY #30 tabs 08/03/24 Rx release 24 hr (Procardia XL) Allergies Allergy/AdvReac Type Severity Reaction Status Date / Time No Known Allergies Allergy Verified 06/28/23 04:11 Vital Signs Vital Signs - 24 hr 08/03/24 06:30 08/03/24 06:38 08/03/24 06:44 Pulse Rate 84 73 Blood Pressure 116/72 117/76 Pulse Oximetry Oxygen Delivery Room Air 08/03/24 06:46 08/03/24 07:00 08/03/24 07:15 Pulse Rate 81 76 77 Blood Pressure 118/68 118/68 115/78 Pulse Oximetry Oxygen Delivery 08/03/24 07:31 08/03/24 07:36 08/03/24 07:41 Pulse Rate Blood Pressure Pulse Oximetry 97 97 96 Oxygen Delivery 08/03/24 07:45 08/03/24 07:46 08/03/24 07:51 Pulse Rate Blood Pressure 121/106 H Pulse Oximetry 95 96 Oxygen Delivery 08/03/24 08:00 08/03/24 08:15 08/03/24 08:20 Pulse Rate 97 Blood Pressure 132/71 Pulse Oximetry 100 100 Oxygen Delivery 08/03/24 08:25 08/03/24 08:30 08/03/24 08:35 Pulse Rate 99 Blood Pressure 130/72 Pulse Oximetry 100 100 100 Oxygen Delivery 08/03/24 08:40 Pulse Rate Blood Pressure Pulse Oximetry 100 Oxygen Delivery
[2024-08-03] MEDS: ACETAMINOPHEN 325 MG TABLET 650 MG PO (08:56)
[2024-08-03] MEDS: NIFEdipine 30 MG TAB.ER.24 60 MG PO (08:57)
--- OUTSIDE RECORDS SUMMARY | 2024-08-03 14:26 | XMS_ITS | Clinical Summary ---
Author Organization [facility] Address [address] [place] [address] Care Team Providers Care Geoscience Specialist Name Role Phone Unavailable Primary Care Provider Unavailabl e Source Comments [facility],non-owned Affiliates and Associated Physician Practices is amultiple site organization consisting of ambulatory clinics and hospital sitesin [place], [place] and [place]. This disclosure is being madepursuant to the Care Everywhere program and may not contain all information available regarding this patient. Last updated 17.[facility] Allergies No known active allergies Medications * [...] and heating? Not hard at all 06/28/2023 [facility] - Occupational Stress [...] place to sleep or slept in a correction (including now)? No 06/28/2023 Comments No Sex [...] Group B GREG 07/02/2023 1:07 PM CDT [facility] MICROBIOLOGY Microbiology MISCELLANEOUS SAMPLES / Unknown Collection / Unknown 06/28/2023 5:07 PM CDT 06/28/2023 5:11 PM CDT us Nissa Kebede MD LAB - MICROBIOLOGY ORDERABL ES Final Result [facility] MICROBIOLOGY [address] [place] [address], [facility] [phone] from Last 3 Months or Most Recently Relevant to Health Maintenance Insurance [employer] Member Subscriber Plan / Payer (Ef fective 2022-Present) Name:Enrique Dietz Relation to Subscriber:Self Name:Enrique Dietz Payer ID:[id number] (NAIC) Type:Commercial Address: [place] [id number] [facility] SELF PAY NO INSURANCE Member Subscriber Plan / Payer (Ef fective for All Dates) Name:Enrique Dietz Member ID:Not on file Relation to Subscriber:Not on file Name:ENRIQUE DIETZ Subscriber ID:Not on file Address: [address] Payer ID:Not on file Group ID:Not on file Type:Self Pay Address: [place], [place] SELF PAY NO INSURANCE Member Subscriber Plan / Payer (Ef fective for All Dates) Name:Enrique Dietz Member ID:Not on file Relation to Subscriber:Not on file Name:RUMAJUAN PABLOENRIQUE JIMENEZ Subscriber ID:Not on file Address: [address] [place] [id number] Payer ID:Not on file Group ID:Not on file Type:Self Pay Address: [place], [place] [facility] SELF PAY NO INSURANCE Member Subscriber Plan / Payer (Ef fective for All Dates) Name:Enrique Dietz Member ID:Not on file Relation to Subscriber:Not on file Name:RUMAJUAN PABLOENRIQUE JIMENEZ Subscriber ID:Not on file Address: [address] [place] [id number] Payer ID:Not on file Group ID:Not on file Type:Self Pay Address: [place], [place] Advance Directives * Full Code (Latest Code Status on File) Date Activated Date Inactivated Comments 06/28/2023 3:55 PM 06/30/2023 2:32 PM
--- OUTSIDE RECORDS SUMMARY | 2024-08-03 14:27 | XMS_ITS | Clinical Summary ---
Author Organization [facility] Address [address] [place] [address] Phone Care Team Providers Care Improvement Leader Name Role Phone Unavailable Primary Care Provider Unavailabl e Allergies No known active allergies Medications vits15/iron/fol ic/dss ( VIT 68-PCAR-POFPA-D SS ORAL) Take by mouth. Active aspirin (ECOTRIN EC) 81 mg Tablet, Delayed Release (E.C.) Take 1 Tablet (81 mg) by mouth daily. 60 Tablet 3 03/07/2024 Active indomethacin (INDOCIN) 25 mg capsule Take 1 Capsule (25 mg) by mouth every 4 hours. 6 Capsule 05/05/2024 10:10 AM HOSTESS CASHIER 05/05/2024 Active ferrous fumarate (FERRETTS) 325 mg [...] Description 06/28/2024 11:30 AM CDT Video Visit [facility] Maternal Medicine [address] [place] [address] Sofia Goddard MD Obesity affecting [...] Sex Assigned at Female 02/07/2024 7:23 PM HOSTESS CASHIER Legal Sex Female 2:26 PM HOSTESS CASHIER Gender Identity Female 02/07/2024 7:23 PM HOSTESS CASHIER Sexual Orientation Not on file Last Filed Vital Signs Vital Sign Reading Time Taken Comments Blood Pressure 112/61 05/05/2024 12:30 PM HOSTESS CASHIER Pulse 88 05/05/2024 11:15 AM HOSTESS CASHIER Temperature 36.6 C (97.9 F) 05/05/2024 12:30 PM HOSTESS CASHIER Respiratory Rate 18 05/05/2024 12:30 PM HOSTESS CASHIER Oxygen Saturation 100% 05/05/2024 11:15 AM HOSTESS CASHIER Inhaled Oxygen Concentration - - Weight 95.7 kg (211 lb) 06/28/2024 11:25 AM CDT Height 152.4 cm (5') 06/28/2024 11:25 AM CDT Body Mass Index 41.21 06/28/2024 11:25 AM CDT Plan of Treatment Upcoming Encounters Date Type Department Care Team (Late st Contact Info) Description 09/08/2024 Hospital Encounter [facility] Labor & [address] [place] [address] Rena Dubose MD [address] [facility] [address] [place] [address] Health Maintenance Due Date Last [...] Diagnosis Comments TELEMETRY REPORT 05/10/2024 2:20 PM HOSTESS CASHIER from Last 3 Months Results * TELEMETRY REPORT (05/10/2024 2:20 PM HOSTESS CASHIER) us Provider Scanning ECG ORDERABLES Final Result from Last 3 Months Insurance [facility] [id number] [employer] Member Subscriber Plan / Payer (Ef fective 2024-Present) Name:Edilma Moon Relation to Subscriber:Not on file Name:Edilma Moon Subscriber ID:Not on file Date of :1995 Payer ID:Not on file Group ID:[id number] Type:RX Commercial Address: [place] Advance Directives For more information, please contact: [phone] * Full Code (Latest Code Status on File) Date Activated Date Inactivated Comments 05/04/2024 4:49 PM 05/05/2024 3:09 PM
--- OUTSIDE RECORDS SUMMARY | 2024-08-03 14:27 | XMS_ITS | Referral Summary ---
Author Organization [facility] Address [address] [place] [address] Care Team Providers Care Software Development Coordinator Name Role Phone Jace Barrera MD Primary Care Provider [phone] Allergies No known active allergies Medications cholecalciferol , vitamin D3, 1,000 unit tablet,chewable Take 1 tablet/chew tab by mouth daily Active -kxhv -gwhygn2-gp-gra 1.5 mg iron- 8.73 mg-6.4 mg capsule,IR [...] 11/20 Assessment & Plan (01/24/2023 11:17 PM FRENCH FOLDER): Patient is encouraged to lose weight with a combination of caloric reduction and increased exercise. Various strategies discussed. The long-term risks associated with continued morbid obesity discussed. Fatigue 06/21/2020 Assessment & Plan (10/14/2020 10:56 PM CDT): Increase vitamin-D supplementation and check level in 4 months. B12 and TSH normal Vitamin D deficiency 06/21/2020 Assessment & Plan (01/24/2023 11:17 PM FRENCH FOLDER): Continue vitamin-D supplementation check level in 1 [...] 10/21/2018 Assessment & Plan (04/18/2019 8:46 AM FRENCH FOLDER): Currently resolved and restart PPI as needed. Assessment & Plan (10/21/2018 2:45 PM CDT): Increase Ranitidine to 300 mg at bedtime every day. Recommend Tonsillectomy Recurrent tonsillitis 10/04/2018 Assessment & Plan (10/05/2018 3:53 PM CDT): Take Augmentin with a meal, have a Probiotic at a different meal (4 hours in between) [place] screen - call with results Follow up in 4-6 weeks If no improvement, consider Tonsillectomy Good hydration Adequate sleep 7-8 hours Idiopathic scoliosis 04/12/2018 Overview (04/12/2018): 2015 Healthcare maintenance 04/12/2018 Assessment & Plan (01/24/2023 11:16 PM FRENCH FOLDER): Flu shot each December. Tetanus booster every 10 years. Follow-up the customer operations representative for breast exam and pelvic exam as [...] needed. Assessment & Plan (04/18/2019 8:46 AM FRENCH FOLDER): Flu shot each December. Tetanus booster every 10 years. Follow-up with the customer operations representative for breast exam and pelvic exam as they direct. Diet exercise for weight loss discussed. Will see her back in 1 year for physical and fasting lab sooner if needed. Assessment & Plan (04/12/2018 9:02 AM FRENCH FOLDER): Flu shot each December. Update her tetanus booster today. She should see her customer operations representative yearly for breast exam and pelvic exam [...] on file Legal Sex Female 6:13 PM FRENCH FOLDER Gender Identity Female 01/15/2021 8:48 PM CDT [...] of Treatment Not on file Insurance [employer] [facility] [employer] PLANS Address: [facility] [address] [place] [address] [facility] CHOICE PLUS CHOICE PLUS CHOICE PLUS Care Teams Software Development Coordinator Relationship Specialty Start Date End Date Jace Barrera MD [address] [address] PCP - General Internal Medicine 02/01/24
--- OUTSIDE RECORDS SUMMARY | 2024-08-03 14:27 | XMS_ITS | Clinical Summary ---
Author Organization [facility] Address [address] [place] [address] Care Team Providers Care Instrument Specialist Name Role Phone Jace Barrera MD Primary Care Provider [phone] Allergies No known active allergies Medications cholecalciferol , vitamin D3, 1,000 unit tablet,chewable Take 1 tablet/chew tab by mouth daily Active qakpawxx15-ldnc -gisdhv3-vo-wlm 1.5 mg iron- 8.73 mg-6.4 mg capsule,IR [...] 11/20 Assessment & Plan (01/24/2023 11:17 PM AUTOMOBILE GLASS TECHNICIAN): Patient is encouraged to lose weight with a combination of caloric reduction and increased exercise. Various strategies discussed. The long-term risks associated with continued morbid obesity discussed. Fatigue 06/21/2020 Assessment & Plan (10/14/2020 10:56 PM CDT): Increase vitamin-D supplementation and check level in 4 months. B12 and TSH normal Vitamin D deficiency 06/21/2020 Assessment & Plan (01/24/2023 11:17 PM AUTOMOBILE GLASS TECHNICIAN): Continue vitamin-D supplementation check level in 1 [...] 10/21/2018 Assessment & Plan (04/18/2019 8:46 AM AUTOMOBILE GLASS TECHNICIAN): Currently resolved and restart PPI as needed. Assessment & Plan (10/21/2018 2:45 PM CDT): Increase Ranitidine to 300 mg at bedtime every day. Recommend Tonsillectomy Recurrent tonsillitis 10/04/2018 Assessment & Plan (10/05/2018 3:53 PM CDT): Take Augmentin with a meal, have a Probiotic at a different meal (4 hours in between) [place] screen - call with results Follow up in 4-6 weeks If no improvement, consider Tonsillectomy Good hydration Adequate sleep 7-8 hours Idiopathic scoliosis 04/12/2018 Overview (04/12/2018): 2015 Healthcare maintenance 04/12/2018 Assessment & Plan (01/24/2023 11:16 PM AUTOMOBILE GLASS TECHNICIAN): Flu shot each December. Tetanus booster every 10 years. Follow-up the financial analysis manager for breast exam and pelvic exam as [...] needed. Assessment & Plan (04/18/2019 8:46 AM AUTOMOBILE GLASS TECHNICIAN): Flu shot each December. Tetanus booster every 10 years. Follow-up with the financial analysis manager for breast exam and pelvic exam as they direct. Diet exercise for weight loss discussed. Will see her back in 1 year for physical and fasting lab sooner if needed. Assessment & Plan (04/12/2018 9:02 AM AUTOMOBILE GLASS TECHNICIAN): Flu shot each December. Update her tetanus booster today. She should see her financial analysis manager yearly for breast exam and pelvic exam [...] on file Legal Sex Female 6:13 PM AUTOMOBILE GLASS TECHNICIAN Gender Identity Female 01/15/2021 8:48 PM CDT [...] patient's age to complete this topic Insurance [employer] [facility] CHOICE PLUS CHOICE PLUS CHOICE PLUS Care Teams Instrument Specialist Relationship Specialty Start Date End Date Jace Barrera MD [address] [address] PCP - General Internal Medicine 02/01/24
--- NOTE | 2024-08-04 07:25 | PM.OBTRLD ---
OB - Triage/Final Diagnosis Visit Information Date of evaluation: 08/03/24 Reason for evaluation: threatened labor Comments/Additional reasons for admission: I have assessed the risk for this patient, Edilma Moon, and determined that she would benefit from observation care. Evaluation Laboratory results: Laboratory Tests 08/03/24 07:53 POC Capillary Glucose 113 H Vital signs: Vital Signs - 24 hr 08/03/24 07:31 08/03/24 07:36 08/03/24 07:41 Pulse Rate Blood Pressure Pulse Oximetry 97 97 96 08/03/24 07:45 08/03/24 07:46 08/03/24 07:51 Pulse Rate Blood Pressure 121/106 H Pulse Oximetry 95 96 08/03/24 08:00 08/03/24 08:15 08/03/24 08:20 Pulse Rate 97 Blood Pressure 132/71 Pulse Oximetry 100 100 08/03/24 08:25 08/03/24 08:30 08/03/24 08:35 Pulse Rate 99 Blood Pressure 130/72 Pulse Oximetry 100 100 100 08/03/24 08:40 08/03/24 09:00 08/03/24 09:30 Pulse Rate 103 H 94 Blood Pressure 129/65 131/75 Pulse Oximetry 100 08/03/24 10:00 08/03/24 11:00 08/03/24 11:30 Pulse Rate 94 92 84 Blood Pressure 120/59 L 114/65 120/67 Pulse Oximetry 08/03/24 12:00 Pulse Rate 86 Blood Pressure 117/68 Pulse Oximetry
== END 2024-08-03 12:30 | disposition home or self-care (01) ==
PROVIDERS: Admitting Provider Obstetrics & Gynecology; Visit Provider Obstetrics & Gynecology
DX: O47.03 False labor before 37 completed weeks of gestation, third trimester (principal); O30.043 Twin pregnancy, dichorionic/diamniotic, third trimester; O26.873 Cervical shortening, third trimester; O99.213 Obesity complicating pregnancy, third trimester; E66.01 Morbid (severe) obesity due to excess calories; Z3A.34 34 weeks gestation of pregnancy
CPT/HCPCS: 82948; 96372; A9270; G0378; G0379; J3105; J7120

== ENCOUNTER 2024-08-04 23:03 | Observation (INO) | payer OTHER, SELFPAY ==
--- OUTSIDE RECORDS SUMMARY | 2024-08-04 23:09 | XMS_ITS | Continuity of Care Document ---
Author Organization [facility] Address [address] [place] [address] Assessment Encounter Date Assessment Date Assessment LastModified by Organization Details LastModified Time 08/04/2024 08/04/2024 Patient is _35__weeks . Discussed plan. Not available 08/04/2024 11:11:00 Plan of Treatment Reminders Order Date Submit Date Provider Last Modified By Organization Details Last Modified Time Details Appointments OB ROUTINE 2024 08:15A M Yamila Street CNM Not available Not available Not available NST 2024 08:30A M NST SCHEDULE Not available Not available Not available NST [...] recorde d. Surgeries None recorde d. Imaging None recorde d. Medication Orders None recorde d. Patient TargetsNo targets recorded. Patient InstructionsNo instructions recorded. Reason for Referral None Reported. Results Created Date Observation Date Name Description Value Unit Range Abnormal Flag Note LastModifiedBy Organization Detail LastModifiedTime 02/24/20 24 02/24/2024 US, obste tric, nucha l trans lucen cy No observ ation record ed. [facility] [address], [place], [address], 02/24/2024 17:03:07 02/24/20 24 02/24/2024 US, obste tric, nucha l trans lucen cy, addit ional gesta tion No observ ation record ed. [facility] [address], [place], [address], 02/24/2024 17:03:19 02/24/20 24 02/24/2024 US, obste tric, nucha l trans lucen cy No observ ation record ed. ron Kirkland [address], [place], [address], 02/24/2024 23:21:41 03/02/20 24 03/02/2024 US, obste tric, follo w-up No observ ation record ed. [address] [facility] [address] [facility], [place], [address], 03/10/2024 08:55:01 03/02/20 24 03/02/2024 US, obste tric, follo w-up No observ ation record ed. [email or web address] [facility] [place] [address], [place], [address], 03/03/2024 16:06:01 03/30/19 25 03/30/2024 US, obste tric, follo w-up No observ ation record ed. [address], [place], [address], 04/04/2024 18:35:23 04/03/19 25 03/30/2024 US, obste tric, follo w-up No observ ation record ed. [address], [place], [address], 04/05/2024 13:01:47 04/13/19 25 04/13/2024 US, obste tric, follo w-up No observ ation record ed. [address], [place], [address], 04/24/2024 23:07:26 04/20/19 25 04/20/2024 US, obste tric, follo w-up No observ ation record ed. [address] [facility] [place] [address] [facility], [place], [address], 04/28/2024 15:38:52 04/27/19 25 04/27/2024 US, obste tric, follo w-up No observ ation record ed. [address] [facility] [address], [place], [address], 05/15/2024 13:13:35 02/06/04/27/2024 US, obste tric, follo w-up No observ ation record ed. [email or web address] [facility] [place] [address], [place], [address], 05/02/2024 10:47:43 05/04/19 25 05/04/2024 US, obste tric, follo w-up No observ ation record ed. [email or web address] [facility] [place] [address] [facility], [place], [address], 05/15/2024 10:24:23 05/04/19 25 05/04/2024 US, obste tric, limit ed No observ ation record ed. [email or web address] [facility] [address] [facility], [place], [address], 05/08/2024 11:02:29 05/18/19 25 05/18/2024 US, obste tric, follo w-up No observ ation record ed. [email or web address] [facility] [address], [place], [address], 05/18/2024 18:38:54 05/18/19 25 05/18/2024 US, obste tric, follo w-up No observ ation record ed. [email or web address] [facility] [address], [place], [address], 05/18/2024 18:39:03 05/18/19 25 05/18/2024 US, obste tric, follo w-up No observ ation record ed. [email or web address] [address], [place], [address], 05/18/2024 21:37:42 06/17/19 25 06/16/2024 US, obste tric, follo w-up No observ ation record ed. [facility] [address], [place], [address], 06/16/2024 17:47:44 06/17/19 25 06/16/2024 US, obste tric, follo w-up No observ ation record ed. [email or web address] [address], [place], [address], 07/19/2024 15:43:51 07/15/19 25 07/14/2024 non-s tress test No observ ation record ed. [address], [place], [address], 07/17/2024 13:46:40 07/15/1907/14/2024 non-s tress test No observ ation record ed. [email or web address] [facility] [address], [place], [address], 07/14/2024 17:49:59 07/15/19 25 07/14/2024 non-s tress test No observ ation record ed. [email or web address] [facility] [address], [place], [address], 07/14/2024 17:54:22 07/20/19 25 06/16/2024 US, obste tric, follo w-up No observ ation record ed. [email or web address] [address], [place], [address], 07/19/2024 22:12:21 07/20/1907/19/2024 US, obste tric, follo w-up No observ ation record ed. [facility] [address], [place], [address], 07/19/2024 18:23:21 07/20/19 25 07/19/2024 US, obste tric, follo w-up No observ ation record ed. [facility] [address], [place], [address], 07/19/2024 18:23:30 07/20/19 25 07/19/2024 US, obste tric, bioph ysica l profi le + non-s tress test No observ ation record ed. [email or web address] [facility] [address], [place], [address], 07/19/2024 18:23:40 07/20/19 25 07/19/2024 US, obste tric, follo w-up No observ ation record ed. Mar[address], [place], [address], 07/21/2024 12:53:44 07/21/19 25 07/19/2024 non-s tress test No observ ation record ed. [email or web address] [facility] [address], [place], [address], 07/20/2024 19:59:05 07/27/19 25 07/26/2024 US, obste tric, bioph ysica l profi le + non-s tress test No observ ation record ed. [email or web address] [facility] [address], [place], [address], 07/26/2024 17:25:46 07/27/19 25 07/26/2024 US, obste tric, bioph ysica l profi le + non-s tress test No observ ation record ed. [email or web address] [facility] [address], [place], [address], 07/26/2024 17:25:56 07/27/19 25 07/26/2024 US, obste tric, follo w-up No observ ation record ed. Mar[address], [place], [address], 07/27/2024 08:51:55 07/27/19 25 07/26/2024 non-s tress test No observ ation record ed. [email or web address] [facility] [address], [place], [address], 07/26/2024 20:17:32 07/27/19 25 07/26/2024 non-s tress test No observ ation record ed. [email or web address] [facility] [address], [place], [address], 07/26/2024 22:03:57 08/03/19 25 08/02/2024 US, obste tric, bioph ysica l profi le + non-s tress test No observ ation record ed. [email or web address] [facility] [address], [place], [address], 08/02/2024 18:16:02 08/03/19 25 08/02/2024 US, obste tric, bioph ysica l profi le + non-s tress test No observ ation record ed. [email or web address] [facility] [address], [place], [address], 08/02/2024 18:16:11 08/03/19 25 08/02/2024 US, obste tric, follo w-up No observ ation record ed. [email or web address] [address] [facility], [place], [address], 08/03/2024 14:12:42 08/03/19 25 08/02/2024 non-s tress test No observ ation record ed. [email or web address] [facility] [address], [place], [address], 08/02/2024 20:19:36 08/03/19 25 08/02/2024 non-s tress test No observ ation record ed. [facility] [address], [place], [address], 08/02/2024 20:21:22 08/03/19 25 07/19/2024 non-s tress test No observ ation record ed. [email or web address] Not Available 08/02 20:49:35 08/05/19 25 08/04/2024 non-s tress test No observ ation record ed. [email or web address] [facility] [address], [place], [address], 08/04/2024 19:28:08 08/05/19 non-s tress test No observ ation record ed. [email or web address] [facility] [address], [place], [address], 08/04/2024 19:31:05 Result Notes None recorded. Problems Name Problem SNOMED Code Status Onset Date Resolution Date Notes Provider Name and Address Organization Details Recorded Time Pregnanc y 86992287 Completed 202207/29/2023 Tonja Mosqueda [facility], [facility] 4 15:05:38 Past pregnanc y history of miscarri age 305636111 Completed x 4, start ASA Katheryn Nuñez [facility] 4 11:39:35 Acid reflux 626937446 Completed Katheryn Nuñez [facility] 4 11:39:35 Obesity 625513098 Completed 34 wk antenata l testing Katheryn Nuñez [facility] 4 11:39:34 COVID-19 460087342 Completed 2022 asa , serial [facility] 11:39:35 Placenta previa 51399884 Completed resolved 06/30 [facility] 11:39:35 Low lying placenta 972949812 Completed Katheryn Nuñez null, [facility] 4 11:39:35 History of SARS-CoV -2 8254149607 55495137 Active 2023 Covid 02/2023 Negrita Ortiz null, [facility] 4 17:48:26 Pregnanc y 23490956 Active 2023 Tonja Mosqueda null, [facility] 4 15:05:38 Dichorio juan diamniot ic twin pregnanc y 808622687 Active [facility] 03/30/24 US /CL 04/13 US only schedule d for CL [facility] 04/27 & 05/04 Delivery is recommen ded around 38 weeks for uncompli cated di/di twins Sana Gloria null, [facility] 5 16:27:55 Dichorio juan diamniot ic twin pregnanc y 584141053 Active [facility] 03/30/24 US /CL 04/13 US only schedule d for CL [facility] 04/27 & 05/04 Delivery is recommen ded around 38 weeks for uncompli cated di/di twins Sana Gloria null, [facility] 5 16:27:55 Past pregnanc y history of placenta l abruptio n 331721783 Active 33W6D Sana Gloria null, [facility] 5 14:02:58 Obesity 790692130 Active BMI >40 weekly testing @34wks Sana Gloria null, [facility] 5 16:26:11 Past pregnanc y history of multiple miscarri ages Active [address] CNM [address], [place], [address], [place] [facility] 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 5 18:01:55 Gestatio nal diabetes mellitus 07465305 Active BS QID, Serial growth us DT referral faxed to [facility] 06/23 sched 06/28- DT cancelle d no coverage for insuranc Mazin campos [facility] 5 13:47:58 Gestatio nal diabetes mellitus 59345625 Active BS QID, Serial growth us DT referral faxed to [facility] 06/23 sched 06/28- DT cancelle d no coverage for insuranc Mazin campos [facility] 5 13:47:58 Problem Notes None recorded. Procedures Surgical History Date Name Laterality Status Provider Name and Address Organization Details Recorded Time 05/05/19 25 cerclage completed Negrita Ortiz [facility] 05/19/2024 16:58:05 02/04/20 24 Date of Last Pap Smear completed Negrita Ortiz [facility] 02/04/2024 12:47:09 10/02/19 23 DILATION & CURETTAGE (SURG) completed Ginger Mistry [facility] 10/02/2022 10:47:21 03/22/19 19 [facility]/10/2022 17:23:24 Imaging Results None recorded. Procedure Notes None recorded. Medical Equipment None [...] Body mass index (BMI) Body height Body height Body mass index (BMI) Body weight Systolic blood pressure Diastolic blood pressure Systolic blood pressure Diastolic blood pressure Provider Name and Address Organization Details Last Updated DateTime 5 06700.8 0533 g 40.8 kg/m2 152.4 cm 152.4 cm 40.8 kg/m2 05549.8 1 g 107 mm[Hg] 70 mm[Hg] 107 mm[Hg] 70 mm[Hg] Negrita Ortiz [facility] 5 19:26:37 Social History Question Answer Notes LastModified by Organizat ion Details LastModified Time Tobacco Smoking Status Never Smoker [facility] 03/31/2023 16:36:40 Do You Have An [...] Or The Highest Degree You Have Received? [id number] Information not available 10/03/2021 Are There Any Guns Present In Your Home? Yes Information not available 10/03/2021 Have You Ever Been Counseled For Unhealthy Alcohol Use? No [email or web address] Information not available 03/31/2023 Do You Use [...] Have Difficulty Walking Or Climbing Stairs? No [email or web address] Information not available 03/31/2023 Sex: Unknown Functional Status Question Answer Note LastModified by Organizat ion Details LastModified Time Do you use any illicit or recreational drugs? No Information not available 10/03/2021 What is your level of alcohol consumption? None [email or web address] Information not available 02/10/2023 Are you able to walk? YESWOREST Information not available 10/03/2021 Are you able to care for yourself? 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 No Information not available 03/31/2023 What is your exercise level? Moderate Information not available 10/03/2021 Mental Status Question Answer Note LastModified by Organization D etails LastModified Time Do you feel stressed (tense, restless, nervous, or anxious, or unable to sleep at night)? [id number] Information not available 10/03/2021 Family History Relationship Description Onset Age of this Age Resolved Age Notes LastModified by Organization Details LastModified Time Maternal Grandmother Diabetes mellitus [email or web address] Not available 05/25 10:41:48 Father Hypercholest erolemia [email or web address] Not available 05/25 10:41:48 Medical History Condition Response Allergies (Food, seasonal, environmental ) Y Other N Drug/Latex Allergies/Reactions N Breast Cancer N Blood Transfusion N Dermatologic Disorders N Lung Disease N Defects or Inherited Disease N Breast Problem N Gestational Diabetes N Hematologic disorders N Anesthesia Complications N History of STI N Deep Vein Thrombosis N Polycystic ovary syndrome N Anxiety Disorder N Autoimmune disease N Arthritis N Polyps N Infertility N Acid Reflux (GERD) Y History of abnormal pap N Cancer N Varicosities N Stroke N Neurologic/Epilepsy N Endometriosis N High Cholesterol N Fibromyalgia N Headaches N Kidney Disease N Heart Problems N Thyroid Problems N Kidney or Bladder Problems N GI Problems N Eating Disorder [...] SNOMED-CT Code Diagnosis ICD10 Code Diagnosis Note [id number] [address] [facility] [address] [address] 07/14/2024 15:46:53 07/15/2024 11:32:25 Twin 11157138 O30.[id number] [facility] [address],[facility] [place] [address] 07/14/2024 15:47:40 07/17/2024 00:24:18 Gestation period, 32 weeks 3230414 Z3A.32 Dichorioni c diamniotic twin 593342499 O30.043 [id number] Ralph Rosales MD [facility] [address] [address] 07/19/2024 14:53:53 07/19/2024 16:07:49 Dichorionic diamniotic twin 904441672 O30.043 O24.410 Z3A.32 [id number]|2024-08-04 23:10:00|2024-08-04 23:09:00|XMS_ITS|BKG DAEMON|External Medical Summaries|[id number]|" Continuity of Care Document Created on: August 04, 2024 Edilma Moon .[id number] : 1995 Sex: Female Author Organization [facility] Address [address] [place] [address] Assessment No assessment recorded. Plan of Treatment Reminders Order Date Submit Date Provider Last Modified By Organization Details Last Modified Time Details Appointments OB ROUTINE 2024 08:15A M [address]ila Street CNM Not available Not available Not available NST 2024 08:30A M NST SCHEDULE Not available Not available Not available NST [...] d. Imaging non-str ess test 2024 025 [facility] [address], [place], [address], 08/04/2024 19:29:37 Medication Orders None recorde d. Patient TargetsNo targets recorded. Patient InstructionsNo instructions recorded. Reason for Referral None Reported. Results Created Date Observation Date Name Description Value Unit Range Abnormal Flag Note LastModifiedBy Organization Detail LastModifiedTime 02/24/20 24 02/24/2024 US, obste tric, nucha l trans lucen cy No observ ation record ed. [facility] [address], [place], [address], 02/24/2024 17:03:07 02/24/20 24 02/24/2024 US, obste tric, nucha l trans lucen cy, addit ional gesta tion No observ ation record ed. [facility] [address], [place], [address], 02/24/2024 17:03:19 02/24/20 24 02/24/2024 US, obste tric, nucha l trans lucen cy No observ ation record ed. ron Kirkland [address], [place], [address], 02/24/2024 23:21:41 03/02/20 24 03/02/2024 US, obste tric, follo w-up No observ ation record ed. [email or web address] [facility] [place] [address] , [place], [address], 03/10/2024 08:55:01 03/02/20 24 03/02/2024 US, obste tric, follo w-up No observ ation record ed. [email or web address] [facility] [place] [address], [place], [address], 03/03/2024 16:06:01 03/30/19 25 03/30/2024 US, obste tric, follo w-up No observ ation record ed. [email or web address] [facility] [place] [address] [facility], [place], [address], 04/04/2024 18:35:23 04/03/19 25 03/30/2024 US, obste tric, follo w-up No observ ation record ed. [address] [place] [address] [facility], [place], [address], 04/05/2024 13:01:47 04/13/19 25 04/13/2024 US, obste tric, follo w-up No observ ation record ed. [address] [place] [address] [facility], [place], [address], 04/24/2024 23:07:26 04/20/19 25 04/20/2024 US, obste tric, follo w-up No observ ation record ed. [address] [place] [address] [facility], [place], [address], 04/28/2024 15:38:52 04/27/19 25 04/27/2024 US, obste tric, follo w-up No observ ation record ed. [address] [place] [address] [facility], [place], [address], 05/15/2024 13:13:35 04/27/19 25 04/27/2024 US, obste tric, follo w-up No observ ation record ed. [address] [facility] [address], [place], [address], 05/02/2024 10:47:43 05/04/19 25 05/04/2024 US, obste tric, follo w-up No observ ation record ed. [address] [place] [address] [facility], [place], [address], 05/15/2024 10:24:23 05/04/19 25 05/04/2024 US, obste tric, limit ed No observ ation record ed. [email or web address] [facility] [address], [place], [address], 05/08/2024 11:02:29 05/18/19 25 05/18/2024 US, obste tric, follo w-up No observ ation record ed. [email or web address] [facility] [address], [place], [address], 05/18/2024 18:38:54 05/18/19 25 05/18/2024 US, obste tric, follo w-up No observ ation record ed. [email or web address] [facility] [address], [place], [address], 05/18/2024 18:39:03 05/18/19 25 05/18/2024 US, obste tric, follo w-up No observ ation record ed. [email or web address] [address], [place], [address], 05/18/2024 21:37:42 06/17/19 25 06/16/2024 US, obste tric, follo w-up No observ ation record ed. [email or web address] [facility] [address], [place], [address], 06/16/2024 17:47:44 06/17/19 25 06/16/2024 US, obste tric, follo w-up No observ ation record ed. dee [address], [place], [address], 07/19/2024 15:43:51 07/15/19 25 07/14/2024 non-s tress test No observ ation record ed. [address], [place], [address], 07/17/2024 13:46:40 07/15/19 25 07/14/2024 non-s tress test No observ ation record ed. [email or web address] [facility] [address], [place], [address], 07/14/2024 17:49:59 07/15/19 25 07/14/2024 non-s tress test No observ ation record ed. [email or web address] [facility] [address], [place], [address], 07/14/2024 17:54:22 07/20/19 25 06/16/2024 US, obste tric, follo w-up No observ ation record ed. [email or web address] [address], [place], [address], 07/19/2024 22:12:21 07/20/19 25 07/19/2024 US, obste tric, follo w-up No observ ation record ed. [facility] [address], [place], [address], 07/19/2024 18:23:21 07/20/19 25 07/19/2024 US, obste tric, follo w-up No observ ation record ed. [facility] [address], [place], [address], 07/19/2024 18:23:30 07/20/19 25 07/19/2024 US, obste tric, bioph ysica l profi le + non-s tress test No observ ation record ed. [facility] [address], [place], [address], 07/19/2024 18:23:40 07/20/19 25 07/19/2024 US, obste tric, follo w-up No observ ation record ed. [email or web address] [address], [place], [address], 07/21/2024 12:53:44 07/21/19 25 07/19/2024 non-s tress test No observ ation record ed. [email or web address] [facility] [address], [place], [address], 07/20/2024 19:59:05 07/27/1907/26/2024 US, obste tric, bioph ysica l profi le + non-s tress test No observ ation record ed. [email or web address] [facility] [address], [place], [address], 07/26/2024 17:25:46 07/27/19 25 07/26/2024 US, obste tric, bioph ysica l profi le + non-s tress test No observ ation record ed. [email or web address] [facility] [address], [place], [address], 07/26/2024 17:25:56 07/27/19 25 07/26/2024 US, obste tric, follo w-up No observ ation record ed. [email or web address] [address] [facility], [place], [address], 07/27/2024 08:51:55 07/27/1907/26/2024 non-s tress test No observ ation record ed. [email or web address] [facility] [address], [place], [address], 07/26/2024 20:17:32 07/27/19 25 07/26/2024 non-s tress test No observ ation record ed. [email or web address] [facility] [address], [place], [address], 07/26/2024 22:03:57 08/03/19 25 08/02/2024 US, obste tric, bioph ysica l profi le + non-s tress test No observ ation record ed. [email or web address] [facility] [address], [place], [address], 08/02/2024 18:16:02 08/03/19 25 08/02/2024 US, renea tric, bioph ysica l profi le + non-s tress test No observ ation record ed. [email or web address] [facility] [address], [place], [address], 08/02/2024 18:16:11 08/03/19 25 08/02/2024 US, renea santiago, follo w-up No observ ation record ed. [email or web address] [address] [facility], [place], [address], 08/03/2024 14:12:42 08/03/19 25 08/02/2024 non-s tress test No observ ation record ed. [email or web address] [facility] [address], [place], [address], 08/02/2024 20:19:36 08/03/1908/02/2024 non-s tress test No observ ation record ed. [email or web address] [address], [place], [address], 08/02/2024 20:21:22 08/03/19 25 07/19/2024 non-s tress test No observ ation record ed. [email or web address] Not Available 08/02 20:49:35 08/05/19 25 08/04/2024 non-s tress test No observ ation record ed. [email or web address] [address], [place], [address], 08/04/2024 19:28:08 08/05/19 non-s tress test No observ ation record ed. [email or web address] [address], [place], [address], 08/04/2024 19:31:05 Result Notes None recorded. Problems Name Problem SNOMED Code Status Onset Date Resolution Date Notes Provider Name and Address Organization Details Recorded Time Pregnanc y 21246711 Completed 202207/29/2023 Tonja Mosqueda [facility], [place] [facility] 4 15:05:38 Past pregnanc y history of miscarri age [id number] Completed x 4, start ASA Katheryn Nuñez [facility], [facility] 4 11:39:35 Acid reflux 241661918 Completed Katheryn Nuñez [facility], [facility] 4 11:39:35 Obesity 307194855 Completed 34 wk antenata l testing Katheryn Nuñez [facility] 4 11:39:34 COVID-19 [id number] Completed 2022 asa , serial growth Katheryn Nuñez [facility], [facility] 4 11:39:35 Placenta previa 46233327 Completed resolved 06/[address] [facility] 4 11:39:35 Low lying placenta 463134730 Completed Katheryn Nuñez [facility], [facility] 4 11:39:35 History of SARS-CoV -2 [id number] 48666582 Active 2023 Covid 02/2023 Negrita Ortiz null, [facility] 4 17:48:26 Pregnanc y 26318932 Active 2023 Tonja Mosqueda null, [facility] 4 15:05:38 Dichorio juan diamniot ic twin pregnanc y 059041807 [facility] 03/30/24 US /CL 04/13 US only schedule d for CL [facility] 04/27 & 05/04 Delivery is recommen ded around 38 weeks for uncompli cated di/di twins Sana campos, [facility] 5 16:27:55 Dichorio juan diamniot ic twin pregnanc y 387901063 Active [facility] 03/30/24 US /CL 04/13 [facility] 04/27 & 05/04 Delivery is recommen ded around 38 weeks for uncompli cated di/di twins Sana campos, [facility] 5 16:27:55 Past pregnanc y history of placenta l abruptio n 087085865 Active 33W6D Sana campos, [facility] 5 14:02:58 Obesity 488619221 Active BMI >40 weekly testing @34wks Sana campos, [facility] 5 16:26:11 Past pregnanc y history of multiple miscarri ages Active [address] [facility] [address], [place], [address], [place] [facility] 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 5 18:01:55 Gestatio nal diabetes mellitus 62936904 Active BS QID, Serial growth us DT referral faxed to [facility] 06/23 sched 06/28- DT cancelle d no coverage for insuranc Mazin campos, [facility] 5 13:47:58 Gestatio chanelle diabetes mellitus 06743136 Active BS QID, Serial growth us DT referral faxed to [facility] 06/23 sched 06/28- DT cancelle d no coverage for insuranc Mazin campos, [facility] 5 13:47:58 Problem Notes None recorded. Procedures Surgical History Date Name Laterality Status Provider Name and Address Organization Details Recorded Time 05/05/19 25 cerclage completed Negritakim Ortiz [facility] 05/19/2024 16:58:05 02/04/20 24 Date of Last Pap Smear completed Negrita Ortiz [facility] 02/04/2024 12:47:09 10/02/19 23 DILATION & CURETTAGE (SURG) completed Ginger Mistry [facility] 10/02/2022 10:47:21 03/22/19 19 Tonsillectomy completed Negrita Ortiz [facility] 09/10/2022 17:23:24 Imaging Results Imaging Date Name Status LastModified by Organiz ation Details LastModified Time 08/04/2024 non-stress test completed [email or web address] [facility] [address], [place], [address], 08/04/2024 19:28:08 Procedure Notes None recorded. Medical Equipment None [...] Body mass index (BMI) Body height Body height Body mass index (BMI) Body weight Systolic blood pressure Diastolic blood pressure Systolic blood pressure Diastolic blood pressure Provider Name and Address Organization Details Last Updated DateTime 5 90024.8 0533 g 40.8 kg/m2 152.4 cm 152.4 cm 40.8 kg/m2 71748.8 1 g 107 mm[Hg] 70 mm[Hg] 107 mm[Hg] 70 mm[Hg] Negrita Ortiz [facility] 5 19:26:37 Social History Question Answer Notes LastModified by Organizat ion Details LastModified Time Tobacco Smoking Status Never Smoker Dipika campos, [facility] 03/31/2023 16:36:40 Do You Have An Advance Directive? No Information n ot available 10/03/2021 If You Are , What Was Your Level Of Alcohol Consumption Prior To ? Occasional [email or web address] Information not available 03/31/2023 How Many Years [...] Or The Highest Degree You Have Received? [id number] Information not available 10/03/2021 Are There Any Guns Present In Your Home? Yes Information not available 10/03/2021 Have You Ever Been Counseled For Unhealthy Alcohol Use? No [email or web address] Information not available 03/31/2023 Do You Use [...] Have Difficulty Walking Or Climbing Stairs? No Information not available 03/31/2023 Sex: Unknown Functional Status Question Answer Note LastModified by Organizat ion Details LastModified Time Do you use any illicit or recreational drugs? No Information not available 10/03/2021 What is your level of alcohol consumption? None [email or web address] Information not available 02/10/2023 Are you able to walk? [email or web address] Information not available 10/03/2021 Are you able to care for yourself? 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 No Information not available 03/31/2023 What is your exercise level? Moderate Information not available 10/03/2021 Mental Status Question Answer Note LastModified by Organization D etails LastModified Time Do you feel stressed (tense, restless, nervous, or anxious, or unable to sleep at night)? [id number] [email or web address] Information not available 10/03/2021 Family History Relationship Description Onset Age of this Age Resolved Age Notes LastModified by Organization Details LastModified Time Maternal Grandmother Diabetes mellitus [email or web address] Not available 05/25 10:41:48 Father Hypercholest erolemia [email or web address] Not available 05/25 10:41:48 Medical History Condition Response Allergies (Food, seasonal, environmental ) Y Other N Drug/Latex Allergies/Reactions N Breast Cancer N Blood Transfusion N Lung Disease N [...] N Kidney Disease N Heart Problems N Thyroid Problems N Kidney or Bladder Problems N GI Problems N Eating Disorder [...] SNOMED-CT Code Diagnosis ICD10 Code Diagnosis Note [id number] [facility] [address] [address] 07/14/2024 15:46:53 07/15/2024 11:32:25 Twin [id number] O30.009 [id number] [facility] [address],[facility] [place] [address] 07/14/2024 15:47:40 07/17/2024 00:24:18 Gestation period, 32 weeks 6913961 Z3A.32 Dichorioni c diamniotic twin [id number] O30.043 [id number] Ralph Rosales MD [facility] [address] [address]
--- OUTSIDE RECORDS SUMMARY | 2024-08-04 23:10 | XMS_ITS | Clinical Summary ---
Author Organization [facility] Address [address] [place] [address] Phone Care Team Providers Care Drop Man Name Role Phone Unavailable Primary Care Provider Unavailabl e Allergies No known active allergies Medications vits15/iron/fol ic/dss ( VIT 71-MZWK-AZEEE-D SS ORAL) Take by mouth. Active aspirin (ECOTRIN EC) 81 mg Tablet, Delayed Release (E.C.) Take 1 Tablet (81 mg) by mouth daily. 60 Tablet 3 03/07/2024 Active indomethacin (INDOCIN) 25 mg capsule Take 1 Capsule (25 mg) by mouth every 4 hours. 6 Capsule 05/05/2024 10:10 AM CONSTRUCTION SERVICES TECHNICIAN 05/05/2024 Active ferrous fumarate (FERRETTS) 325 mg [...] Description 06/28/2024 11:30 AM CDT Video Visit [facility] [address] [id number] [address] [place] [address] Sofia Goddard MD Obesity affecting [...] Sex Assigned at Female 02/07/2024 7:23 PM CONSTRUCTION SERVICES TECHNICIAN Legal Sex Female 2:26 PM CONSTRUCTION SERVICES TECHNICIAN Gender Identity Female 02/07/2024 7:23 PM CONSTRUCTION SERVICES TECHNICIAN Sexual Orientation Not on file Last Filed Vital Signs Vital Sign Reading Time Taken Comments Blood Pressure 112/61 05/05/2024 12:30 PM CONSTRUCTION SERVICES TECHNICIAN Pulse 88 05/05/2024 11:15 AM CONSTRUCTION SERVICES TECHNICIAN Temperature 36.6 C (97.9 F) 05/05/2024 12:30 PM CONSTRUCTION SERVICES TECHNICIAN Respiratory Rate 18 05/05/2024 12:30 PM CONSTRUCTION SERVICES TECHNICIAN Oxygen Saturation 100% 05/05/2024 11:15 AM CONSTRUCTION SERVICES TECHNICIAN Inhaled Oxygen Concentration - - Weight 95.7 kg (211 lb) 06/28/2024 11:25 AM CDT Height 152.4 cm (5') 06/28/2024 11:25 AM CDT Body Mass Index 41.21 06/28/2024 11:25 AM CDT Plan of Treatment Upcoming Encounters Date Type Department Care Team (Late st Contact Info) Description 09/08/2024 Hospital Encounter [facility] Labor & [address] [place] [address] Rena Dubose MD [address] [facility] [address] [place] [address] Health Maintenance Due Date Last [...] Diagnosis Comments TELEMETRY REPORT 05/10/2024 2:20 PM CONSTRUCTION SERVICES TECHNICIAN from Last 3 Months Results * TELEMETRY REPORT (05/10/2024 2:20 PM CONSTRUCTION SERVICES TECHNICIAN) us Provider Scanning ECG ORDERABLES Final Result from Last 3 Months Insurance [facility] [id number] RX [employer] Member Subscriber Plan / Payer (Ef fective 2024-Present) Name:Edilma Moon Relation to Subscriber:Not on file Name:Edilma Moon Subscriber ID:Not on file Date of :1995 Payer ID:Not on file Group ID:[id number] Type:RX Commercial Address: [address] [place] Advance Directives For more information, please contact: [phone] * Full Code (Latest Code Status on File) Date Activated Date Inactivated Comments 05/04/2024 4:49 PM 05/05/2024 3:09 PM
--- OUTSIDE RECORDS SUMMARY | 2024-08-04 23:10 | XMS_ITS | Data Portability ---
Author Organization [facility] [place] Address [address] [place] [address] Assessment Encounter Date Assessment Date Assessment LastModified [...] available OB ROUTINE 2024 05:00P M Pamela ANDRADE MD Not available Not available Not available [...] d. Imaging non-str ess test 2024 025 [place], [address], [place], [address], 08/04/2024 19:29:37 US, obstetr ic, biophys ical profile + non-str ess test [address], [address], [address], [place], [address], 08/02/2024 21:18:15 US, obstetr ic, biophys ical profile + non-str ess test [address], [address], [address], [place], [address], 08/02/2024 21:18:15 non-str ess test 2024 [address], [address], [place], [address], 08/03/2024 12:05:49 non-str ess test 2024 [address], [address], [place], [address], 07/27/2024 11:02:08 Medication Orders None recorde d. Patient TargetsNo targets recorded. Patient InstructionsNo instructions recorded. Reason for Referral None Reported. Results Created Date Observation Date Name Description Value Unit Range Abnormal Flag Note LastModifiedBy Organization Detail LastModifiedTime 07/15/1907/14/2024 non-s tress test No observ ation record ed. [place] [id number], [place], [address], 07/17/2024 13:46:40 07/15/1907/14/2024 non-s tress test No observ ation record ed. [place] [address], [place], [address], 07/14/2024 17:49:59 07/15/1907/14/2024 non-s tress test No observ ation record ed. [email or web address] [place] [address], [place], [address], 07/14/2024 17:54:22 07/20/19 25 06/16/2024 US, obste tric, follo w-up No observ ation record ed. [email or web address], [facility], [place], [address], 07/19/2024 22:12:21 07/20/19 25 07/19/2024 US, obste tric, follo w-up No observ ation record ed. [facility] [address], [place], [address], 07/19/2024 18:23:21 07/20/1907/19/2024 US, obste tric, follo w-up No observ ation record ed. [facility] [address], [place], [address], 07/19/2024 18:23:30 07/20/19 25 07/19/2024 US, obste tric, bioph ysica l profi le + non-s tress test No observ ation record ed. [email or web address] [place] [address], [place], [address], 07/19/2024 18:23:40 07/20/19 25 07/19/2024 US, obste tric, follo w-up No observ ation record ed. [email or web address] [address], [place], [address], 07/21/2024 12:53:44 07/21/19 25 07/19/2024 non-s tress test No observ ation record ed. [email or web address] [place] [address], [place], [address], 07/20/2024 19:59:05 07/27/19 25 07/26/2024 US, obste tric, bioph ysica l profi le + non-s tress test No observ ation record ed. [email or web address] [place] [address], [place], [address], 07/26/2024 17:25:46 07/27/19 25 07/26/2024 US, obste tric, bioph ysica l profi le + non-s tress test No observ ation record ed. [email or web address] [place] [address], [place], [address], 07/26/2024 17:25:56 07/27/19 25 07/26/2024 US, obste tric, follo w-up No observ ation record ed. [email or web address] [address], [place], [address], 07/27/2024 08:51:55 07/27/19 25 07/26/2024 non-s tress test No observ ation record ed. [email or web address] [place] [address], [place], [address], 07/26/2024 20:17:32 07/27/1907/26/2024 non-s tress test No observ ation record ed. [email or web address] [place] [address], [place], [address], 07/26/2024 22:03:57 08/03/19 25 08/02/2024 US, obste tric, bioph ysica l profi le + non-s tress test No observ ation record ed. [email or web address] [place] [address], [place], [address], 08/02/2024 18:16:02 08/03/19 25 08/02/2024 US, obste tric, bioph ysica l profi le + non-s tress test No observ ation record ed. [email or web address] [place] [address], [place], [address], 08/02/2024 18:16:11 08/03/19 25 08/02/2024 US, obste tric, follo w-up No observ ation record ed. [email or web address] [address], [facility], [place], [address], 08/03/2024 14:12:42 08/03/19 25 08/02/2024 non-s tress test No observ ation record ed. [email or web address] [place] [address], [place], [address], 08/02/2024 20:19:36 08/03/1908/02/2024 non-s tress test No observ ation record ed. [email or web address] [place] [address], [place], [address], 08/02/2024 20:21:22 08/03/19 25 07/19/2024 non-s tress test No observ ation record ed. [email or web address] Not Available 08/02 20:49:35 08/05/19 25 08/04/2024 non-s tress test No observ ation record ed. [email or web address] [place] [address], [place], [address], 08/04/2024 19:28:08 08/05/19 non-s tress test No observ ation record ed. [email or web address] [place] [address], [place], [address], 08/04/2024 19:31:05 Result Notes None recorded. Problems Name Problem SNOMED Code Status Onset Date Resolution Date Notes Provider Name and Address Organization Details Recorded Time Pregnanc y 89551215 Completed 202207/29/2023 Tonja campos, [facility] 4 15:05:38 Past pregnanc y history of miscarri age 090530902 Completed x 4, start ASA Katheryn Nuñez [facility] 4 11:39:35 Acid reflux 708345457 Completed Katheryn Nuñez [facility] 4 11:39:35 Obesity 457389191 Completed 34 wk antenata l testing Katheryn Nuñez [facility] 4 11:39:34 COVID-19 430980490 Completed 2022 asa , serial growth Katheryn Nuñez [facility] 4 11:39:35 Placenta previa 72026755 Completed resolved 06/30 Katheryn Nuñez [facility] 4 11:39:35 Low lying placenta 233848174 Completed Katheryn Nuñez [facility] 4 11:39:35 History of SARS-CoV -2 9405361913 60329463 Active 2023 Covid 02/2023 Negrita Ortiz null, [facility] 4 17:48:26 Pregnanc y 78341671 Active 2023 Tonja Mosqueda null, [facility] 4 15:05:38 Dichorio juan diamniot ic twin pregnanc y 644366752 Active [facility] 03/30/24 US /CL 04/13 US only schedule d for CL [facility] 04/27 & 05/04 Delivery is recommen ded around 38 weeks for uncompli cated di/di twins Sana Gloria null, [facility] 5 16:27:55 Dichorio juan diamniot ic twin pregnanc y 616395642 Active [facility] 03/30/24 US /CL 04/13 US only schedule d for CL [facility] 04/27 & 05/04 Delivery is recommen ded around 38 weeks for uncompli cated di/di twins Sana Gloria null, [facility] 5 16:27:55 Past pregnanc y history of placenta l abruptio n 406378714 Active 33W6D Sana Gloria null, [facility] 5 14:02:58 Obesity 638348183 Active BMI >40 weekly testing @34wks Sana Gloria null, [facility] 5 16:26:11 Past pregnanc y history of multiple miscarri ages Active [address] [facility] [address], [place], [address], [place] [facility] 5 17:02:37 Short cervical length in pregnanc y 445144829 Active 05/04 [facility] 1.28 admitted for eval & cercalge placemen t 21w6d Per Dr Sedrick campos, [facility] 5 18:01:55 Short cervical length in pregnanc y 789320021 Active 05/04 [facility] CL 1.28 admitted for eval & cercalge placemen t 21w6d Per Dr Sedrick campos, [facility] 5 18:01:55 Gestatio nal diabetes mellitus 99074697 Active BS QID, Serial growth us DT referral faxed to [facility] 06/23 sched 06/28- DT cancelle d no coverage for insuranc Mazin campos, [facility] 5 13:47:58 Gestatio nal diabetes mellitus 64271581 Active BS QID, Serial growth us DT referral faxed to [facility] 06/23 sched 06/28- DT cancelle d no coverage for insuranc Mazin campos, [facility] 5 13:47:58 Problem Notes None recorded. Procedures Surgical History Date Name Laterality Status Provider Name and Address Organization Details Recorded Time 05/05/19 25 cerclage completed Negrita Ortiz [facility] 05/19/2024 16:58:05 02/04/20 24 Date of Last Pap Smear completed Negrita Ortiz [facility] 02/04/2024 12:47:09 10/02/19 23 DILATION & CURETTAGE (SURG) completed Ginger Mistry [facility] 10/02/2022 10:47:21 03/22/19 19 Tonsillectomy completed Negrita Ortiz [facility] 09/10/2022 17:23:24 Imaging Results Imaging Date Name Status LastModified by Organiz ation Details LastModified Time 07/14/2024 non-stress test completed [place] [address], [place], [address], 07/17/2024 13:46:40 07/14/2024 non-stress test completed [email or web address] [place] [address] [address], [place], [address], 07/14/2024 17:49:59 07/14/2024 non-stress test completed [email or web address] [place] [address], [place], [address], 07/14/2024 17:54:22 06/16/2024 US, obstetric, follow-up completed [email or web address] [address], [place], [address], 07/19/2024 22:12:21 07/19/2024 US, obstetric, follow-up completed [facility] [address], [place], [address], 07/19/2024 18:23:21 07/19/2024 US, obstetric, follow-up completed [place] [address], [place], [address], 07/19/2024 18:23:30 07/19/2024 US, obstetric, biophysical profile + non-stress test completed [facility] [address], [place], [address], 07/19/2024 18:23:40 07/19/2024 US, obstetric, follow-up completed [email or web address] [address], [place], [address], 07/21/2024 12:53:44 07/19/2024 non-stress test completed [email or web address] [place] [address] [address], [place], [address], 07/20/2024 19:59:05 07/26/2024 US, obstetric, biophysical profile + non-stress test completed [address], [place], [address], 07/26/2024 17:25:46 07/26/2024 US, obstetric, biophysical profile + non-stress test completed [email or web address] [place] [address], [place], [address], 07/26/2024 17:25:56 07/26/2024 US, obstetric, follow-up completed [email or web address] [address], [place], [address], 07/27/2024 08:51:55 07/26/2024 non-stress test completed [email or web address] [place] [address], [place], [address], 07/26/2024 20:17:32 07/26/2024 non-stress test completed [email or web address] [place] [address], [place], [address], 07/26/2024 22:03:57 08/02/2024 US, obstetric, biophysical profile + non-stress test completed [email or web address] [place] [address], [place], [address], 08/02/2024 18:16:02 08/02/2024 US, obstetric, biophysical profile + non-stress test completed [email or web address] [place] [address], [place], [address], 08/02/2024 18:16:11 08/02/2024 US, obstetric, follow-up completed [email or web address] [address], [place], [address], 08/03/2024 14:12:42 08/02/2024 non-stress test completed [email or web address] [place] [address], [place], [address], 08/02/2024 20:19:36 08/02/2024 non-stress test completed [email or web address] [place] [address], [place], [address], 08/02/2024 20:21:22 07/19/2024 non-stress test completed [email or web address] Informati on not available 08/02/2024 20:49:35 08/04/2024 non-stress test completed [email or web address] [place] [address], [place], [address], 08/04/2024 19:28:08 08/04/2024 non-stress test completed [email or web address] [place] [address], [place], [address], 08/04/2024 19:31:05 Procedure Notes None recorded. Medical Equipment None [...] Address Organization Details Last Updated DateTime 5 64436.6 2059 g 40.4 kg/m2 152.4 cm 67237.6 2059 g 40.4 kg/m2 152.4 cm 117 mm[Hg] 75 mm[Hg] 117 mm[Hg] 75 mm[Hg] Negrita Ortiz [facility] 5 20:13:28 Date Recorded Body height Body mass index (BMI) Body weight Systolic blood pressure Diastolic blood pressure Provider Name and Address Organization Details Last Updated DateTime 08/02/2024 152.4 cm 40.6 kg/m2 55121.21 g 118 mm[Hg] 77 mm[Hg] Negrita Ortiz [facility] 5 20:18:04 Date Recorded Body weight Body mass index (BMI) Body height Body height Body mass index (BMI) Body weight Systolic blood pressure Diastolic blood pressure Systolic blood pressure Diastolic blood pressure Provider Name and Address Organization Details Last Updated DateTime 5 48247.8 0533 g 40.8 kg/m2 152.4 cm 152.4 cm 40.8 kg/m2 63974.8 1 g 107 mm[Hg] 70 mm[Hg] 107 mm[Hg] 70 mm[Hg] Negrita Ortiz [facility] 5 19:26:37 Social History Question Answer Notes LastModified by Organizat ion Details LastModified Time Tobacco Smoking Status Never [facility] 03/31/2023 16:36:40 Do You Have An Advance Directive? No Information n ot available 10/03/2021 If You Are , What Was Your Level Of Alcohol Consumption Prior To ? Occasional [email or web address] Information not available 03/31/2023 How Many Years [...] Or The Highest Degree You Have Received? [id number] Information not available 10/03/2021 Are There Any Guns Present In Your Home? Yes Information not available 10/03/2021 Have You Ever Been Counseled For Unhealthy Alcohol Use? No [email or web address] Information not available 03/31/2023 Do You Use [...] Have Difficulty Walking Or Climbing Stairs? No [email or web address] Information not available 03/31/2023 Sex: Unknown Functional Status Question Answer Note LastModified by Organizat ion Details LastModified Time Do you use any illicit or recreational drugs? No Information not available 10/03/2021 What is your level of alcohol consumption? None [email or web address] Information not available 02/10/2023 Are you able to walk? YESWOREST Information not available 10/03/2021 Are you able to care for yourself? 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 No [email or web address] Information not available 03/31/2023 What is your exercise level? Moderate Information not available 10/03/2021 Mental Status Question Answer Note LastModified by Organization D etails LastModified Time Do you feel stressed (tense, restless, nervous, or anxious, or unable to sleep at night)? [id number] Information not available 10/03/2021 Family History Relationship Description Onset Age of this Age Resolved Age Notes LastModified by Organization Details LastModified Time Maternal Grandmother Diabetes mellitus [email or web address] Not available 05/25 10:41:48 Father Hypercholest erolemia [email or web address] Not available 05/25 10:41:48 Medical History Condition [...] SNOMED-CT Code Diagnosis ICD10 Code Diagnosis Note [id number]|2024-08-04 23:10:00|2024-08-04 23:10:00|XMS_ITS|CJ MENDENHALL|External Medical Summaries|[id number]|" Clinical Summary Created on: August 04, 2024 Enrique Dietz : 1995 Sex: Female Author Organization [facility] Address [address] [place] [address] Care Team Providers 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 This disclosure is being madepursuant to the Care Everywhere program and may not contain all information available regarding this patient. Last updated 17.[facility] Allergies No known active allergies Medications * [...] and heating? Not hard at all 06/28/2023 [facility] [place] [facility] - Occupational Stress [...] place to sleep or slept in a nursing home (including now)? No 06/28/2023 Comments No [...] Group B GREG 07/02/2023 1:07 PM CDT [facility] Microbiology MISCELLANEOUS SAMPLES / Unknown Collection / Unknown 06/28/2023 5:07 PM CDT 06/28/2023 5:11 PM CDT us Nissa Kebede MD LAB - MICROBIOLOGY ORDERABL ES Final Result [facility] [address] [place] [address], [facility] [phone] from Last 3 Months or Most Recently Relevant to Health Maintenance Insurance [employer] [facility] CARE SELF PAY NO INSURANCE Member Subscriber Plan / Payer (Ef fective for All Dates) Name:Enrique Dietz Member ID:Not on file Relation to Subscriber:Not on file Name:SARAIENRIQUE Subscriber ID:Not on file Address: [address] [place] [address] Payer ID:Not on file Group ID:Not on file Type:Self Pay Address: [place] [facility] SELF PAY NO INSURANCE Member Subscriber Plan / Payer (Ef fective for All Dates) Name:Enrique Dietz Member ID:Not on file Relation to Subscriber:Not on file Name:ENRIQUE DIETZ Subscriber ID:Not on file Address: [address] [place] [address] Payer ID:Not on file Group ID:Not on file Type:Self Pay Address: [place] SELF PAY NO INSURANCE Member Subscriber Plan / Payer (Ef fective for All Dates) Name:Enrique Dietz Member ID:Not on file Relation to Subscriber:Not on file Name:ENRIQUE DIETZ Subscriber ID:Not on file Address: [address] [place] [address] Payer ID:Not on file Group ID:Not on file Type:Self Pay Address: [place], [place] Advance Directives * Full Code (Latest Code Status on File) Date Activated Date Inactivated Comments 06/28/2023 3:55 PM 06/30/2023 2:32 PM "
--- OUTSIDE RECORDS SUMMARY | 2024-08-04 23:10 | XMS_ITS | Referral Summary ---
Author Organization [facility] Address [address] [place] [address] Care Team Providers Care Jd Edwards Developer Name Role Phone Jace Barrera MD Primary Care Provider [phone] Allergies No known active allergies Medications cholecalciferol , vitamin D3, 1,000 unit tablet,chewable Take 1 tablet/chew tab by mouth daily Active mydbqxyx04-vffz -quqacv9-fr-cck 1.5 mg iron- 8.73 mg-6.4 mg capsule,IR [...] 11/20 Assessment & Plan (01/24/2023 11:17 PM STOCK PARTS FABRICATOR): Patient is encouraged to lose weight with a combination of caloric reduction and increased exercise. Various strategies discussed. The long-term risks associated with continued morbid obesity discussed. Fatigue 06/21/2020 Assessment & Plan (10/14/2020 10:56 PM CDT): Increase vitamin-D supplementation and check level in 4 months. B12 and TSH normal Vitamin D deficiency 06/21/2020 Assessment & Plan (01/24/2023 11:17 PM STOCK PARTS FABRICATOR): Continue vitamin-D supplementation check level in 1 [...] 10/21/2018 Assessment & Plan (04/18/2019 8:46 AM STOCK PARTS FABRICATOR): Currently resolved and restart PPI as needed. Assessment & Plan (10/21/2018 2:45 PM CDT): Increase Ranitidine to 300 mg at bedtime every day. Recommend Tonsillectomy Recurrent tonsillitis 10/04/2018 Assessment & Plan (10/05/2018 3:53 PM CDT): Take Augmentin with a meal, have a Probiotic at a different meal (4 hours in between) [place] screen - call with results Follow up in 4-6 weeks If no improvement, consider Tonsillectomy Good hydration Adequate sleep 7-8 hours Idiopathic scoliosis 04/12/2018 Overview (04/12/2018): 2015 Healthcare maintenance 04/12/2018 Assessment & Plan (01/24/2023 11:16 PM STOCK PARTS FABRICATOR): Flu shot each December. Tetanus booster every 10 years. Follow-up the roll icer machine for breast exam and pelvic exam as [...] needed. Assessment & Plan (04/18/2019 8:46 AM STOCK PARTS FABRICATOR): Flu shot each December. Tetanus booster every 10 years. Follow-up with the roll icer machine for breast exam and pelvic exam as they direct. Diet exercise for weight loss discussed. Will see her back in 1 year for physical and fasting lab sooner if needed. Assessment & Plan (04/12/2018 9:02 AM STOCK PARTS FABRICATOR): Flu shot each December. Update her tetanus booster today. She should see her roll icer machine yearly for breast exam and pelvic exam [...] on file Legal Sex Female 6:13 PM STOCK PARTS FABRICATOR Gender Identity Female 01/15/2021 8:48 PM CDT [...] Plan of Treatment Not on file Insurance [facility] HMO/PPO Address: [facility] [id number] [place] [address] [employer] Address: [facility] [address] [place] [address] [facility] CHOICE PLUS [facility] HMO/PPO Address: [place] [address] CHOICE PLUS [facility] HMO/PP[place] [address] CHOICE PLUS [facility] HMO/PP[place] [address] Care Teams Jd Edwards Developer Relationship Specialty Start Date End Date Jace Barrera MD [address] [address] PCP - General Internal Medicine 02/01/24
--- OUTSIDE RECORDS SUMMARY | 2024-08-04 23:10 | XMS_ITS | Clinical Summary ---
Author Organization [facility] Address [address] [place] [address] Care Team Providers Care Cable Systems Installer Name Role Phone Jace Barrera MD Primary Care Provider [phone] Allergies No known active allergies Medications cholecalciferol , vitamin D3, 1,000 unit tablet,chewable Take 1 tablet/chew tab by mouth daily Active [id number]-uzsm -pgxiqd4-ed-khw 1.5 mg iron- 8.73 mg-6.4 mg capsule,IR [...] 11/20 Assessment & Plan (01/24/2023 11:17 PM BRIM GREASER OPERATOR): Patient is encouraged to lose weight with a combination of caloric reduction and increased exercise. Various strategies discussed. The long-term risks associated with continued morbid obesity discussed. Fatigue 06/21/2020 Assessment & Plan (10/14/2020 10:56 PM CDT): Increase vitamin-D supplementation and check level in 4 months. B12 and TSH normal Vitamin D deficiency 06/21/2020 Assessment & Plan (01/24/2023 11:17 PM BRIM GREASER OPERATOR): Continue vitamin-D supplementation check level in 1 [...] 10/21/2018 Assessment & Plan (04/18/2019 8:46 AM BRIM GREASER OPERATOR): Currently resolved and restart PPI as needed. Assessment & Plan (10/21/2018 2:45 PM CDT): Increase Ranitidine to 300 mg at bedtime every day. Recommend Tonsillectomy Recurrent tonsillitis 10/04/2018 Assessment & Plan (10/05/2018 3:53 PM CDT): Take Augmentin with a meal, have a Probiotic at a different meal (4 hours in between) [place] screen - call with results Follow up in 4-6 weeks If no improvement, consider Tonsillectomy Good hydration Adequate sleep 7-8 hours Idiopathic scoliosis 04/12/2018 Overview (04/12/2018): 2015 Healthcare maintenance 04/12/2018 Assessment & Plan (01/24/2023 11:16 PM BRIM GREASER OPERATOR): Flu shot each December. Tetanus booster every 10 years. Follow-up the field map editor for breast exam and pelvic exam as [...] needed. Assessment & Plan (04/18/2019 8:46 AM BRIM GREASER OPERATOR): Flu shot each December. Tetanus booster every 10 years. Follow-up with the field map editor for breast exam and pelvic exam as they direct. Diet exercise for weight loss discussed. Will see her back in 1 year for physical and fasting lab sooner if needed. Assessment & Plan (04/12/2018 9:02 AM BRIM GREASER OPERATOR): Flu shot each December. Update her tetanus booster today. She should see her field map editor yearly for breast exam and pelvic exam [...] on file Legal Sex Female 6:13 PM BRIM GREASER OPERATOR Gender Identity Female 01/15/2021 8:48 PM CDT [...] patient's age to complete this topic Insurance [facility] HMO/PPO Address: [facility] [address] [place] [address] [employer] Address: [facility] [address] [place] [address] [facility] CHOICE PLUS [facility] HMO/PPO Address: [place] [address] CHOICE PLUS [facility] HMO/PPO Address: [place] [address] CHOICE PLUS [facility] HMO/PPO Address: [facility] [id number] [place] [address] Care Teams Cable Systems Installer Relationship Specialty Start Date End Date Jace Barrera MD [address] [address] PCP - General Internal Medicine 02/01/24
[2024-08-04 23:19] VITALS: BP 128/71; PULSE 93
[2024-08-04 23:23] VITALS: BMI 40.0
[2024-08-04 23:23] LABS: Glucose Point of Care 89 mg/dl (65-105)
--- NOTE | 2024-08-04 23:24 | OBADM ---
This patient, Edilma Moon, admitted to the OB room Labor/Delivery/Recovery 105 for observation. Patient/family oriented to hospital policies and general routines including ID bracelet, bed and alarms, visiting hours, pain management, procedures, bathroom and other care routines, personal items, smoking policy, room service/diet, and visiting hours. Patient/Family are encouraged to report perceived risks to care and to ask questions if they do not understand what they are told or what they should do.
[2024-08-04 23:30] VITALS: BP 119/63; PULSE 86
[2024-08-04 23:45] VITALS: BP 115/70; PULSE 91
[2024-08-05] VITALS (14 sets, daily range): BP systolic 81–131; BP diastolic 52–90; PULSE 77–92; TEMP 36.6
[2024-08-05 00:10] LABS: Basophils Percent Auto 0.2 % (0.2-1.2); Eosinophils Absolute Auto 0.1 K/mm3 (0-0.3); Eosinophils Percent Auto 0.4 % (0-4.4); Hematocrit 36.4 % (37.0-47.0); Hemoglobin 11.6 g/dL (12.0-15.0); Immature Granulocyte Percent A 0.8 % (0-0.5); Lymphocytes Absolute Auto 2.34 K/mm3 (0.9-3.2); Lymphocytes Percent Auto 19.4 % (18.3-44.2); Mean Corpuscular HGB Conc 31.9 g/dl (32-36); Mean Corpuscular Hemoglobin 27.8 pg (26-34); Mean Corpuscular Volume 87.1 fl (80-100); Mean Platelet Volume 10.4 fl (7.4-10.4); Monocytes Percent Auto 7.9 % (2.6-8.5); Neutrophils Absolute Auto 8.6 K/mm3 (1.3-6.7); Neutrophils Percent Auto 71.3 % (45.5-73.1); Platelet Count Result 283 k/mm3 (150-375); Red Blood Count 4.18 M/mm3 (4.2-5.4); Red Cell Distribution Width 13.8 % (11.5-14.5); White Blood Count 12.1 K/mm3 (4.5-10.0)
[2024-08-05 00:56] LABS: Syphilis IgG/IgM Antibody Negative (Negative)
[2024-08-05 01:09] LABS: HIV 1/2 Ab P24 Ag Result Negative (Negative)
[2024-08-05 01:20] LABS: Add Urine Microscopic? YES; Appearance Urine Clear (Clear); Bacteria Urine None Seen /hpf; Bilirubin Urine Negative (Negative); Blood Urine Negative (Negative); Color Urine Yellow (Yellow); Glucose Urine UA Negative (Negative); Ketones Urine 2+ mg/dL (Negative); Leukocyte Esterase Ur Trace LEU/UL (Negative); Nitrate Urine Negative (Negative); Non Pathogenic Casts 0-2; Protein Urine Negative (Negative); RBC Urine 0-2 /hpf (0-2); Specific Grav Ur 1.016 (1.001-1.035); Squamous Epithelial Cell Urine None Seen /hpf (Few); Urobilinogen Urine 0.2 mg/dL (<2.0); WBC Urine 0-5 /hpf (0-3); pH Urine 6.5 (5.0-9.0)
[2024-08-05 03:40] LABS: Glucose Point of Care 79 mg/dl (65-105)
--- NOTE | 2024-08-05 08:31 | P.HP_ITS ---
H&P: HPI History of Present Illness Date/Time: 08/05/24 08:31 Chief Complaint: Contractions Narrative: This patient is a 28-year-old multiparous female at 35 weeks gestation with a twin . She presented with painful contractions. She was observed for period of time-several hours. Her contractions slowed. Her cervix is 4 cm. She is stable and not in labor at this time. We agree to 60 mg of Procardia and to observe her blood pressures with monitoring until she was considered stable. She will be discharged home later. Review of Systems Review of Systems: All systems reviewed & are unremarkable except as noted in HPI and below Constitutional: Constitutional: Denies chills, Denies fatigue, Denies fever(s) and Denies weakness Eyes: Eyes: Denies blurry vision, Denies change in vision, Denies loss of peripheral vision, Denies loss of vision, Denies other visual disturbances and Denies eye pain ENT: Denies vertigo, Denies dizziness, Denies hearing loss, Denies mouth pain, Denies nasal obstruction, Denies neck mass and Denies neck pain Cardiovascular: Cardiovascular: Denies chest pain, Denies diaphoresis, Denies syncope, Denies leg edema and Denies dyspnea Respiratory: Respiratory: Denies chest congestion, Denies cough, Denies hemoptysis, Denies dyspnea and Denies wheezing Gastrointestinal: Gastrointestinal: Denies abdominal pain, Denies constipation, Denies diarrhea, Denies nausea and Denies vomiting Genitourinary: Genitourinary: Denies hematuria, Denies change in libido, Denies nocturia, Denies genital lesions, Denies flank pain and Denies urinary urgency Musculoskeletal: Musculoskeletal: Denies abnormal gait, Denies back pain, Denies myalgias, Denies arthralgias, Denies joint swelling, Denies muscle weakness and Denies neck pain Integumentary/Breasts: Skin/Breast: Denies swelling, Denies breast pain, Denies breast mass, Denies dry skin, Denies nipple discharge, Denies unusual bruising and Denies jaundice Neurologic: Denies Neuro-related abnormal movements, Denies Abnormal speech present, Denies abnormal gait, Denies behavioral changes, Denies confusion, Denies vertigo, Denies dizziness, Denies syncope, Denies loss of vision, Denies memory loss, Denies convulsions and Denies weakness Psychiatric: Psychiatric: Denies abnormal sleep pattern, Denies behavioral changes, Denies change in libido, Denies confusion, Denies depression, Denies anhedonia and Denies memory loss Endocrine: Endocrine: Reports no additional endocrine complaints, Denies change in libido and Denies fatigue Hematologic/Lymphatic: Hematologic/Lymphatic: Reports no additional hematologic/lymphatic complaints Allergic/Immunologic: Allergic/Immunologic: Reports no additional allergic/immunologic complaints and Denies wheezing PMFSH Past Medical History Medical History Morbid obesity Social History Social History Smoking status: Never smoker Alcohol intake: current Drinks per week: 3 Alcohol use details: WHEN NOT Substance use: never Substance use type: does not use Do You Feel Safe in your Home?: Yes Lack of Transportation: No Lack of Food: Never True Current Housing: I Have Housing Concerned About Future Housing: No Difficulty Paying Gas/Electric Bills: No Difficulty Paying for Meds: No Currently Unemployed: No Education: High School Diploma/GED Difficulty w/ Childcare or Family Care: No Living arrangements: with family Spiritual care concerns: No Meds Home Medications and Allergies Home Medications Medication Instructions Recorded Confirmed Type vit no.133-ferrous 1 tablet PO DAILY 06/26/23 08/04/24 History fumarate 28 mg-folic acid 800 mcg tablet () nifedipine 30 mg tablet,extended 30 mg PO DAILY #30 tabs 08/03/24 08/04/24 Rx release 24 hr (Procardia XL) aspirin 81 mg tablet,delayed 81 mg PO DAILY 08/04/24 08/04/24 History release blood sugar diagnostic (OneTouch 08/04/24 08/04/24 History Verio test strips) blood-glucose meter (OneTouch 08/04/24 08/04/24 History Verio Flex Meter) lancets 33 gauge (OneTouch Delica 08/04/24 08/04/24 History Plus Lancet) Allergies Allergy/AdvReac Type Severity Reaction Status Date / Time No Known Allergies Allergy Verified 08/04/24 23:30 Vital Signs Vital Signs - 24 hr 08/04/24 23:19 08/04/24 23:30 08/04/24 23:45 Temperature Pulse Rate 93 86 91 Blood Pressure 128/71 119/63 115/70 Oxygen Delivery 08/05/24 00:00 08/05/24 00:14 08/05/24 00:15 Temperature 97.9 F Pulse Rate 89 Blood Pressure 118/73 Oxygen Delivery Room Air 08/05/24 00:30 08/05/24 00:45 08/05/24 01:00 Temperature Pulse Rate 77 86 89 Blood Pressure 105/63 120/66 117/63 Oxygen Delivery 08/05/24 02:42 08/05/24 03:00 08/05/24 04:00 Temperature 97.9 F Pulse Rate 88 79 Blood Pressure 121/71 113/69 Oxygen Delivery 08/05/24 05:28 08/05/24 06:00 08/05/24 07:02 Temperature Pulse Rate 80 92 80 Blood Pressure 117/72 121/90 81/52 L Oxygen Delivery Exam Const: General: cooperative, healthy appearing, comfortable and no acute distress Orientation/consciousness: oriented to person, oriented to place and oriented to time HENMT: Head: normal to inspection Ears: external ears normal Face/Nose/Sinus: Normal external nose present and normal facial exam Face and sinus: normal facial exam Eyes: General: appearance normal, both eyes and all related structures Neck: Neck: normal visual inspection, trachea midline and supple Resp: Auscultation: clear to auscultation bilaterally, no crackles, no rales, no rhonchi and no wheezes Cardio: Rate: regular rate Rhythm: regular rhythm Heart sounds: no click, no murmurs and no rubs GI: GI Palp: No abdominal tenderness, No Soft to palpation, No Tenderness to palpation present (GI) and No Palpable mass present Auscultation: normal bowel sounds Skin: General skin exam: normal color and no rashes or lesions noted Neuro: General: oriented to person, oriented to place and oriented to time Extrem: General: normal to inspection, no joint enlargement, no clubbing, cyanosis or edema, no pedal edema and no calf tenderness Psych: Appearance: grossly normal Mental Status: mental status grossly normal Speech and movement: Normal speech and movement present H&P: Results Labs Labs: Short CBC 08/04/24 Range/Units 23:48 WBC 12.1 H (4.5-10.0) K/mm3 Hgb 11.6 L D (12.0-15.0) g/dL Hct 36.4 L (37.0-47.0) % Plt Count 283 (150-375) k/mm3 Urine 08/05/24 Range/Units 01:09 Urine Color Yellow (Yellow) Urine Appearance Clear (Clear) Urine pH 6.5 (5.0-9.0) Ur Specific [place] 1.016 (1.001-1.035) Urine Protein Negative (Negative) mg/dL Urine Glucose (UA) Negative (Negative) mg/dL Assessment and Plan Assessment and plan (1) False labor: Code(s): O47.9 - False labor, unspecified Status: Acute Plan This patient is a 28-year-old multiparous female at 35 weeks gestation with a twin . She presented with painful contractions. She was observed for period of time-several hours. Her contractions slowed. Her cervix is 4 cm. She is stable and not in labor at this time. We agree to 60 mg of Procardia and to observe her blood pressures with monitoring until she was considered stable. She will be discharged home later.
[2024-08-05] MEDS: NIFEdipine 30 MG TAB.ER.24 60 MG PO (08:38)
== END 2024-08-05 10:40 | disposition home or self-care (01) ==
PROVIDERS: Admitting Provider Obstetrics & Gynecology; Referring Provider Advanced Practice Midwife; Visit Provider Obstetrics & Gynecology
DX: O47.03 False labor before 37 completed weeks of gestation, third trimester (principal); O30.003 Twin pregnancy, unspecified number of placenta and unspecified number of amniotic sacs, third trimester; Z3A.35 35 weeks gestation of pregnancy; Z11.4 Encounter for screening for human immunodeficiency virus [HIV]
CPT/HCPCS: 36415; 81001; 82948; 85025; 86593; 86703; 86850; 86900; 86901; A9270; G0378; G0379; G0432

== ENCOUNTER 2024-08-13 00:31 | Inpatient (IN) | payer OTHER, SELFPAY ==
[2024-08-13] VITALS (200 sets, daily range): BP systolic 68–130; BP diastolic 44–104; PULSE 65–110; RESP 14–20; TEMP 36.3–37.5; O2SAT 96–100; BMI 41.1
[2024-08-13] MEDS: LACTATED RINGERS 1,000 ML 125 ML IV CONT ×3 (01:20→08:54)
--- OUTSIDE RECORDS SUMMARY | 2024-08-13 01:23 | XMS_ITS | Clinical Summary ---
Author Organization [facility] Address [address] [place] [address] Phone Care Team Providers Care Motion Study Analyst Name Role Phone Unavailable Primary Care Provider Unavailabl e Allergies No known active allergies Medications vits15/iron/fol ic/dss ( VIT 83-IUHI-CGRWJ-D SS ORAL) Take by mouth. Active aspirin (ECOTRIN EC) 81 mg Tablet, Delayed Release (E.C.) Take 1 Tablet (81 mg) by mouth daily. 60 Tablet 3 03/07/2024 Active indomethacin (INDOCIN) 25 mg capsule Take 1 Capsule (25 mg) by mouth every 4 hours. 6 Capsule 05/05/2024 10:10 AM HARDWARE DEVELOPER 05/05/2024 Active ferrous fumarate (FERRETTS) 325 mg [...] Visit [facility]aternal [facility] [address] [address] [address] [place] [address] Sofia Goddard MD Obesity affecting [...] Sex Assigned at Female 02/07/2024 7:23 PM HARDWARE DEVELOPER Legal Sex Female 2:26 PM HARDWARE DEVELOPER Gender Identity Female 02/07/2024 7:23 PM HARDWARE DEVELOPER Sexual Orientation Not on file Last Filed Vital Signs Vital Sign Reading Time Taken Comments Blood Pressure 112/61 05/05/2024 12:30 PM HARDWARE DEVELOPER Pulse 88 05/05/2024 11:15 AM HARDWARE DEVELOPER Temperature 36.6 C (97.9 F) 05/05/2024 12:30 PM HARDWARE DEVELOPER Respiratory Rate 18 05/05/2024 12:30 PM HARDWARE DEVELOPER Oxygen Saturation 100% 05/05/2024 11:15 AM HARDWARE DEVELOPER Inhaled Oxygen Concentration - - Weight 95.7 kg (211 lb) 06/28/2024 11:25 AM CDT Height 152.4 cm (5') 06/28/2024 11:25 AM CDT Body Mass Index 41.21 06/28/2024 11:25 AM CDT Plan of Treatment Upcoming Encounters Date Type Department Care Team (Late st Contact Info) Description 09/08/2024 Hospital Encounter [facility] Labor & [address] [place] [id number] Rena Dubose MD [address] [place] [address] Health Maintenance Due Date Last [...] (60+ or ) (No Doses Required) Completed Insurance [employer] [facility] [id number] RX [employer] RX Member Subscriber Plan / Payer (Ef fective 2024-Present) Name:Edilma Moon Relation to Subscriber:Not on file Name:Amaliabarbara Edilma Subscriber ID:Not on file Date of :1995 Payer ID:Not on file Group ID:[id number] Type:RX Commercial Address: [place] Advance Directives For more information, please contact: [phone] * Full Code (Latest Code Status on File) Date Activated Date Inactivated Comments 05/04/2024 4:49 PM 05/05/2024 3:09 PM
--- OUTSIDE RECORDS SUMMARY | 2024-08-13 01:23 | XMS_ITS | Referral Summary ---
Author Organization [facility] Address [address] [place] [address] Care Team Providers Care Genetic Coordinator Name Role Phone Jace Barrera MD Primary Care Provider [phone] Allergies No known active allergies Medications cholecalciferol , vitamin D3, 1,000 unit tablet,chewable Take 1 tablet/chew tab by mouth daily Active skezmamz77-vzkk -nibfqg4-ej-ois 1.5 mg iron- 8.73 mg-6.4 mg capsule,IR [...] 11/20 Assessment & Plan (01/24/2023 11:17 PM GARNETT ROOM WORKER): Patient is encouraged to lose weight with a combination of caloric reduction and increased exercise. Various strategies discussed. The long-term risks associated with continued morbid obesity discussed. Fatigue 06/21/2020 Assessment & Plan (10/14/2020 10:56 PM CDT): Increase vitamin-D supplementation and check level in 4 months. B12 and TSH normal Vitamin D deficiency 06/21/2020 Assessment & Plan (01/24/2023 11:17 PM GARNETT ROOM WORKER): Continue vitamin-D supplementation check level in 1 [...] 10/21/2018 Assessment & Plan (04/18/2019 8:46 AM GARNETT ROOM WORKER): Currently resolved and restart PPI as needed. Assessment & Plan (10/21/2018 2:45 PM CDT): Increase Ranitidine to 300 mg at bedtime every day. Recommend Tonsillectomy Recurrent tonsillitis 10/04/2018 Assessment & Plan (10/05/2018 3:53 PM CDT): Take Augmentin with a meal, have a Probiotic at a different meal (4 hours in between) [place] screen - call with results Follow up in 4-6 weeks If no improvement, consider Tonsillectomy Good hydration Adequate sleep 7-8 hours Idiopathic scoliosis 04/12/2018 Overview (04/12/2018): 2015 Healthcare maintenance 04/12/2018 Assessment & Plan (01/24/2023 11:16 PM GARNETT ROOM WORKER): Flu shot each December. Tetanus booster every 10 years. Follow-up the assistant education director for breast exam and pelvic exam as [...] needed. Assessment & Plan (04/18/2019 8:46 AM GARNETT ROOM WORKER): Flu shot each December. Tetanus booster every 10 years. Follow-up with the assistant education director for breast exam and pelvic exam as they direct. Diet exercise for weight loss discussed. Will see her back in 1 year for physical and fasting lab sooner if needed. Assessment & Plan (04/12/2018 9:02 AM GARNETT ROOM WORKER): Flu shot each December. Update her tetanus booster today. She should see her assistant education director yearly for breast exam and pelvic exam [...] on file Legal Sex Female 6:13 PM GARNETT ROOM WORKER Gender Identity Female 01/15/2021 8:48 PM CDT [...] [employer] Address: [facility] [address] [place] [address] [facility] CHOICE PLUS CHOICE PLUS CHOICE PLUS Care Teams Genetic Coordinator Relationship Specialty Start Date End Date Jace Barrera MD [address] [address] PCP - General Internal Medicine 02/01/24
--- OUTSIDE RECORDS SUMMARY | 2024-08-13 01:23 | XMS_ITS | Clinical Summary ---
Author Organization [facility] Address [address] [place] [address] Care Team Providers Care Precision Assembly Inspector Name Role Phone Unavailable Primary Care Provider Unavailabl e Source Comments [facility],non-owned Affiliates and Associated Physician Practices is amultiple site organization consisting of ambulatory clinics and hospital sitesin [place], [place], [place] and [place]. This disclosure is being madepursuant to the Care Everywhere program and may not contain all information available regarding this patient. Last updated 17.[facility] Allergies No known active allergies Medications * [...] and heating? Not hard at all 06/28/2023 [facility] - Occupational Stress [...] place to sleep or slept in a halfway (including now)? No 06/28/2023 Comments No Sex [...] Group B GREG 07/02/2023 1:07 PM CDT [facility] MICROBIOLOGY Microbiology MISCELLANEOUS SAMPLES / Unknown Collection / Unknown 06/28/2023 5:07 PM CDT 06/28/2023 5:11 PM CDT us Nissa Kebede MD LAB - MICROBIOLOGY ORDERABL ES Final Result [facility] MICROBIOLOGY [address] [place] [address], [facility] [phone] from Last 3 Months or Most Recently Relevant to Health Maintenance Insurance [employer] Member Subscriber Plan / Payer (Ef fective 2022-Present) Name:Enrique Dietz Relation to Subscriber:Self Name:Enrique Dietz Payer ID:[id number] (NAIC) Type:Commercial Address: [place] [id number] [facility] SELF PAY NO INSURANCE Member Subscriber Plan / Payer (Ef fective for All Dates) Name:Enrique Dietz Member ID:Not on file Relation to Subscriber:Not on file Name:ENRIQUE DIETZ Subscriber ID:Not on file Address: [address] Payer ID:Not on file Group ID:Not on file Type:Self Pay Address: [place], [place] SELF PAY NO INSURANCE Member Subscriber Plan / Payer (Ef fective for All Dates) Name:Enrique Dietz Member ID:Not on file Relation to Subscriber:Not on file Name:RUMAJUAN PABLOENRIQUE JIMENEZ Subscriber ID:Not on file Address: [address] [place] [phone] Payer ID:Not on file Group ID:Not on file Type:Self Pay Address: [place], [place] [facility] SELF PAY NO INSURANCE Member Subscriber Plan / Payer (Ef fective for All Dates) Name:Enrique iDetz Member ID:Not on file Relation to Subscriber:Not on file Name:RUMAJUAN PABLOENRIQUE JIMENEZ Subscriber ID:Not on file Address: [address] [place] [id number] Payer ID:Not on file Group ID:Not on file Type:Self Pay Address: [place], [place] Advance Directives * Full Code (Latest Code Status on File) Date Activated Date Inactivated Comments 06/28/2023 3:55 PM 06/30/2023 2:32 PM
--- OUTSIDE RECORDS SUMMARY | 2024-08-13 01:23 | XMS_ITS | Clinical Summary ---
Author Organization [facility] Address [address] [place] [address] Care Team Providers Care Crop Scout Name Role Phone Jace Barrera MD Primary Care Provider [phone] Allergies No known active allergies Medications cholecalciferol , vitamin D3, 1,000 unit tablet,chewable Take 1 tablet/chew tab by mouth daily Active qarnwbrb57-vaev -rsukqh9-ry-msc 1.5 mg iron- 8.73 mg-6.4 mg capsule,IR [...] 11/20 Assessment & Plan (01/24/2023 11:17 PM HAIRSPRING STUDDER): Patient is encouraged to lose weight with a combination of caloric reduction and increased exercise. Various strategies discussed. The long-term risks associated with continued morbid obesity discussed. Fatigue 06/21/2020 Assessment & Plan (10/14/2020 10:56 PM CDT): Increase vitamin-D supplementation and check level in 4 months. B12 and TSH normal Vitamin D deficiency 06/21/2020 Assessment & Plan (01/24/2023 11:17 PM HAIRSPRING STUDDER): Continue vitamin-D supplementation check level in 1 [...] 10/21/2018 Assessment & Plan (04/18/2019 8:46 AM HAIRSPRING STUDDER): Currently resolved and restart PPI as needed. Assessment & Plan (10/21/2018 2:45 PM CDT): Increase Ranitidine to 300 mg at bedtime every day. Recommend Tonsillectomy Recurrent tonsillitis 10/04/2018 Assessment & Plan (10/05/2018 3:53 PM CDT): Take Augmentin with a meal, have a Probiotic at a different meal (4 hours in between) [place] screen - call with results Follow up in 4-6 weeks If no improvement, consider Tonsillectomy Good hydration Adequate sleep 7-8 hours Idiopathic scoliosis 04/12/2018 Overview (04/12/2018): 2015 Healthcare maintenance 04/12/2018 Assessment & Plan (01/24/2023 11:16 PM HAIRSPRING STUDDER): Flu shot each December. Tetanus booster every 10 years. Follow-up the electrocardiograph operator for breast exam and pelvic exam as [...] needed. Assessment & Plan (04/18/2019 8:46 AM HAIRSPRING STUDDER): Flu shot each December. Tetanus booster every 10 years. Follow-up with the electrocardiograph operator for breast exam and pelvic exam as they direct. Diet exercise for weight loss discussed. Will see her back in 1 year for physical and fasting lab sooner if needed. Assessment & Plan (04/12/2018 9:02 AM HAIRSPRING STUDDER): Flu shot each December. Update her tetanus booster today. She should see her electrocardiograph operator yearly for breast exam and pelvic exam [...] on file Legal Sex Female 6:13 PM HAIRSPRING STUDDER Gender Identity Female 01/15/2021 8:48 PM CDT [...] age to complete this topic Insurance [employer] Address: [facility] [address] [place] [address] [facility] CHOICE PLUS CHOICE PLUS CHOICE PLUS Care Teams Crop Scout Relationship Specialty Start Date End Date Jace Barrera MD [address] [address] PCP - General Internal Medicine 02/01/24
[2024-08-13 01:33] LABS: Basophils Percent Auto 0.4 % (0.2-1.2); Eosinophils Absolute Auto 0.1 K/mm3 (0-0.3); Eosinophils Percent Auto 0.9 % (0-4.4); Hematocrit 35.8 % (37.0-47.0); Hemoglobin 11.6 g/dL (12.0-15.0); Immature Granulocyte Absolute 0.05 K/mm3 (0.00-0.031); Immature Granulocyte Percent A 0.6 % (0-0.5); Lymphocytes Absolute Auto 1.87 K/mm3 (0.9-3.2); Lymphocytes Percent Auto 23.2 % (18.3-44.2); Mean Corpuscular HGB Conc 32.4 g/dl (32-36); Mean Corpuscular Hemoglobin 27.7 pg (26-34); Mean Corpuscular Volume 85.4 fl (80-100); Mean Platelet Volume 10.6 fl (7.4-10.4); Monocytes Absolute Auto 0.7 K/mm3 (0.1-0.6); Monocytes Percent Auto 8.6 % (2.6-8.5); Neutrophils Absolute Auto 5.4 K/mm3 (1.3-6.7); Neutrophils Percent Auto 66.3 % (45.5-73.1); Platelet Count Result 273 k/mm3 (150-375); Red Blood Count 4.19 M/mm3 (4.2-5.4); Red Cell Distribution Width 13.8 % (11.5-14.5); White Blood Count 8.1 K/mm3 (4.5-10.0)
[2024-08-13 01:46] LABS: Alanine Aminotransferase 18 U/L (6-35); Albumin Level 3.3 g/dL (3.5-5.1); Alkaline Phosphatase 197 U/L (38-126); Anion Gap 11 mmol/L (4-12); Aspartate Amino Transferase 22 U/L (14-36); Bilirubin,Total 0.3 mg/dL (0.2-1.3); Blood Urea Nitrogen 10 mg/dL (7-17); Calcium 9.1 mg/dL (8.4-10.2); Carbon Dioxide 15 mmol/L (22-30); Chloride 109 mmol/L (98-107); Estimated CRCL calculation 118 ml/min; Estimated Glomerular Filt Rate > 60; Glucose 100 mg/dL (65-110); Potassium 3.4 mmol/L (3.4-5.0); Sodium 135 mmol/L (137-145)
--- NOTE | 2024-08-13 01:48 | LDADM ---
This patient, Edilma Moon, was admitted to Labor/Delivery/Recovery 102 on 08/13/24 at 00:31. Plans for labor, pain management and were discussed with patient. Patient/family oriented to hospital policies and general routines including ID bracelet, bed and alarms, visiting hours, pain management, procedures, bathroom and other care routines, personal items, smoking policy, room service/diet and guest tray routines, infant security routines, and visiting hours. Patient/Family are encouraged to report perceived risks to care and to ask questions if they do not understand what they are told or what they should do. See [facility] for further documentation.
--- NOTE | 2024-08-13 02:09 | P.PNAN_ITS ---
Anes - Eval Pre Procedure Procedure: Labor epidural Date/Time: 08/13/24 02:09 Preop Diagnosis: Abdominal pain with contractions Pre Op Diagnosis: Contractions Patient Data Age: 28 Gender: F Height: 1.52 m Weight: 95.45 kg Last Vital Signs Pulse 74 08/13/24 02:01 BP 109/62 08/13/24 02:01 Pulse Ox 99 08/13/24 02:07 O2 Del Method Room Air 08/13/24 01:26 Allergies Allergy/AdvReac Type Severity Reaction Status Date / Time No Known Allergies Allergy Verified 08/08/24 12:42 Home Medications ?Medication ?Instructions ?Recorded ?Confirmed ?Type vit no.133-ferrous 1 tablet PO DAILY 06/26/23 08/13/24 History fumarate 28 mg-folic acid 800 mcg tablet () nifedipine 30 mg tablet,extended 30 mg PO DAILY #30 tabs 08/03/24 08/13/24 Rx release 24 hr (Procardia XL) aspirin 81 mg tablet,delayed 81 mg PO DAILY 08/04/24 08/13/24 [facility]04/[facility] 08/13/24 History Verio test strips) [facility] 08/04/24 08/13/24 History Verio Flex Meter) [facility] 08/04/24 08/04/24 History Plus Lancet) Laboratory Tests 08/13/24 01:27 WBC 8.1 K/mm3 (4.5-10.0) RBC 4.19 L M/mm3 (4.2-5.4) Hgb 11.6 L g/dL (12.0-15.0) Hct 35.8 L % (37.0-47.0) MCV 85.4 fl (80-100) MCH 27.7 pg (26-34) MCHC 32.4 g/dl (32-36) RDW 13.8 % (11.5-14.5) Plt Count 273 k/mm3 (150-375) MPV 10.6 H fl (7.4-10.4) Immature Gran % (Auto) 0.6 H % (0-0.5) Neut % (Auto) 66.3 % (45.5-73.1) Lymph % (Auto) 23.2 % (18.3-44.2) [place] % (Auto) 8.6 H % (2.6-8.5) Eos % (Auto) 0.9 % (0-4.4) Baso % (Auto) 0.4 % (0.2-1.2) Lymph # (Auto) 1.87 K/mm3 (0.9-3.2) [place] # (Auto) 0.7 H K/mm3 (0.1-0.6) Eos # (Auto) 0.1 K/mm3 (0-0.3) Baso # (Auto) 0.0 K/mm3 (0.0-0.1) Abs Immat Gran (auto) 0.05 H K/mm3 (0.00-0.031) Absolute Neuts (auto) 5.4 K/mm3 (1.3-6.7) Absolute Nucleated RBC 0.000 K/mm3 (0.0-0.012) Nucleated RBC % 0.0 % (0.0-0.2) Sodium 135 L mmol/L (137-145) Potassium 3.4 mmol/L (3.4-5.0) Chloride 109 H mmol/L (98-107) Carbon Dioxide 15 L mmol/L (22-30) Anion Gap 11 mmol/L (4-12) BUN 10 mg/dL (7-17) Creatinine 0.64 L mg/dL (0.7-1.0) Estim Creat Clear Calc 118 ml/min Estimated GFR > 60 (59 - ) Glucose 100 mg/dL (65-110) Calcium 9.1 mg/dL (8.4-10.2) Total Bilirubin 0.3 mg/dL (0.2-1.3) AST 22 U/L (14-36) ALT 18 U/L (6-35) Alkaline Phosphatase 197 H U/L (38-126) Total Protein 7.0 g/dL (6.3-8.2) Albumin 3.3 L g/dL (3.5-5.1) HIV 1&2 Ab/P24 Ag 4thGn Pending : gestational age HCG: positive Patient hx anesthesia problems: none Family hx anesthesia problems: none Results Review: All pre-operative results and documents have been reviewed as part of the pre- operative evaluation. [facility] Past Medical History Medical History (Updated 08/13/24 @ 02:10 by Killian Garcia Jr., CRNA) Dichorionic diamniotic twin Morbid obesity Family History Family History (Updated 08/08/24 @ 12:35 by Patricia Gates, [place]) Sibling Dwarfism Mother Diabetes mellitus Father Hypertension Social History Social History Smoking status: Never smoker Alcohol intake: current Drinks per week: 3 Alcohol use details: WHEN NOT Substance use: never Substance use type: does not use Do You Feel Safe in your Home?: Yes Lack of Transportation: No Lack of Food: Never True Current Housing: I Have Housing Concerned About Future Housing: No Difficulty Paying Gas/Electric Bills: No Difficulty Paying for Meds: No Currently Unemployed: No Education: Trade/Vocational Certificate Difficulty w/ Childcare or Family Care: No Living arrangements: with family Spiritual care concerns: No Exam Day of Procedure 08/13/24 02:09 Patient weight: morbidly obese Airway: Mallampati scale class II
[2024-08-13 02:13] LABS: Syphilis IgG/IgM Antibody Negative (Negative)
[2024-08-13 02:27] LABS: HIV 1/2 Ab P24 Ag Result Negative (Negative)
[2024-08-13 03:44] LABS: Glucose Point of Care 93 mg/dl (65-105)
[2024-08-13 05:29] LABS: Glucose Point of Care 85 mg/dl (65-105)
--- NOTE | 2024-08-13 08:23 | PM.IMHP ---
H&P: HPI History of Present Illness Date/Time: 08/13/24 08:23 Chief Complaint: pt is a at 36.2 weeks gestation, with di/di twins, pt arrived to labor and deliver 5 cm and was admitted to labor and delivery. Bobby Ramey was notified of admission. this has been complicated by cervical incompetence and a cerclage was in place until 2 weeks ago when it was removed by dr. campo. has also been complicated by diet controlled GDM. Past history of delivery at 33.4 weeks with placental abruption. Review of Systems Review of Systems: All systems reviewed & are unremarkable except as noted in HPI and below PMFSH Past Medical History Medical History (Updated 08/13/24 @ 02:10 by Killian Garcia Jr., CRNA) Dichorionic diamniotic twin Morbid obesity Family History Family History (Updated 08/08/24 @ 12:35 by Patricia Gates, [place]) Sibling Dwarfism Mother Diabetes mellitus Father Hypertension Social History Social History Smoking status: Never smoker Alcohol intake: current Drinks per week: 3 Alcohol use details: WHEN NOT Substance use: never Substance use type: does not use Do You Feel Safe in your Home?: Yes Lack of Transportation: No Lack of Food: Never True Current Housing: I Have Housing Concerned About Future Housing: No Difficulty Paying Gas/Electric Bills: No Difficulty Paying for Meds: No Currently Unemployed: No Education: Trade/Vocational Certificate Difficulty w/ Childcare or Family Care: No Living arrangements: with family Spiritual care concerns: No Meds Home Medications and Allergies Home Medications ?Medication ?Instructions ?Recorded ?Confirmed ?Type vit no.133-ferrous 1 tablet PO DAILY 06/26/23 08/13/24 History fumarate 28 mg-folic acid 800 mcg tablet () nifedipine 30 mg tablet,extended 30 mg PO DAILY #30 tabs 08/03/24 08/13/24 Rx release 24 hr (Procardia XL) aspirin 81 mg tablet,delayed 81 mg PO DAILY 08/04/24 08/13/24 History release blood sugar diagnostic ([facility] 08/04/24 08/13/24 History Verio test strips) blood-glucose meter ([facility] 08/04/24 08/13/24 History Verio Flex Meter) lancets 33 gauge ([facility] 08/04/24 08/04/24 History Plus Lancet) Allergies Allergy/AdvReac Type Severity Reaction Status Date / Time No Known Allergies Allergy Verified 08/08/24 12:42 Vital Signs Vital Signs - 24 hr 08/13/24 00:47 08/13/24 01:00 08/13/24 01:01 Temperature 36.8 C Pulse Rate 81 78 Blood Pressure 127/76 122/77 Pulse Oximetry Oxygen Delivery 08/13/24 01:26 08/13/24 02:01 08/13/24 02:07 Temperature Pulse Rate 74 Blood Pressure 109/62 Pulse Oximetry 99 Oxygen Delivery Room Air 08/13/24 02:12 08/13/24 02:13 08/13/24 02:16 Temperature Pulse Rate 85 Blood Pressure 113/70 Pulse Oximetry 100 100 Oxygen Delivery 08/13/24 02:18 08/13/24 02:20 08/13/24 02:21 Temperature Pulse Rate 90 90 Blood Pressure 120/79 114/71 Pulse Oximetry 100 Oxygen Delivery 08/13/24 02:23 08/13/24 02:26 08/13/24 02:28 Temperature Pulse Rate 83 86 75 Blood Pressure 116/57 L 118/72 105/59 L Pulse Oximetry 99 99 Oxygen Delivery 08/13/24 02:31 08/13/24 02:33 08/13/24 02:36 Temperature Pulse Rate 78 65 70 Blood Pressure 104/62 104/61 109/64 Pulse Oximetry 100 Oxygen Delivery 08/13/24 02:38 08/13/24 02:41 08/13/24 02:43 Temperature Pulse Rate 73 72 79 Blood Pressure 103/63 105/56 L 106/57 L Pulse Oximetry 100 100 Oxygen Delivery 08/13/24 02:46 08/13/24 02:48 08/13/24 02:51 Temperature Pulse Rate 75 76 70 Blood Pressure 109/53 L 107/56 L 107/60 Pulse Oximetry 100 Oxygen Delivery 08/13/24 02:53 08/13/24 02:56 08/13/24 02:58 Temperature Pulse Rate 76 72 70 Blood Pressure 110/54 L 107/59 L 111/61 Pulse Oximetry 100 99 Oxygen Delivery 08/13/24 03:01 08/13/24 03:03 08/13/24 03:08 Temperature Pulse Rate 82 Blood Pressure 113/59 L Pulse Oximetry 100 99 Oxygen Delivery 08/13/24 03:13 08/13/24 03:16 08/13/24 03:18 Temperature Pulse Rate 82 Blood Pressure 98/58 L Pulse Oximetry 98 98 Oxygen Delivery 08/13/24 03:23 08/13/24 03:28 08/13/24 03:31 Temperature Pulse Rate 72 Blood Pressure 111/68 Pulse Oximetry 98 100 Oxygen Delivery 08/13/24 03:33 08/13/24 03:38 08/13/24 03:43 Temperature Pulse Rate Blood Pressure Pulse Oximetry 98 98 98 Oxygen Delivery 08/13/24 03:46 08/13/24 03:48 08/13/24 03:53 Temperature Pulse Rate 76 Blood Pressure 113/68 Pulse Oximetry 98 98 Oxygen Delivery 08/13/24 03:58 08/13/24 04:01 08/13/24 04:03 Temperature Pulse Rate 79 Blood Pressure 106/68 Pulse Oximetry 100 100 Oxygen Delivery 08/13/24 04:08 08/13/24 04:13 08/13/24 04:16 Temperature Pulse Rate 84 Blood Pressure 108/89 Pulse Oximetry 100 100 Oxygen Delivery 08/13/24 04:18 08/13/24 04:23 08/13/24 04:28 Temperature Pulse Rate Blood Pressure Pulse Oximetry 100 100 99 Oxygen Delivery 08/13/24 04:31 08/13/24 04:33 08/13/24 04:38 Temperature Pulse Rate 80 Blood Pressure 114/64 Pulse Oximetry 99 99 Oxygen Delivery 08/13/24 04:43 08/13/24 04:46 08/13/24 04:48 Temperature Pulse Rate 72 Blood Pressure 120/71 Pulse Oximetry 99 98 Oxygen Delivery 08/13/24 04:53 08/13/24 04:58 08/13/24 05:01 Temperature Pulse Rate 80 Blood Pressure 112/73 Pulse Oximetry 98 98 Oxygen Delivery 08/13/24 05:03 08/13/24 05:08 08/13/24 05:13 Temperature Pulse Rate Blood Pressure Pulse Oximetry 98 98 99 Oxygen Delivery 08/13/24 05:16 08/13/24 05:18 08/13/24 05:23 Temperature Pulse Rate 77 Blood Pressure 114/75 Pulse Oximetry 99 100 Oxygen Delivery 08/13/24 05:24 08/13/24 05:28 08/13/24 05:31 Temperature 36.5 C Pulse Rate 71 Blood Pressure 106/64 Pulse Oximetry 100 Oxygen Delivery 08/13/24 05:33 08/13/24 05:38 08/13/24 05:43 Temperature Pulse Rate Blood Pressure Pulse Oximetry 100 99 98 Oxygen Delivery 08/13/24 05:46 08/13/24 05:48 08/13/24 05:53 Temperature Pulse Rate 73 Blood Pressure 104/63 Pulse Oximetry 97 97 Oxygen Delivery 08/13/24 05:58 08/13/24 06:01 08/13/24 06:03 Temperature Pulse Rate 75 Blood Pressure 102/56 L Pulse Oximetry 99 98 Oxygen Delivery 08/13/24 06:08 08/13/24 06:13 08/13/24 06:16 Temperature Pulse Rate 80 Blood Pressure 99/58 L Pulse Oximetry 98 99 Oxygen Delivery 08/13/24 06:18 08/13/24 06:23 08/13/24 06:28 Temperature Pulse Rate Blood Pressure Pulse Oximetry 100 99 98 Oxygen Delivery 08/13/24 06:31 08/13/24 06:33 08/13/24 06:38 Temperature Pulse Rate 73 Blood Pressure 101/60 Pulse Oximetry 100 100 Oxygen Delivery 08/13/24 06:43 08/13/24 06:46 08/13/24 06:48 Temperature Pulse Rate 77 Blood Pressure 90/48 L Pulse Oximetry 100 100 Oxygen Delivery 08/13/24 06:53 08/13/24 06:58 08/13/24 07:01 Temperature Pulse Rate 75 Blood Pressure 87/49 L Pulse Oximetry 100 99 Oxygen Delivery 08/13/24 07:03 08/13/24 07:08 08/13/24 07:13 Temperature Pulse Rate 75 Blood Pressure 92/52 L Pulse Oximetry 100 100 98 Oxygen Delivery 08/13/24 07:16 08/13/24 07:18 08/13/24 07:23 Temperature Pulse Rate 70 Blood Pressure 90/44 L Pulse Oximetry 99 98 Oxygen Delivery 08/13/24 07:28 08/13/24 07:31 08/13/24 07:33 Temperature Pulse Rate 71 Blood Pressure 94/52 L Pulse Oximetry 98 99 Oxygen Delivery 08/13/24 07:36 08/13/24 07:38 08/13/24 07:43 Temperature 36.3 C L Pulse Rate Blood Pressure Pulse Oximetry 100 100 Oxygen Delivery 08/13/24 07:46 08/13/24 07:48 08/13/24 07:53 Temperature Pulse Rate 71 Blood Pressure 106/62 Pulse Oximetry 100 100 Oxygen Delivery 08/13/24 07:58 08/13/24 08:01 08/13/24 08:03 Temperature Pulse Rate 81 Blood Pressure 111/70 Pulse Oximetry 100 100 Oxygen Delivery 08/13/24 08:08 08/13/24 08:13 08/13/24 08:16 Temperature Pulse Rate 83 Blood Pressure 113/71 Pulse Oximetry 100 100 Oxygen Delivery 08/13/24 08:18 Temperature Pulse Rate Blood Pressure Pulse Oximetry 100 Oxygen Delivery Exam Const: General: cooperative and healthy appearing Chest: Chest palpation & inspection: normal inspection of the chest Resp: Effort & Inspection: normal respiratory effort GI: Other: soft/gravid : Other: SVE 5/80/-2 AROM clear fluid Back/Spine/Pelvis: Back: no CVA tenderness Skin: General skin exam: normal color and no rashes or lesions noted Neuro: General: patient oriented x3 Extrem: General: normal to inspection Psych: Appearance: grossly normal H&P: Results Labs Labs: Short CBC 08/13/24 Range/Units 01:27 WBC 8.1 (4.5-10.0) K/mm3 Hgb 11.6 L (12.0-15.0) g/dL Hct 35.8 L (37.0-47.0) % Plt Count 273 (150-375) k/mm3 BMP 08/13/24 01:27 Sodium 135 L Potassium 3.4 Chloride 109 H Carbon Dioxide 15 L BUN 10 Creatinine 0.64 L Glucose 100 Calcium 9.1 Liver Function 08/13/24 Range/Units 01:27 Total Bilirubin 0.3 (0.2-1.3) mg/dL AST 22 (14-36) U/L ALT 18 (6-35) U/L Alkaline Phosphatase 197 H (38-126) U/L Albumin 3.3 L (3.5-5.1) g/dL Assessment and Plan Assessment and plan (1) Dichorionic diamniotic twin : Code(s): O30.049 - Twin , dichorionic/diamniotic, unspecified trimester Status: Acute Plan dr. campo and sp to be present at delivery
[2024-08-13 09:38] LABS: Glucose Point of Care 77 mg/dl (65-105)
[2024-08-13 09:53] LABS: Glucose Point of Care 79 mg/dl (65-105)
[2024-08-13] MEDS: OXYTOCIN 30 UNITS/NS 500 ML 30 UNITS/500 ML BAG IV CONT (10:05)
[2024-08-13 12:01] LABS: Glucose Point of Care 74 mg/dl (65-105)
--- NOTE | 2024-08-13 13:59 | PM.OBPRVD ---
OB - Vaginal Delivery Note Procedure Delivery date: 08/13/24 Events: Breech Presentation (2nd baby) and Other (Twins) Intrapartal Events: Non-Reassuring Status and Other (Breech presentation of 2nd) Delivery augmentation: Pitocin Delivery monitor: External FHT and External Uterine Route of delivery: Episiotomy description: None Laceration Description: None Quantitative Blood Loss (ml): 0 Disposition: Floor Complications: No immediate complications Narrative: 1st infant was delivered vaginally. Second delivery was delivered by section. An external cephalic version with Internal assistance was attempted using ultrasound guidance and it failed. heart tones dropped and the infant could not be turned. It was fixed in the breech position. Proceeded with emergent .
--- NOTE | 2024-08-13 14:07 | W.PM.OBCSD ---
OB - Delivery Note Procedure Delivery date: 08/13/24 Pre-op diagnosis: Breech Presentation (Of 2nd twin) and Non-Reassuring Status Post-op Diagnosis: Same Induction method: None Delivery augmentation: Pitocin Delivery monitor: External FHT and External Uterine Procedure Performed: Primary Surgeon: Ralph Rosales MD Anesthesia type: Epidural Description of Procedure/Findings: The patient was taken the operating room.? She was prepped and draped in dorsal supine position with a leftward tilt.? This was done after spinal anesthetic was applied.? A low-transverse skin incision was made and carried down till of the fascia with the knife.? The fascial incision was made with the knife.? The fascial incision was extended laterally with Calvert scissors.? The fascia was tented upward superiorly and inferiorly the rectus muscles were dissected off bluntly.? The rectus muscles were the midline.? The preperitoneal fat and peritoneum were dissected open bluntly at the superior aspect of the rectus muscles.? The peritoneal incision was extended superior and inferior with good position of bladder.? The uterine incision was made with a scalpel down to the level of the amniotic cavity.? The amniotic cavity was entered bluntly.? The infant was delivered.? The cord was clamped and cut and the was handed off to waiting pediatric staff.? Cord bloods were obtained.? The placenta was removed manually.? The uterus was exteriorized.? The uterus was cleared of all clots, debris and membranes.? The uterus was closed in 0 Vicryl running lock fashion.? An imbricating over a was placed along the incision line as well.? The uterus was returned to the abdomen.? The gutters were cleared of all clots and debris.? The fascia was closed with 0 Vicryl running fashion.? The subcutaneous tissue was irrigated pinpoint bleeders were cauterized.? The skin was closed with subcuticular absorbable red.? The skin incision line was covered with glue.? The patient tolerated the procedure well.? She has taken recovery room in stable condition.? Sponge lap and needle counts were correct x2.? Pathology: Yes Complications: No immediate complications Condition: Stable Disposition: Floor
[2024-08-13] MEDS: HYDROcodone/acetaminophen (*CRX) 5-325 MG TABLET 1 TAB PO (15:15)
--- NOTE | 2024-08-13 15:24 | PC.NURSE ---
Dr. Rosales called and notified of Moderate to heavy bleeding with firm uterus and one large clot expressed before leaving the OR. Order received for 1000 mg of Cytotec rectal.
[2024-08-13] MEDS: miSOPROStol 200 MCG TABLET 1000 MCG RECTAL (15:33)
--- NOTE | 2024-08-13 16:52 | OBPPTRN ---
Patient transferred to post room # 277 via stretcher. Support person present. Oriented to unit, room, information board, rooming in, admission packet and security measures. Patient verbalizes understanding.
[2024-08-13] MEDS: KETOROLAC 15 MG/ML VIAL (*BKC) IV PUSH ×2 (17:23→23:30)
[2024-08-13] MEDS: DOCUSATE SODIUM 100 MG CAPSULE PO (17:23)
[2024-08-13] MEDS: SIMETHICONE 80 MG TAB.CHEW PO (17:23)
[2024-08-13] MEDS: ACETAMINOPHEN 325 MG TABLET 650 MG PO ×2 (17:23→23:30)
[2024-08-13] MEDS: LIDOCAINE 5% PATCH 1 PATCH TRANSDERM (17:24)
[2024-08-13] MEDS: BENZOCAINE 20% AER SPR (*SP) 56 GM CAN 1 SPRAY (18:15)
[2024-08-13] MEDS: WITCH HAZEL 40 PADS 1 PAD (18:16)
[2024-08-13] MEDS: DEXTROSE 5%/0.45% SOD CHL 1,000 ML 125 ML IV CONT (19:04)
[2024-08-14] VITALS: BP 100/69; PULSE 79; RESP 20; TEMP 36.5; O2SAT 98
[2024-08-14] MEDS: DEXTROSE 5%/0.45% SOD CHL 1,000 ML 125 ML IV CONT (02:30)
[2024-08-14 03:56] LABS: Basophils Percent Auto 0.2 % (0.2-1.2); Eosinophils Percent Auto 0.3 % (0-4.4); Hematocrit 28.6 % (37.0-47.0); Hemoglobin 9.1 g/dL (12.0-15.0); Immature Granulocyte Absolute 0.05 K/mm3 (0.00-0.031); Immature Granulocyte Percent A 0.5 % (0-0.5); Lymphocytes Absolute Auto 1.88 K/mm3 (0.9-3.2); Lymphocytes Percent Auto 18.7 % (18.3-44.2); Mean Corpuscular HGB Conc 31.8 g/dl (32-36); Mean Corpuscular Hemoglobin 27.2 pg (26-34); Mean Corpuscular Volume 85.6 fl (80-100); Mean Platelet Volume 10.4 fl (7.4-10.4); Monocytes Absolute Auto 0.9 K/mm3 (0.1-0.6); Monocytes Percent Auto 8.7 % (2.6-8.5); Neutrophils Absolute Auto 7.2 K/mm3 (1.3-6.7); Neutrophils Percent Auto 71.6 % (45.5-73.1); Platelet Count Result 193 k/mm3 (150-375); Red Blood Count 3.34 M/mm3 (4.2-5.4); Red Cell Distribution Width 13.8 % (11.5-14.5)
[2024-08-14] MEDS: HYDROcodone/acetaminophen (*CRX) 10-325 MG TABLET 1 TAB PO ×2 (04:30→21:00)
[2024-08-14] MEDS: ACETAMINOPHEN 325 MG TABLET 650 MG PO ×4 (05:30→23:00)
[2024-08-14] MEDS: KETOROLAC 15 MG/ML VIAL (*BKC) IV PUSH ×2 (05:30→11:49)
--- NOTE | 2024-08-14 07:24 | PM.OBPNVD ---
OB - PN: Subj Subjective Date/time seen: 08/14/24 07:24 Patient comments: no complaints, pain well controlled, tolerating diet and flatus present OB - PN: Obj Data Labs 08/14/24 03:43 08/13/24 01:27 Labs: Laboratory Results - last 24 hr 08/13/24 08/13/24 08/13/24 07:36 09:50 11:57 WBC RBC Hgb Hct MCV MCH MCHC RDW Plt Count MPV Immature Gran % (Auto) Neut % (Auto) Lymph % (Auto) [place] % (Auto) Eos % (Auto) Baso % (Auto) Lymph # (Auto) [place] # (Auto) Eos # (Auto) Baso # (Auto) Abs Immat Gran (auto) Absolute Neuts (auto) Absolute Nucleated RBC Nucleated RBC % POC Capillary Glucose 77 79 74 08/14/24 03:43 WBC 10.0 RBC 3.34 L Hgb 9.1 L Hct 28.6 L MCV 85.6 MCH 27.2 MCHC 31.8 L RDW 13.8 Plt Count 193 MPV 10.4 Immature Gran % (Auto) 0.5 Neut % (Auto) 71.6 Lymph % (Auto) 18.7 [place] % (Auto) 8.7 H Eos % (Auto) 0.3 Baso % (Auto) 0.2 Lymph # (Auto) 1.88 [place] # (Auto) 0.9 H Eos # (Auto) 0.0 Baso # (Auto) 0.0 Abs Immat Gran (auto) 0.05 H Absolute Neuts (auto) 7.2 H Absolute Nucleated RBC 0.000 Nucleated RBC % 0.0 POC Capillary Glucose OB - PN A/P Plan day: 1 Comments: Post Op LTCS - no problems, routine recovery Time Spent With Patient Time: Total time spent is greater than 50% in coordination of care (as documented) at patient's floor/unit and/or counseling patient: Exam Const: General: cooperative, healthy appearing, comfortable and no acute distress Resp: Auscultation: no crackles, no rales, no rhonchi and no wheezes Cardio: Rhythm: regular rhythm Heart sounds: no click and no murmurs GI: Inspection: non-distended Auscultation: normal bowel sounds Extrem: General: normal to inspection, no pedal edema and no calf tenderness
[2024-08-14 08:00] VITALS: BP 99/55; PULSE 72; RESP 16; TEMP 36.9; O2SAT 97
--- NOTE | 2024-08-14 08:00 | PC.NURSE ---
Introductions were made, then consulted with patient to assess needs related to . Discussed with mother her?plans to feed?her and the?experience so far. She plans to pump and bottle feed. She does not desire to feed directly at breast. She has a wearable breast pump that she brought with her. Encouraged frequent and consistent pumping. Resources provided for inpatient and outpatient services with the feeding sheet, mom/baby guide and name written on the communication board. Mother voiced understanding of information and will call if there is a request for assistance. Reported to the Primary RN.
[2024-08-14] MEDS: SIMETHICONE 80 MG TAB.CHEW PO ×3 (09:04→17:37)
[2024-08-14] MEDS: MULTIVIT/MIN/PREN/FOL AC/IRON TABLET 1 TAB PO (09:04)
[2024-08-14] MEDS: ASCORBIC ACID 500 MG TABLET PO (09:05)
[2024-08-14] MEDS: POLYSACCHARIDE IRON COMPLEX 150 MG CAPSULE PO ×2 (09:05→17:38)
[2024-08-14] MEDS: DOCUSATE SODIUM 100 MG CAPSULE PO ×2 (09:05→17:37)
[2024-08-14 13:09] VITALS: BP 99/59; PULSE 68; RESP 18; TEMP 36.9; O2SAT 98
--- NOTE | 2024-08-14 13:33 | WPDANLDPN2 ---
Anes-Prog Note L&D Date/Time: 08/14/24 13:33 Comfortable throughout: labor, delivery (baby A) and section (baby B) Neuraxial method: epidural Epidural/Spinal procedure site: clean & non-tender Neuro status: Neuro function grossly intact. Cardiovascular status: normal Respiratory status: normal Airway patency: baseline Mental status: baseline Post-Op hydration status: normal Vital Signs: Last Vital Signs Temp 98.4 F 08/14/24 13:09 Pulse 68 08/14/24 13:09 Resp 18 08/14/24 13:09 BP 99/59 L 08/14/24 13:09 Pulse Ox 98 08/14/24 13:09 O2 Del Method Room Air 08/13/24 18:40 Pain score (VAS): 3 I/O: Intake & Output 08/13/24 08/14/24 08/14/24 23:59 07:59 15:59 Intake Total 929.2 Output Total 480 1600 700 Balance -480 -670.8 -700 Post-procedural complaints: pruritis mild, no treatment Patient feedback: Patient satisfied with anesthetic care.
--- NOTE | 2024-08-14 13:34 | WPDANLDNPN2 ---
Anes-Prog Note L&D-Neuraxial Date/Time: 08/14/24 13:34 Neuraxial medications: epidural PF morphine Opiod-related complaints: pruritis mild, no treatment Patient feedback: Patient satisfied with post-operative pain management.
[2024-08-14] MEDS: IBUPROFEN 600 MG TABLET PO ×2 (17:37→23:00)
[2024-08-14] MEDS: LIDOCAINE 5% PATCH 1 PATCH TRANSDERM (17:38)
[2024-08-14 19:19] VITALS: BP 109/60; PULSE 95; RESP 16; TEMP 36.9; O2SAT 98
[2024-08-15] MEDS: ACETAMINOPHEN 325 MG TABLET 650 MG PO ×4 (05:04→23:00)
[2024-08-15] MEDS: IBUPROFEN 600 MG TABLET PO ×4 (05:04→23:00)
[2024-08-15 07:30] VITALS: BP 108/67; PULSE 74; RESP 16; TEMP 36.8; O2SAT 98
[2024-08-15] MEDS: POLYSACCHARIDE IRON COMPLEX 150 MG CAPSULE PO ×2 (08:02→17:07)
[2024-08-15] MEDS: LANOLIN (LANSINOH) 7.5 GM CREAM 1 APPLIC TOPICAL (08:02)
[2024-08-15] MEDS: DOCUSATE SODIUM 100 MG CAPSULE PO ×2 (08:02→17:07)
[2024-08-15] MEDS: MULTIVIT/MIN/PREN/FOL AC/IRON TABLET 1 TAB PO (08:02)
[2024-08-15] MEDS: SIMETHICONE 80 MG TAB.CHEW PO ×3 (08:02→17:07)
[2024-08-15] MEDS: ASCORBIC ACID 500 MG TABLET PO (08:05)
[2024-08-15] MEDS: HYDROcodone/acetaminophen (*CRX) 5-325 MG TABLET 1 TAB PO (08:05)
--- NOTE | 2024-08-15 08:26 | P.PNOB_ITS ---
OB - PN: Subj Subjective Date/time seen: 08/15/24 08:26 Interval history: pp day 2 passing flatus voiding without difficulty OB - PN: Obj Data Labs 08/14/24 03:43 08/13/24 01:27 OB - PN A/P Plan day: 2 Plan: routine care Time Spent With Patient Time: Total time spent is greater than 50% in coordination of care (as documented) at patient's floor/unit and/or counseling patient: Review of Systems 2 Review of Systems: All systems reviewed & are unremarkable except as noted in HPI and below Exam 2 Const: General: cooperative, healthy appearing and comfortable Chest: Chest palpation & inspection: normal inspection of the chest Resp: Effort & Inspection: normal respiratory effort Cardio: Rate: regular rate GI: Other: incision CDI Back/Spine/Pelvis: Back: no CVA tenderness
--- NOTE | 2024-08-15 15:34 | PC.NURSE ---
Introductions were made, then consulted with patient to assess needs related to . Discussed with mother her?plans to feed?her infants and the?experience so far, she still plans on only pumping and bottling, she is consistently pumping and getting 15mls each time, she is not having any pain with pumping. Mother does have her own pump that she uses, the [employer], and [facility] is also [facility]. Resources provided for inpatient and outpatient services with the feeding sheet, mom/baby guide and name written on the communication board. Mother voiced understanding of information and will call if there is a request for assistance. Reported to the Primary RN.
[2024-08-15 15:59] VITALS: BP 102/67; PULSE 78; RESP 14; TEMP 36.8; O2SAT 97
[2024-08-15] MEDS: LIDOCAINE 5% PATCH 1 PATCH TRANSDERM (17:07)
[2024-08-15 20:36] VITALS: BP 115/77; PULSE 72; RESP 14; TEMP 37.1; O2SAT 99
[2024-08-16] MEDS: IBUPROFEN 600 MG TABLET PO ×2 (05:00→10:41)
[2024-08-16] MEDS: ACETAMINOPHEN 325 MG TABLET 650 MG PO ×2 (05:00→10:42)
[2024-08-16] MEDS: HYDROcodone/acetaminophen (*CRX) 10-325 MG TABLET 1 TAB PO (05:53)
--- NOTE | 2024-08-16 07:02 | P.PNOB_ITS ---
OB - PN: Subj Subjective Date/time seen: 08/16/24 07:02 Interval history: pp day 3 passing flatus voiding without difficulty planning d/c home OB - PN: Obj Data Labs 08/14/24 03:43 08/13/24 01:27 OB - PN A/P Plan day: 3 Plan: routine care and discharge home Time Spent With Patient Time: Total time spent is greater than 50% in coordination of care (as documented) at patient's floor/unit and/or counseling patient: Review of Systems 2 Review of Systems: All systems reviewed & are unremarkable except as noted in HPI and below Exam 2 Const: General: cooperative and healthy appearing Chest: Chest palpation & inspection: normal inspection of the chest Resp: Effort & Inspection: normal respiratory effort Cardio: Rate: regular rate GI: Other: incision CDI
--- NOTE | 2024-08-16 07:05 | PM.OBDSVD ---
DS: Admitting Diagnosis Discharge Date 08/16/24 Admitting Diagnosis IOL DS: Discharge Diagnosis Discharge Diagnosis (1) Vaginal delivery: Code(s): O80 - Encounter for full-term uncomplicated delivery Status: Acute (2) Delivery by section: Status: Acute OB - DS: Summary OB Procedures : None OB Procedures Intrapartum: Spontaneous Vag Delivery OB Procedures: : None Peripartum Data Laceration Description: None Episiotomy description: None Procedures: Procedures Operation Date: 08/13/24 13:20 Actual Procedure Side Surgeon p Section Not Applicable Ralph Rosales MD Time Spent with Patient Time attestation: Total time spent providing and/or coordinating discharge services: DS: Data Data Completed and Pending Pending studies at discharge: Pending at discharge 08/13/24 17:57 Surgical [PTH] Routine Discharge Plan Discharge Attending physician on discharge: Ralph Rosales Discharging Clinician: Yamila Street Patient Disposition: Home Activity: pelvic rest Diet: regular Patient Instructions: Antibiotic Form Patient Language: Slovak Stand Alone Forms: General Discharge Information Follow-up/Referrals: Ralph Rosales MD [Physician] - Yamila Street CNM [Certified Nurse Sales And Marketing Administrator] - (1 wk alber 4 wk amanda) Discharge Medications: New hydrocodone-acetaminophen 5-325 mg Tablet 1 tablet PO Q3H PRN (Reason: Breakthrough Pain Rated 4-6) 10 Days Qty: 25 0RF Continued 28-800 mg-mcg Tablet 1 tablet PO DAILY nifedipine [Procardia XL] 30 mg tablet extended release 24hr 60 mg PO DAILY ferrous sulfate 325 mg (65 mg iron) tablet 325 mg PO DAILY ascorbic acid (vitamin C) [Acerola C] 500 mg tablet,chewable 500 mg PO DAILY (DME) blood-glucose meter [OneTouch Verio Flex meter] Misc MISCELLANEOUS (DME) OneTouch Verio test strips Strip MISCELLANEOUS (DME) lancets [OneTouch Delica Plus Lancet] 33 gauge misc MISCELLANEOUS Discontinued aspirin 81 mg tablet,delayed release (DR/EC) 81 mg PO DAILY Date of admission: 08/13/24 00:31 Primary Care Provider: PHYSICIAN,BOILER ENGINEER Admitting Provider: Ralph Rosales Attending physician on admission: Ralph Rosales Condition: Stable
[2024-08-16 08:05] VITALS: BP 123/80; PULSE 73; RESP 16; TEMP 36.3; O2SAT 98
[2024-08-16] MEDS: POLYSACCHARIDE IRON COMPLEX 150 MG CAPSULE PO (09:00)
[2024-08-16] MEDS: SIMETHICONE 80 MG TAB.CHEW PO (09:00)
[2024-08-16] MEDS: MULTIVIT/MIN/PREN/FOL AC/IRON TABLET 1 TAB PO (09:00)
[2024-08-16] MEDS: ASCORBIC ACID 500 MG TABLET PO (09:00)
[2024-08-16] MEDS: DOCUSATE SODIUM 100 MG CAPSULE PO (09:00)
--- NOTE | 2024-08-16 09:51 | PC.NURSE ---
Checked in with patient to assess any needs related to and/or pumping. Mother is exclusively pumping and bottle feeding both infants and denies any additional information or education at this time. Communication board updated, mother will call for assistance if needed.
[2024-08-17 09:54] VITALS: BP 112/68; PULSE 75; RESP 18; TEMP 36.3; O2SAT 99
== END 2024-08-16 15:10 | disposition home or self-care (01) | DRG 786 ==
LOC: ANHLDR 01:21 → ANHOB2 17:09
PROVIDERS: Admitting Provider Obstetrics & Gynecology; Visit Provider Obstetrics & Gynecology
PROC: 10D00Z1 Extraction of Products of Conception, Low, Open Approach (ICD-10-PCS; CPT 59514; principal; 2024-08-13 13:20)
DX: O30.043 Twin pregnancy, dichorionic/diamniotic, third trimester (principal); O34.33 Maternal care for cervical incompetence, third trimester; Z37.2 Twins, both liveborn; Z3A.36 36 weeks gestation of pregnancy; O99.892 Other specified diseases and conditions complicating childbirth; Z87.59 Personal history of other complications of pregnancy, childbirth and the puerperium; O24.420 Gestational diabetes mellitus in childbirth, diet controlled; O32.1XX2 Maternal care for breech presentation, fetus 2; O36.8332 Maternal care for abnormalities of the fetal heart rate or rhythm, third trimester, fetus 2
CPT/HCPCS: 36415; 80053; 82948; 85025; 86593; 86703; 86850; 86900; 86901; 88307; A9270; G0432; J0690; J1885; J2003; J2274; J2405; J2590; J2795; J7120